=== PATIENT | female | born 1970 | race African-American/Black ===

== ENCOUNTER 2017-12-13 15:19 | Emergency (ER) | payer MEDICARE, MEDICAID ==
[2017-12-13 15:54] LABS: #Eosinphils 0.1 thou/uL (0.0-0.7); #Lymphocytes 1.8 thou/uL (1.20-3.40); #Monocytes 0.4 thou/uL (0.11-0.59); #Neutrophils 3.5 thou/uL (1.40-6.50); %Basophils 0.6 % (0.0-1.0); %Eosinophils 2.2 % (0.0-10.0); %Lymphocytes 30.2 % (21.0-51.0); %Monocytes 7.4 % (0.0-10.0); %Neutrophils 59.5 % (42.0-75.0); Hemoglobin 11.8 g/dL (12.0-16.0); Mean Corpuscular HGB CONC 33.6 g/dL (32.0-36.0); Mean Corpuscular Hemoglobin 28.1 pg (27.0-31.0); Mean Corpuscular Volume 83.5 fL (78.0-98.0); Mean Platelet Volume 8.9 fL (7.4-10.4); Platelet Count 219 thou/uL (130-400); RBC Distribution Width 12.1 % (11.5-14.5); White Blood Cell (WBC) Count 5.9 thou/uL (4.8-10.8)
--- NOTE | 2017-12-13 16:04 | RAD ---
SINGLE VIEW CHEST: Date: 12/13/17 COMPARISON: 12/27/14. HISTORY: Intermittent chest pain. FINDINGS: Single view of the chest shows a normal sized cardiomediastinal silhouette. There is no evidence of c onsolidation, mass, or pleural effusion. The bones are unremarkable. IMPRESSION: No evidence of acute cardiopulmonary disease. POS: TPC
[2017-12-13] MEDS ORDERED: Iopamidol 370 76% 100 ML VIAL ONE (16:14)
[2017-12-13 16:16] LABS: ALT (SGPT) 8 U/L (8-55); AST (SGOT) 9 U/L (5-34); Albumin 3.5 g/dL (3.5-5.0); Alkaline Phosphatase 85 U/L (40-150); Anion Gap 14 mmol/L (10-20); BUN (Urea Nitrogen) 8 mg/dL (7.0-18.7); Bilirubin, Total 0.7 mg/dL (0.2-1.2); Calc. Creatinine Clearance 0 mL/min (70-130); Calcium 8.5 mg/dL (7.8-10.44); Carbon Dioxide 24 mmol/L (22-29); Chloride 103 mmol/L (98-107); Estimated GFR-MDRD 74; Globulin 3.2 g/dL (2.4-3.5); Glucose 360 mg/dL (70-105); Potassium 4.7 mmol/L (3.5-5.1); Protein, Total 6.7 g/dL (6.0-8.3); Sodium 136 mmol/L (136-145)
[2017-12-13 16:20] LABS: CKMB 0.3 ng/mL (0-6.6); Troponin I Less than 0.010 ng/mL (< 0.028)
--- NOTE | 2017-12-13 17:29 | CT ---
CTA OF THORAX UTILIZING IV CONTRAST AND 3D REFORMATTED IMAGING: Date: 12/13/17 INDICATION: 47-year-old female with chest pain. FINDINGS: No central or segmental pulmonary embolus is evident. Heart and great vessels appear within normal li mits. No focal consolidation, pleural effusion, or pneumothorax is evident. No enlarged lymph nodes a re present. Visualized upper abdomen is unremarkable for acute abnormality. There is a stable bone is land within the left aspect of T4. IMPRESSION: No central or segmental pulmonary embolus demonstrated. POS: JEREMI
== END 2017-12-13 17:54 | disposition home or self-care (01) ==
LOC: ERS 15:19
DX: M94.0 Chondrocostal junction syndrome [Tietze] (principal); R07.89 Other chest pain; E11.9 Type 2 diabetes mellitus without complications; E78.5 Hyperlipidemia, unspecified; F41.9 Anxiety disorder, unspecified; F31.9 Bipolar disorder, unspecified; Z79.84 Long term (current) use of oral hypoglycemic drugs; Z79.899 Other long term (current) drug therapy
CPT/HCPCS: 36415; 71045; 71275; 80053; 82553; 84484; 85025; 93005

== ENCOUNTER 2018-07-27 14:40 | Emergency (ER) | payer MEDICARE, MEDICAID ==
[2018-07-27] MEDS ORDERED: HYDROcodone/Acetaminophen 10/325 mg Tablet ONE (15:53)
[2018-07-27 17:41] LABS: Bilirubin Negative (Negative); Blood, Urine Negative (Negative); Clarity CLEAR (Clear); Glucose, Urine (Dipstick) >=1000 mg/dL (Negative); Leukocyte Negative (Negative); Nitrite Negative (Negative); Protein, Urine (Dipstick) Negative (Neg-Trace); Specific Gravity, Urine 1.028 (1.002-1.036); pH, Urine 6.5 (5.0-9.0)
[2018-07-27 17:47] LABS: #Eosinphils 0.2 thou/uL (0.0-0.7); #Lymphocytes 1.9 thou/uL (1.20-3.40); #Monocytes 0.7 thou/uL (0.11-0.59); #Neutrophils 4.5 thou/uL (1.40-6.50); %Basophils 0.5 % (0.0-1.0); %Eosinophils 2.5 % (0.0-10.0); %Lymphocytes 25.9 % (21.0-51.0); %Monocytes 9.7 % (0.0-10.0); %Neutrophils 61.3 % (42.0-75.0); Hemoglobin 12.4 g/dL (12.0-16.0); Mean Corpuscular HGB CONC 34.5 g/dL (32.0-36.0); Mean Corpuscular Hemoglobin 28.6 pg (27.0-31.0); Mean Corpuscular Volume 83.1 fL (78.0-98.0); Mean Platelet Volume 9.1 fL (7.4-10.4); Platelet Count 187 thou/uL (130-400); RBC Distribution Width 11.4 % (11.5-14.5); Red Blood Cell (RBC) Count 4.32 mill/uL (4.20-5.40); White Blood Cell (WBC) Count 7.3 thou/uL (4.8-10.8)
[2018-07-27 18:06] LABS: ALT (SGPT) 39 U/L (8-55); AST (SGOT) 7 U/L (5-34); Acetaminophen Less than 6.0 mcg/mL (10.0-30.0); Albumin 3.4 g/dL (3.5-5.0); Alcohol Less than 10 mg/dL (Less than 10); Alkaline Phosphatase 95 U/L (40-150); Anion Gap 12 mmol/L (10-20); BUN (Urea Nitrogen) 6 mg/dL (7.0-18.7); Bilirubin, Total 0.5 mg/dL (0.2-1.2); CK (CPK) 45 U/L (29-168); Calc. Creatinine Clearance 0 mL/min (70-130); Calcium 8.7 mg/dL (7.8-10.44); Carbon Dioxide 26 mmol/L (22-29); Chloride 101 mmol/L (98-107); Estimated GFR-MDRD Greater than 90; Globulin 3.2 g/dL (2.4-3.5); Glucose 193 mg/dL (70-105); Potassium 3.8 mmol/L (3.5-5.1); Protein, Total 6.6 g/dL (6.0-8.3); Salicylate Less than 8.0 mg/dL (15.0-30.0); Sodium 135 mmol/L (136-145)
[2018-07-27 18:11] LABS: Amphetamine Not Detected (NotDetected); Benzodiazepine Screen Not Detected (NotDetected); Cocaine Metabolite Screen Not Detected (NotDetected); Medtox Reader # READER 1; Methamphetamine Not Detected (NotDetected); Opiate Screen Not Detected (NotDetected); Phencyclidine (PCP) Not Detected (NotDetected); THC/Cannabinoid Screen Not Detected (NotDetected)
[2018-07-27 18:12] LABS: Barbiturates Screen Not Detected (NotDetected); Medtox Control Line Valid? VALID (VALID); Methadone Not Detected (NotDetected); Oxycodone Screen Not Detected (NotDetected); Tricyclic Screen Detected (NotDetected)
[2018-07-27] MEDS ORDERED: Fluconazole 100 MG TAB PO SCH (20:30)
[2018-07-27] MEDS ORDERED: Ibuprofen 200 MG TAB ONE (22:41)
[2018-07-27] MEDS ORDERED: metroNIDAZOLE 250 MG TAB ONE (22:50)
[2018-07-29 00:38] LABS: Chlamydia by PCR Not Detected (NotDetected); GC by PCR Not Detected (NotDetected)
== END 2018-07-28 02:04 ==
LOC: ERS 14:40
DX: F31.9 Bipolar disorder, unspecified (principal); N89.8 Other specified noninflammatory disorders of vagina; E11.9 Type 2 diabetes mellitus without complications; E78.5 Hyperlipidemia, unspecified; F41.9 Anxiety disorder, unspecified; F25.0 Schizoaffective disorder, bipolar type; Z79.84 Long term (current) use of oral hypoglycemic drugs; Z79.899 Other long term (current) drug therapy
CPT/HCPCS: 36415; 51701; 80053; 80306; 80307; 81003; 82550; 84443; 85025; 87252; 87480; 87491; 87510; 87591; 87660; 93005

== ENCOUNTER 2018-12-28 11:46 | Emergency (ER) | payer MEDICARE, MEDICAID | END 2018-12-28 14:06 | LOC: ERS 11:46 | DX: Z53.21 Procedure and treatment not carried out due to patient leaving prior to being seen by health care provider (principal) | CPT/HCPCS: 93005 ==

== ENCOUNTER 2019-01-26 00:04 | Emergency (ER) | payer MEDICARE, MEDICAID ==
[2019-01-26 00:52] LABS: Bacteria/HPF None Seen HPF (None Seen); Bilirubin Negative (Negative); Blood, Urine Negative (Negative); Clarity Clear (Clear); Glucose, Urine (Dipstick) Greater than 1000 mg/dL (Negative); Leukocyte 75 Leu/uL (Negative); Nitrite Negative (Negative); Pregnancy Test - Urine (BHCG) Negative (Negative); Pregu Control Background? CLEAR/WHITE (CLR/WHITE); Pregu Control Bar Appear? YES (CONTROL BAR); Protein, Urine (Dipstick) Negative (Neg-Trace); RBC/HPF 0-3 HPF (0-3); Specific Gravity 1.036 (1.002-1.036); Urobilinogen Normal mg/dL (Less than 2)
== END 2019-01-26 01:12 | disposition home or self-care (01) ==
LOC: ERS 00:04
DX: E11.9 Type 2 diabetes mellitus without complications (principal); E78.5 Hyperlipidemia, unspecified; E78.00 Pure hypercholesterolemia, unspecified; I10 Essential (primary) hypertension; F41.9 Anxiety disorder, unspecified; F31.9 Bipolar disorder, unspecified; F25.9 Schizoaffective disorder, unspecified; Z79.899 Other long term (current) drug therapy; Z79.84 Long term (current) use of oral hypoglycemic drugs
CPT/HCPCS: 36416; 81003; 81015; 81025; 99283

== ENCOUNTER 2019-06-16 21:10 | Inpatient (IN) | payer MEDICARE, MEDICAID ==
--- NOTE | 2019-06-16 22:08 | RAD ---
Chest one view HISTORY: Chest pain. COMPARISON: 12/13/2017. FINDINGS: Cardiac silhouette is magnified by projection. Pulmonary vasculature is unremarkable. Mediastinum is midline. No lobar consolidation or evidence of pneumothorax. planograph operator leads overlie the chest. IMPRESSION : No abnormalities are demonstrated.
[2019-06-16 22:09] LABS: #Basophils 0.1 thou/uL (0.0-0.2); #Eosinphils 0.2 thou/uL (0.0-0.7); #Lymphocytes 2.5 thou/uL (1.20-3.40); #Monocytes 0.5 thou/uL (0.11-0.59); #Neutrophils 5.2 thou/uL (1.40-6.50); %Basophils 1.2 % (0.0-1.0); %Eosinophils 1.9 % (0.0-10.0); %Lymphocytes 29.4 % (21.0-51.0); %Monocytes 5.7 % (0.0-10.0); %Neutrophils 61.9 % (42.0-75.0); Hemoglobin 13.5 g/dL (12.0-16.0); Mean Corpuscular HGB CONC 36.2 g/dL (32.0-36.0); Mean Corpuscular Hemoglobin 31.1 pg (27.0-31.0); Mean Corpuscular Volume 85.8 fL (78.0-98.0); Mean Platelet Volume 9.3 fL (7.4-10.4); Platelet Count 200 thou/uL (130-400); RBC Distribution Width 11.5 % (11.5-14.5); Red Blood Cell (RBC) Count 4.35 mill/uL (4.20-5.40); White Blood Cell (WBC) Count 8.4 thou/uL (4.8-10.8)
[2019-06-16 22:28] LABS: ALT (SGPT) 138 U/L (8-55); AST (SGOT) 142 U/L (5-34); Albumin 3.7 g/dL (3.5-5.0); Alkaline Phosphatase 93 U/L (40-110); Anion Gap 15 mmol/L (10-20); BUN (Urea Nitrogen) 10 mg/dL (7.0-18.7); Bilirubin, Total 0.7 mg/dL (0.2-1.2); CK (CPK) 62 U/L (29-168); Calc. Creatinine Clearance 0 mL/min (70-130); Calcium 8.8 mg/dL (7.8-10.44); Carbon Dioxide 22 mmol/L (22-29); Chloride 106 mmol/L (98-107); Estimated GFR-MDRD Greater than 90; Globulin 3.1 g/dL (2.4-3.5); Glucose 155 mg/dL (70-105); Lipase 36 U/L (8-78); Potassium 3.6 mmol/L (3.5-5.1); Protein, Total 6.8 g/dL (6.0-8.3); Sodium 139 mmol/L (136-145)
[2019-06-16] MEDS ORDERED: Aspirin Chewable 81 MG TAB ONE (22:42)
[2019-06-16] MEDS ORDERED: Metoprolol Tartrate 25 MG TAB ONE (22:42)
[2019-06-16] MEDS ORDERED: Nitroglycerin 2% Ointment 1 INCH/1 GM Packet ONE (23:12)
[2019-06-17] MEDS ORDERED: Senokot S 8.6-50 MG TAB PO PRN (01:01)
[2019-06-17] MEDS ORDERED: Dextrose 5% in Water 1,000 ML IV PRN ×2 (01:04→09:45)
[2019-06-17] MEDS ORDERED: Dextrose 50% Abboject 50 ML SYRINGE SLOW IVP PRN ×2 (01:04→09:45)
[2019-06-17] MEDS ORDERED: Insulin Regular 300 UNITS/3 ML VIAL SC PRN (01:04)
[2019-06-17] MEDS ORDERED: Sodium Chloride 0.9% 1,000 ML IV SCH (01:15)
[2019-06-17 01:29] VITALS: BMI 26.9
[2019-06-17] MEDS: Acetaminophen 325 MG TAB PO PRN ×3 (02:04→17:30)
[2019-06-17] MEDS ORDERED: hydrALAZINE 20 MG/ML VIAL SLOW IVP PRN (02:06)
[2019-06-17] MEDS ORDERED: Temazepam 15 MG CAP PO PRN (02:06)
[2019-06-17 02:11] LABS: Troponin I Less than 0.010 ng/mL (< 0.028)
[2019-06-17] MEDS: Nitroglycerin 0.4 MG TAB (25 Tab Bottle) SL PRN ×3 (02:27→19:11)
[2019-06-17] MEDS ORDERED: Magnesium 2 GM/50 ML 2 GM in Premix Bag 1 BAG IVPB SCH (03:00)
[2019-06-17 04:52] LABS: #Eosinphils 0.3 thou/uL (0.0-0.7); #Lymphocytes 3.2 thou/uL (1.20-3.40); #Monocytes 0.6 thou/uL (0.11-0.59); #Neutrophils 3.7 thou/uL (1.40-6.50); %Basophils 0.4 % (0.0-1.0); %Lymphocytes 40.7 % (21.0-51.0); %Monocytes 7.5 % (0.0-10.0); %Neutrophils 47.4 % (42.0-75.0); Hemoglobin 11.2 g/dL (12.0-16.0); Mean Corpuscular HGB CONC 33.4 g/dL (32.0-36.0); Mean Corpuscular Hemoglobin 28.9 pg (27.0-31.0); Mean Corpuscular Volume 86.5 fL (78.0-98.0); Mean Platelet Volume 9.9 fL (7.4-10.4); Platelet Count 194 thou/uL (130-400); RBC Distribution Width 11.5 % (11.5-14.5); Red Blood Cell (RBC) Count 3.88 mill/uL (4.20-5.40); White Blood Cell (WBC) Count 7.8 thou/uL (4.8-10.8)
[2019-06-17 04:57] LABS: ALT (SGPT) 100 U/L (8-55); AST (SGOT) 62 U/L (5-34); Albumin 2.9 g/dL (3.5-5.0); Alkaline Phosphatase 83 U/L (40-110); Anion Gap 13 mmol/L (10-20); BUN (Urea Nitrogen) 11 mg/dL (7.0-18.7); Bilirubin, Total 0.5 mg/dL (0.2-1.2); Calc. Creatinine Clearance 125 mL/min (70-130); Calcium 7.9 mg/dL (7.8-10.44); Carbon Dioxide 22 mmol/L (22-29); Cardiac Risk 3.8 (Less than 4.5); Chloride 108 mmol/L (98-107); Cholesterol 106 mg/dl (< 200 Desired); Estimated GFR-MDRD Greater than 90; Glucose 156 mg/dL (70-105); HDL Cholesterol 28 mg/dL (>60 Neg Risk); LDL Cholesterol, Calculated 42 mg/dL; Potassium 3.9 mmol/L (3.5-5.1); Protein, Total 5.9 g/dL (6.0-8.3); Sodium 139 mmol/L (136-145); Triglycerides 181 mg/dL (Less than 150)
[2019-06-17 05:02] LABS: Troponin I 0.022 ng/mL (< 0.028)
--- NOTE | 2019-06-17 06:13 | HP ---
PRIMARY CARE PHYSICIAN: At [facility] in [place]. CHIEF COMPLAINT: Rapid heart rate, SVT, and chest pain. HISTORY OF PRESENT ILLNESS: Ms. Durbin is a very pleasant 49-year-old female, who was brought to the emergency room today via EMS after she had sustained tachycardia she reports about an hour with some chest pain. When EMS picked her up, the rhythm strip indicated she was in SVT. They gave her two doses of adenosine, which brought her back to her normal tachycardic state. She reports that she has had kind of a fast heart rate now for many years. She about five years ago saw Dr. Chilel for this and then has not been back to see her. Her primary care doctor put her on some Lopressor 25 mg p.o. twice a day, which she takes faithfully and reports that her heart rate varies throughout the day and it does tend to jump up, but if she lays down or rests, takes it easy, then it comes back down. She reports that she is always a little tachycardic and usually can control the rate with rest. While in the emergency room, her heart rate stayed in the low 100s and she complained of chest pain at 5/10. She was given some nitroglycerin paste, 1 L of normal saline, and an aspirin 324, and then admitted for further evaluation. She does have a past medical history pertinent for diabetes, type 2; hyperlipidemia; and hypertension. Her EKG in the emergency room shows sinus tach, ST segments are normal, T-waves are normal. She is going to be admitted to the telemetry unit for further evaluation. REVIEW OF SYSTEMS: The patient reports chest pain. Reports rapid heart rate. Reports a little bit of shortness of breath with it. Denies any dyspnea on exertion. Denies any edema. Denied any nausea. She denies any fever, chills, or any ill contacts. Denies any abdominal pain, nausea, vomiting, or diarrhea. All systems reviewed and are negative unless mentioned in the HPI. PAST MEDICAL HISTORY: Diabetes, type 2; hyperlipidemia; and hypertension. PAST SURGICAL HISTORY: Cholecystectomy, hysterectomy, and tubal ligation. PSYCHIATRIC HISTORY: Anxiety, bipolar, and depression. SOCIAL HISTORY: She lives at home alone. She denies any alcohol or drug use. No smoking history. ALLERGIES: TO CODEINE. CURRENT MEDICATIONS: Per the ER system; 1. 400 mg p.o. b.i.d. 2. Metformin 1000 mg p.o. b.i.d. 3. Aristada 882 mg IM once a month. 4. BuSpar 15 mg p.o. b.i.d. 5. Prozac 20 mg p.o. daily. 6. Hydroxyzine 1 to 2 tablets p.o. at bedtime, 25 mg. 7. NovoLog sliding scale as needed. 8. Tresiba 55 units subcu b.i.d. 9. Victoza 1.8 units daily. 10. Lisinopril 10 mg p.o. daily. 11. Metoprolol 25 mg p.o. b.i.d. 12. Requip p.o. at bedtime. 13. Protonix 40 mg p.o. daily. 14. Seroquel 400 mg p.o. at bedtime. PHYSICAL EXAMINATION: VITAL SIGNS: Blood pressure 137/75, pulse is 103, respiration rate is 15, temp is 98.8, and PO2 is 97% on room air. CONSTITUTIONAL: She appears nontoxic. She is alert and oriented to person, place, and time. HEENT: Head is atraumatic and normocephalic. Eyes; pupils are equal, round, and reactive to light. Eyelids normal to inspection. ENT; mouth exam is normal. Mucous membranes are moist. NECK: Normal range of motion. Trachea is midline. RESPIRATORY/CHEST: Breath sounds are clear. Chest expansion is equal. CARDIOVASCULAR: Tachycardic. ABDOMEN: Nontender. Bowel sounds are heard. EXTREMITIES: Upper extremity; normal range of motion. Motor strength is normal. Radial pulses are normal. Lower extremity; normal range of motion. Motor strength is normal. Pedal pulses are normal. NEURO: The patient is oriented to person, place, and time. Speech is normal. SKIN: Warm, dry, normal in color. LABORATORY DATA: Chemistry unremarkable. Glucose at 155, AST 142, and ALT 138. Troponin x2 is undetectable. TSH is 1.2. Magnesium is 1.5. D-dimer 0.43. Hemoglobin 13.5, hematocrit is 37.3, and platelet count is 200. ASSESSMENT AND PLAN: 1. Supraventricular tachycardia, sinus tach. She was given fluids. We will continue the normal saline at 75 mL per hour. We will ask Cardiology to consult. Trend troponins. Aspirin was given in the ER. We will continue this daily. 2. Chest pain, see #1. 3. Diabetes, type 2. Sliding scale as needed for coverage, a.c. and at bedtime Accu-Cheks. We will continue home medication prior to discharge. 4. Hypertension. We will continue home medications. 5. Restless leg. We will continue home medications. 6. Bipolar depression. We will continue her home medications. 7. Hypomagnesium. We will give patient 2 g of magnesium and recheck. 8. Deep venous thrombosis/gastrointestinal prophylaxis started. 9. Hospital course is dependent on clinical findings. Job ID: [id number]
[2019-06-17] MEDS: Lisinopril 10 MG TAB PO SCH (08:27)
[2019-06-17] MEDS: Metoprolol Tartrate 25 MG TAB PO SCH ×2 (08:27→20:46)
[2019-06-17] MEDS: FLUoxetine HCl 20 MG CAP PO SCH (08:27)
[2019-06-17] MEDS: Enoxaparin Sodium 40 MG/0.4 ML SYRINGE SC SCH (08:27)
[2019-06-17] MEDS: Famotidine 20 MG TAB PO SCH ×2 (08:27→20:46)
[2019-06-17] MEDS: busPIRone HCl 5 MG TAB PO SCH ×2 (08:27→20:46)
[2019-06-17 09:13] LABS: Amphetamine Not Detected (NotDetected); Barbiturates Screen Not Detected (NotDetected); Benzodiazepine Screen Not Detected (NotDetected); Cocaine Metabolite Screen Not Detected (NotDetected); Medtox Control Line Valid? VALID (VALID); Medtox Reader # READER 1; Methadone Not Detected (NotDetected); Methamphetamine Not Detected (NotDetected); Opiate Screen Not Detected (NotDetected); Oxycodone Screen Not Detected (NotDetected); Phencyclidine (PCP) Not Detected (NotDetected); THC/Cannabinoid Screen Not Detected (NotDetected); Tricyclic Screen Detected (NotDetected)
[2019-06-17] MEDS: HumaLOG 300 UNITS/3 ML VIAL SC SCH ×2 (11:36→17:30)
[2019-06-17] MEDS: Insulin Glargine 40 UNITS in Pre-Filled Syringe 1 EACH SC SCH (21:46)
[2019-06-18 05:43] LABS: Anion Gap 10 mmol/L (10-20); BUN (Urea Nitrogen) 9 mg/dL (7.0-18.7); Calc. Creatinine Clearance 114 mL/min (70-130); Calcium 7.9 mg/dL (7.8-10.44); Carbon Dioxide 20 mmol/L (22-29); Chloride 108 mmol/L (98-107); Estimated GFR-MDRD Greater than 90; Glucose 231 mg/dL (70-105); Magnesium 1.6 mg/dL (1.6-2.6); Potassium 4.1 mmol/L (3.5-5.1); Sodium 134 mmol/L (136-145)
[2019-06-18] MEDS: HumaLOG 300 UNITS/3 ML VIAL SC SCH ×3 (08:57→17:00)
[2019-06-18] MEDS: Famotidine 20 MG TAB PO SCH ×2 (08:58→21:28)
[2019-06-18] MEDS: busPIRone HCl 5 MG TAB PO SCH ×2 (08:58→21:27)
[2019-06-18] MEDS: Lisinopril 10 MG TAB PO SCH (08:59)
[2019-06-18] MEDS: FLUoxetine HCl 20 MG CAP PO SCH (08:59)
[2019-06-18] MEDS: Metoprolol Tartrate 25 MG TAB PO SCH ×2 (08:59→21:28)
[2019-06-18] MEDS: Insulin Glargine 40 UNITS in Pre-Filled Syringe 1 EACH SC SCH (08:59)
[2019-06-18] MEDS: Enoxaparin Sodium 40 MG/0.4 ML SYRINGE SC SCH (09:00)
[2019-06-18] MEDS ORDERED: PROPOFOL 200 MG/20 ML VIAL ONE (11:38)
--- NOTE | 2019-06-18 12:49 | CON ---
DATE OF CONSULTATION: 06/17/2019 Dictated by Lashawn Hdez, nurse practitioner, as a scribe for Dr. Layo Wilkerson. Dr. Layo Wilkerson performed this consultation. REASON FOR CONSULTATION: Referral was placed for supraventricular tachycardia by Dr. Lara. HISTORY OF PRESENT ILLNESS: Ms. Durbin is a 49-year-old woman who came to the hospital with sustained heart racing and palpitations with some associated chest discomfort. She has had a history of heart racing and palpitations since at least as far back as when she was 30 years old. She called 911. EMS arrived and found she was in SVT. They gave her 2 doses of adenosine, which terminated her SVT. She has been on metoprolol tartrate 25 b.i.d. for years for these heart racing and palpitations. She was placed in observation given her associated chest pain. Since being admitted, she has not had any recurrent episodes and feels well. REVIEW OF SYSTEMS: A 12-point review of systems is negative except that listed above in HPI. PAST MEDICAL HISTORY: 1. Diabetes. 2. Hyperlipidemia. 3. Hypertension. 4. Anxiety. 5. Bipolar. 6. Depression. 7. Cholecystectomy. 8. Hysterectomy. 9. Tubal ligation. SOCIAL HISTORY: Lives at home. Denies alcohol or illicit drug use. No tobacco. FAMILY HISTORY: Noncontributory. ALLERGIES: CODEINE. HOME MEDICATIONS: Include: 1. Glucophage 1000 mg b.i.d. 2. Hydroxyzine p.r.n. 3. Buspirone 15 mg b.i.d. 4. Seroquel 400 mg nightly. 5. Protonix 40 mg daily. 6. Mirtazapine 45 mg nightly. 7. Metoprolol tartrate 25 mg b.i.d. 8. Lisinopril 10 mg daily. 9. Victoza subcutaneous daily. 10. Tresiba 55 units subcutaneously b.i.d. 11. NovoLog as directed sliding scale. 12. Prozac 20 mg daily. 13. Aristada intramuscular injection as directed. OBJECTIVE: VITAL SIGNS: Temperature 97.4, pulse 94, blood pressure 118/72, respirations 14, and oxygen 98% on room air. GENERAL: The patient is alert and oriented. Speech is clear. Affect is appropriate. She is in no apparent distress at the time of exam. NECK: Supple without jugular venous distention. There is no lymphadenopathy. Trachea is midline. HEART: Rate is irregularly irregular with crisp S1 and S2. PMI is nondisplaced. LUNGS: Respirations are even and unlabored. Lung sounds are clear to auscultation bilaterally. ABDOMEN: Soft and nontender without palpable masses. EXTREMITIES: Warm and dry to touch without clubbing, cyanosis, or edema. NEUROLOGIC: Grossly intact and nonfocal. Gait was not assessed. LABORATORY DATA: Hematology was unremarkable. D-dimer was negative. Chemistry: Potassium 3.9, and creatinine 0.65. Magnesium 1.5. TSH 0.76. Troponins were negative. DATABASE: Telemetry and EKGs show sinus tachycardia and sinus rhythm. IMPRESSION: 1. Paroxysmal supraventricular tachycardia, responsive to adenosine for termination. 2. History of heart racing and palpitations for greater than 20 years. PLAN AND RECOMMENDATIONS: Ms. Durbin was found to be in SVT and received 2 doses of adenosine, which was successful at terminating her arrhythmia. 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 Unfortunately, the telemetry tracings are not available for review. We discussed treatment options including continued beta-leigh therapy and electrophysiology study with ablation. At this point, my recommendation is for electrophysiology study with ablation given the relatively simple ablation if this is AVNRT and high success rates. We also discussed the possibility of an accessory pathway, needing transseptal access. Risks associated to include bleeding at the groin site and hematoma formation, abnormal heart rhythms, and bleeding around the heart as well as stroke. The patient voices understanding. She wishes to proceed. We will keep her n.p.o. after midnight and hope to move forward with the ablation tomorrow afternoon if schedule permitting. If unable to accommodate the schedule, she may be brought back as an outpatient as well. Thank you for allowing me to participate in the care of this patient. Job ID: [id number]
[2019-06-18] MEDS: Acetaminophen 325 MG TAB PO PRN ×2 (12:52→21:29)
--- NOTE | 2019-06-18 14:57 | PDOC.EP ---
- Subjective Date: 06/18/19 Time: 09:30 Interval History: This is an electrophysiology follow-up note for a supraventricular tachycardia. Ms. Durbin is feeling well. She has not had any recurrence symptoms of her SVT and telemetry shows stable heart rates. She is currently NPO for possible EP study and ablation later today. - Review of Systems Constitutional: denies: chills, fever, malaise, sweats, weakness Respiratory: denies: cough, dry, hemoptysis, pleuritic pain, shortness of breath , SOB with excertion, sputum, wheezing Cardiology: denies: chest pain, edema, heart racing, light headedness, orthopnea , paroxysmal noc. dyspnea, palpitations, passing out, pleuritic pain, pressure, swelling Neurological: denies: headache, vision changes - Objective Allergies/Adverse Reactions: Allergies Allergy/AdvReac Type Severity Reaction Status Date / Time codeine Allergy Verified 06/17/19 01:55 Current Medications Acetaminophen (Tylenol) 650 mg PO Q4H PRN PRN Reason: Headache/Fever/Mild Pain (1-3) Last Admin: 06/18/19 12:52 Dose: 650 mg Buspirone HCl (Buspar) 15 mg PO BID [facility] Last Admin: 06/18/19 08:58 Dose: 15 mg Dextrose/Water (Dextrose 50%) 25 gm SLOW IVP PRN PRN PRN Reason: Hypoglycemia Enoxaparin Sodium (Lovenox) 40 mg SC 0900 [facility] Last Admin: 06/18/19 09:00 Dose: 40 mg Famotidine (Pepcid) 20 mg PO BID [facility] Last Admin: 06/18/19 08:58 Dose: 20 mg Fentanyl (Sublimaze) 25 mcg SLOW IVP Q2H PRN PRN Reason: Moderate Pain (4-6) Fluoxetine HCl (Prozac) 20 mg PO DAILY [facility] Last Admin: 06/18/19 08:59 Dose: 20 mg Glucagon (Glucagon) 1 mg IM PRN PRN PRN Reason: Hypoglycemia Hydralazine HCl (Apresoline) 10 mg SLOW IVP Q4H PRN PRN Reason: SBP > 180 and HR < 70 Insulin Glargine 40 units/ (Miscellaneous Medication) 0.4 mls @ 0 mls/hr SC BID [facility] Last Admin: 06/18/19 08:59 Dose: Not Given Dextrose/Water (D5w) 1,000 mls @ 0 mls/hr IV .Q0M PRN PRN Reason: Hypoglycemia Insulin Human Lispro (Humalog) 10 units SC [facility] Last Admin: 06/18/19 12:00 Dose: Not Given Insulin Human Lispro (Humalog) 0 units SC .AGGRESSIVE SLIDING PRN PRN Reason: Aggressive Correctional Scale Insulin Human Regular (Humulin R) 0 units SC .BEDTIME SLIDING SC PRN PRN Reason: Bedtime Correctional Scale Insulin Human Regular (Humulin R) 0 units SC .MILD SLIDING SCALE PRN PRN Reason: Mild Correctional Scale Lisinopril (Zestril) 10 mg PO DAILY [facility] Last Admin: 06/18/19 08:59 Dose: 10 mg Metoprolol Tartrate (Lopressor) 25 mg PO BID [facility] Last Admin: 06/18/19 08:59 Dose: 25 mg Nitroglycerin (Nitrostat) 0.4 mg SL Q5MIN PRN PRN Reason: Chest Pain Last Admin: 06/17/19 19:11 Dose: 1 tab Pantoprazole Sodium (Protonix) 40 mg PO DAILY [facility] Last Admin: 06/18/19 08:58 Dose: 40 mg Senna/Docusate Sodium (Senokot S) 2 tab PO BIDPRN PRN PRN Reason: Constipation Sodium Chloride (Flush - Normal Saline) 10 ml IVF PRN PRN PRN Reason: Saline Flush Last Admin: 06/17/19 01:38 Dose: 10 ml Temazepam (Restoril) 15 mg PO HSPRN PRN PRN Reason: Insomnia Vital Signs & Weight: Vital Signs Temp Pulse Resp BP BP Pulse Ox 06/18/19 11:19 98.3 F 91 16 135/81 100 06/18/19 08:52 98.4 F 93 14 135/81 99 06/18/19 04:28 99 F 89 16 140/75 100 Weight 168 lb 9.6 oz I/O: I/O 06/17/19 06/18/19 06/19/19 06:59 06:59 06:59 Intake Total 580 2280 Output Total 50 150 Balance 530 2130 - Physical Exam General: alert & oriented x3, appears well, no apparent distress, speech clear, affect appropriate HEENT: mucus membranes moist, normocephaly Neck: supple neck, midline trachea, no lymphadenopathy Cardiology: regular rate and rhythm, no murmur, PMI nondisplaced Lungs: clear to auscultation, normal breath sounds, no wheeze, rales, rhonchi Neurology: cranial nerve 2-12 intact, grossly intact, no lateralizing findings - Labs Result Diagrams: 06/17/19 03:53 06/18/19 04:46 - EKG Interpretation EKG Method: Telemetry EKG shows: Sinus rhythm - Assessment/Plan Assessment/Plan: 1. Paroxysmal supraventricular tachycardia, responsive to adenosine for termination. 2. History of heart racing and palpitations for greater than 20 years. We once again discussed possible treatment options for SVT including medications versus ablation. She is NPO and on the schedule for an EP study and possible ablation later today if the lab schedule allows. If unable to be completed today it is possible my associate Dr. Arndt would be able to do it tomorrow or she can return as an outpatient.
[2019-06-18] MEDS ORDERED: Fentanyl 100 MCG/2 ML VIAL ONE (17:00)
[2019-06-18] MEDS ORDERED: Midazolam HCl 2 mg/2 ml Vial ONE (17:00)
[2019-06-18] MEDS ORDERED: Heparin 10,000 UNITS/1 ML VIAL ONE (17:08)
[2019-06-18] MEDS ORDERED: Propofol 500 MG/50 ML VIAL ONE (17:24)
[2019-06-18] MEDS ORDERED: Isoproterenol 0.2 MG/1 ML AMP ONE (18:07)
--- NOTE | 2019-06-18 18:42 | PDOC.HOSPP ---
- Subjective Encounter Date: 06/18/19 Encounter Time: 09:00 Subjective: no overnight events. This morning, feels well and has no complaints. Pending ablation of SVT - Objective Vital Signs & Weight: Vital Signs (12 hours) Temp Pulse Resp BP BP Pulse Ox 06/18/19 15:12 93 16 128/77 98 06/18/19 11:19 98.3 F 91 16 135/81 100 06/18/19 08:52 98.4 F 93 14 135/81 99 Weight Weight 168 lb 9.6 oz I&O: 06/17/19 06/18/19 06/19/19 06:59 06:59 06:59 Intake Total 580 2280 Output Total 50 150 Balance 530 2130 Result Diagrams: 06/17/19 03:53 06/18/19 04:46 Additional Labs: Accuchecks 06/18/19 06/18/19 06/18/19 16:43 15:15 10:53 POC Glucose 99 105 180 H 06/18/19 06/17/19 06:07 20:37 POC Glucose 253 H 123 H Hospitalist ROS - Review of Systems Constitutional: denies: fever, chills, sweats, weakness, malaise, other Respiratory: denies: cough, dry, shortness of breath, hemoptysis, SOB with excertion, pleuritic pain, sputum, wheezing, other Cardiovascular: denies: chest pain, palpitations, orthopnea, paroxysmal noc. dyspnea, edema, light headedness, other Gastrointestinal: denies: nausea, vomiting, abdominal pain, diarrhea, constipation, melena, hematochezia, other - Medication Medications: Active Medications Generic Name Dose Route Start Last Admin Trade Name Freq PRN Reason Stop Dose Admin Acetaminophen 650 mg 06/17/19 01:01 06/18/19 12:52 Tylenol PO 650 mg Q4H PRN Administration Headache/Fever/Mild Pain (1-3) Buspirone HCl 15 mg 06/17/19 09:00 06/18/19 08:58 Buspar PO 15 mg BID ALISA Administration Enoxaparin Sodium 40 mg 06/17/19 09:00 06/18/19 09:00 Lovenox SC 40 mg 0900 ALISA Administration Famotidine 20 mg 06/17/19 09:00 06/18/19 08:58 Pepcid PO 20 mg BID ALISA Administration Fluoxetine HCl 20 mg 06/17/19 09:00 06/18/19 08:59 Prozac PO 20 mg DAILY ALISA Administration Insulin Human Lispro 10 units 06/17/19 12:00 06/18/19 17:00 Humalog SC Not Given TID-[facility] ALISA Lisinopril 10 mg 06/17/19 09:00 06/18/19 08:59 Zestril PO 10 mg DAILY ALISA Administration Metoprolol Tartrate 25 mg 06/17/19 09:00 06/18/19 08:59 Lopressor PO 25 mg BID ALISA Administration Nitroglycerin 0.4 mg 06/17/19 02:06 06/17/19 19:11 Nitrostat SL 1 tab Q5MIN PRN Administration Chest Pain Pantoprazole Sodium 40 mg 06/17/19 09:00 06/18/19 08:58 Protonix PO 40 mg DAILY ALISA Administration Sodium Chloride 10 ml 06/17/19 01:01 06/17/19 01:38 Flush - Normal Saline IVF 10 ml PRN PRN Administration Saline Flush - Exam General Appearance: NAD, awake alert Neck: no JVD Heart: RRR, no murmur, no gallops, no rubs Respiratory: CTAB, no wheezes, no rales, no ronchi Gastrointestinal: soft, non-tender, non-distended, normal bowel sounds Extremities: no edema Psychiatric: normal affect, normal behavior, A&O x 3 Hosp A/P - Plan #SVT -currently sinus / sinus tach -EP onboard, pending ablation -continue beta leigh as per EP #HTN -well controlled; continue lisinopril and beta leigh #T2DM -blood glucose well controlled -reduce lantus to half dose as long as NPO pending ablation; use correction dose only
[2019-06-18] MEDS ORDERED: Promethazine HCl 25 MG/ML VIAL SLOW IVP PRN (19:11)
[2019-06-18] MEDS ORDERED: Ondansetron HCl/PF 4 MG/2 ML Vial IVP PRN (19:11)
[2019-06-18] MEDS ORDERED: Promethazine HCl 25 MG/ML VIAL IM PRN (19:11)
[2019-06-18] MEDS: Insulin Glargine 20 UNITS in Pre-Filled Syringe 1 EACH SC SCH (21:35)
--- NOTE | 2019-06-19 02:47 | OP ---
DATE OF PROCEDURE: 06/18/2019 PROCEDURE PERFORMED: Electrophysiology study and radiofrequency ablation. REASON FOR PROCEDURE: Mrs. Durbin is a 49-year-old female with history of recurrent palpitations prior diagnosis of supraventricular tachycardia, now readmitted with another episode, which was adenosine terminating. No strips available. Echocardiogram reveals normal LVEF, fat pad, and pericardial space. DESCRIPTION OF PROCEDURE: The patient received deep sedation with Anesthesia specialist. After adequate level of sedation achieved the left and right femoral venous area was prepped, draped, and anesthetized. Using subcutaneous lidocaine under ultrasound guidance on the left side, a 6 and 8-Norwegian sheath were introduced through which an octapolar and then a decapolar catheter were advanced to the right atrium, right ventricle, His bundle, CS positions. On the right side, an 8- Norwegian sheath was introduced under ultrasound guidance and into the right femoral vein. Through this, a 4-mm ablation catheter was advanced to the right atrium. This EP study was performed demonstrating VA Wenckebach at 370 milliseconds with concentric retrograde VA conduction. Anterior Wenckebach was 360 milliseconds without evidence of accessory pathway, no aberration noted at high speed atrial pacing. AV robert ERP was 500/230 milliseconds, definite dual AV robert physiology was present at baseline without extra beats. Isuprel was administered at this point at 6 mcg per minute and with Isuprel and burst atrial pacing, we were able to induce one-to-one tachycardia with cycle length about 340 milliseconds. Ventricular overdrive pacing entering the tachycardia and CORNELIO response was noted at the end of the pacing train. Following this with a 4 mm ablation catheter, 3D map of the right atrium, His bundle, CS were obtained. The radiofrequency ablation was performed at a slow pathway area. A total of 3 lesions delivered with total duration 1 minute and 25 seconds at 50 mercado at 60 degrees cutoff. During the slow pathway ablation, junctional rhythm was seen, no AV block was noted. Following that, the HV interval did not change at 39 milliseconds, AH 88 milliseconds, cycle length 494 milliseconds on Isuprel transitioned to 80 milliseconds. The AV robert ERP was 500/280 milliseconds, AV Wenckebach cycle length was 220 milliseconds on Isuprel post ablation. Then I found it did not change from baseline. The catheter was removed from the body and the sheaths were also removed and manual pressure was applied to obtain hemostasis. CONCLUSION: 1. Easily inducible AV robert reentrant tachycardia with short VA timing and CORNELIO response post ventricular overdrive pacing. 2. Slow pathway ablation eliminated re-inducibility and also no AV jump was observed after ablation. 3. Normal His-Purkinje function, normal sinus robert function. No evidence of accessory pathway is noted. 4. No additional atrial arrhythmias were inducible. PLAN: Routine postop care and monitor for recurrent arrhythmias. Job ID: [id number] [facility]
[2019-06-19] MEDS: Acetaminophen 325 MG TAB PO PRN ×3 (05:01→19:54)
[2019-06-19] MEDS: Lisinopril 10 MG TAB PO SCH (07:48)
[2019-06-19] MEDS: busPIRone HCl 5 MG TAB PO SCH ×2 (07:48→19:54)
[2019-06-19] MEDS: Famotidine 20 MG TAB PO SCH ×2 (07:48→19:54)
[2019-06-19] MEDS: FLUoxetine HCl 20 MG CAP PO SCH (07:48)
[2019-06-19] MEDS: Insulin Glargine 20 UNITS in Pre-Filled Syringe 1 EACH SC SCH ×2 (07:49→21:23)
[2019-06-19] MEDS: Metoprolol Tartrate 25 MG TAB PO SCH (07:49)
[2019-06-19] MEDS: HumaLOG 300 UNITS/3 ML VIAL SC SCH ×3 (07:50→17:43)
[2019-06-19] MEDS: Enoxaparin Sodium 40 MG/0.4 ML SYRINGE SC SCH (07:50)
--- NOTE | 2019-06-19 09:30 | PDOC.EP ---
- Subjective Date: 06/19/19 Time: 09:28 Interval History: She is feeling well after her electrophysiology study and ablation yesterday. She is having no discomfort or bleeding issues with the groin access sites. She has had no heart racing or palpitations. She anticipates discharge later today - Review of Systems Constitutional: denies: chills, fever, malaise, sweats, weakness, other Respiratory: denies: cough, dry, hemoptysis, pleuritic pain, shortness of breath , SOB with excertion, sputum, wheezing, other Cardiology: denies: chest pain, edema, heart racing, light headedness, paroxysmal noc. dyspnea, orthopnea, palpitations, passing out, pleuritic pain, pressure, swelling, other Gastrointestinal: denies: abdominal pain, constipation, diarrhea, hematochezia, melena, nausea, vomitting, other Musculoskeletal: denies: unstable gait, falls, neck pain, shoulder pain, arm pain, hand pain, leg pain, foot pain, other - Objective Allergies/Adverse Reactions: Allergies Allergy/AdvReac Type Severity Reaction Status Date / Time codeine Allergy Verified 06/17/19 01:55 Current Medications Acetaminophen (Tylenol) 650 mg PO Q4H PRN PRN Reason: Headache/Fever/Mild Pain (1-3) Last Admin: 06/19/19 05:01 Dose: 650 mg Buspirone HCl (Buspar) 15 mg PO BID [facility] Last Admin: 06/19/19 07:48 Dose: 15 mg Dextrose/Water (Dextrose 50%) 25 gm SLOW IVP PRN PRN PRN Reason: Hypoglycemia Enoxaparin Sodium (Lovenox) 40 mg SC 0900 [facility] Last Admin: 06/19/19 07:50 Dose: 40 mg Famotidine (Pepcid) 20 mg PO BID [facility] Last Admin: 06/19/19 07:48 Dose: 20 mg Fentanyl (Sublimaze) 25 mcg SLOW IVP Q2H PRN PRN Reason: Moderate Pain (4-6) Fluoxetine HCl (Prozac) 20 mg PO DAILY [facility] Last Admin: 06/19/19 07:48 Dose: 20 mg Glucagon (Glucagon) 1 mg IM PRN PRN PRN Reason: Hypoglycemia Hydralazine HCl (Apresoline) 10 mg SLOW IVP Q4H PRN PRN Reason: SBP > 180 and HR < 70 Dextrose/Water (D5w) 1,000 mls @ 0 mls/hr IV .Q0M PRN PRN Reason: Hypoglycemia Insulin Glargine 20 units/ (Miscellaneous Medication) 0.2 mls @ 0 mls/hr SC BID [facility] Last Admin: 06/19/19 07:49 Dose: 0.2 mls Insulin Human Lispro (Humalog) 10 units SC TID-WM [facility] Last Admin: 06/19/19 07:50 Dose: 10 unit Insulin Human Lispro (Humalog) 0 units SC .AGGRESSIVE SLIDING PRN PRN Reason: Aggressive Correctional Scale Insulin Human Regular (Humulin R) 0 units SC .BEDTIME SLIDING SC PRN PRN Reason: Bedtime Correctional Scale Insulin Human Regular (Humulin R) 0 units SC .MILD SLIDING SCALE PRN PRN Reason: Mild Correctional Scale Lisinopril (Zestril) 10 mg PO DAILY [facility] Last Admin: 06/19/19 07:48 Dose: 10 mg Metoprolol Tartrate (Lopressor) 25 mg PO BID [facility] Last Admin: 06/19/19 07:49 Dose: 25 mg Nitroglycerin (Nitrostat) 0.4 mg SL Q5MIN PRN PRN Reason: Chest Pain Last Admin: 06/17/19 19:11 Dose: 1 tab Pantoprazole Sodium (Protonix) 40 mg PO DAILY [facility] Last Admin: 06/19/19 07:48 Dose: 40 mg Senna/Docusate Sodium (Senokot S) 2 tab PO BIDPRN PRN PRN Reason: Constipation Sodium Chloride (Flush - Normal Saline) 10 ml IVF PRN PRN PRN Reason: Saline Flush Last Admin: 06/17/19 01:38 Dose: 10 ml Temazepam (Restoril) 15 mg PO HSPRN PRN PRN Reason: Insomnia Vital Signs & Weight: Vital Signs Temp Pulse Resp BP Pulse Ox 06/19/19 07:36 99.9 F H 94 20 127/71 97 06/19/19 03:02 98.8 F 104 H 17 119/58 L 97 06/19/19 00:00 99 18 125/60 96 Weight 166 lb 4.8 oz I/O: I/O 06/18/19 06/19/19 06/20/19 06:59 06:59 06:59 Intake Total 2280 377 Output Total 150 350 Balance 2130 27 - Physical Exam General: alert & oriented x3, appears well, no apparent distress, speech clear, affect appropriate HEENT: mucus membranes moist, normocephaly Neck: supple neck, midline trachea, no JVD/HJR, no masses, no bruit, no lymphadenopathy, no thromegaly Cardiology: regular rate and rhythm Lungs: clear to auscultation, normal breath sounds, normal exam, no wheeze, rales, rhonchi, no wheezes, no rales, no rhonchi Neurology: cranial nerve 2-12 intact, grossly intact, no lateralizing findings Extremities: dry, strong pulses, warm Skin: groin sites stable - Labs Result Diagrams: 06/17/19 03:53 06/18/19 04:46 - EKG Interpretation EKG Method: Telemetry EKG shows: Sinus rhythm - Assessment/Plan Assessment/Plan: 1. 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 6 week follow up post ablation will be arranged. OK for DC by EP
[2019-06-19] MEDS ORDERED: Sodium Chloride 0.9% 1,000 ML IV SCH (12:30)
[2019-06-19 17:18] LABS: #Basophils 0.1 thou/uL (0.0-0.2); #Lymphocytes 0.8 thou/uL (1.20-3.40); #Monocytes 0.6 thou/uL (0.11-0.59); %Basophils 0.8 % (0.0-1.0); %Eosinophils 0.5 % (0.0-10.0); %Lymphocytes 11.1 % (21.0-51.0); %Monocytes 7.7 % (0.0-10.0); %Neutrophils 79.9 % (42.0-75.0); Hemoglobin 11.3 g/dL (12.0-16.0); Mean Corpuscular HGB CONC 35.4 g/dL (32.0-36.0); Mean Corpuscular Hemoglobin 30.3 pg (27.0-31.0); Mean Corpuscular Volume 85.6 fL (78.0-98.0); Mean Platelet Volume 9.3 fL (7.4-10.4); Platelet Count 145 thou/uL (130-400); RBC Distribution Width 11.3 % (11.5-14.5); Red Blood Cell (RBC) Count 3.72 mill/uL (4.20-5.40); White Blood Cell (WBC) Count 7.5 thou/uL (4.8-10.8)
[2019-06-19] MEDS: Sodium Chloride 0.9% 1,000 ML IV SCH (17:42)
[2019-06-19] MEDS: HumaLOG 300 UNITS/3 ML VIAL SC PRN (17:46)
[2019-06-19] MEDS: Cefepime 1 GM in Sodium Chloride 0.9% 100 ML IVPB SCH (17:50)
[2019-06-19] MEDS: Vancomycin 1 GM in Premix Bag 1 BAG IVPB SCH (17:50)
--- NOTE | 2019-06-19 17:52 | RAD ---
CHEST ONE VIEW: 06/19/19 INDICATION: History of fever, cough and inpatient status. COMPARISON: Prior exam dated 06/16/19. IMPRESSION: No acute cardiopulmonary abnormality is evident. Heart size is accentuated due to exam technique. No consolidation, pleural effusion or pneumothorax is evident. No acute osseous abnormality is noted. POS: [facility]
[2019-06-19 18:21] LABS: Bacteria/HPF None Seen HPF (None Seen); Bilirubin Negative (Negative); Blood, Urine Negative (Negative); Clarity Clear (Clear); Glucose, Urine (Dipstick) Greater than 1000 mg/dL (Negative); Leukocyte 75 Leu/uL (Negative); Nitrite Negative (Negative); Protein, Urine (Dipstick) Negative (Neg-Trace); RBC/HPF 0-3 HPF (0-3)
--- NOTE | 2019-06-19 18:21 | ULT ---
ULTRASOUND LEFT UPPER EXTREMITY VENOUS DOPPLER: 06/19/19 HISTORY: Pain and swelling. COMPARISON: None. FINDINGS: Real time henry scale, color Doppler and spectral analysis of the left upper extremity venous system w as performed. The internal jugular subclavian axillary vein as well as the basilic, brachial, cephali c veins are interrogated. In the distal left upper arm and at the antecubital fossa, there is occlusive thrombus within the cep halic vein. The remainder of the upper extremity veins are patent. The deep veins are patent. IMPRESSION: Superficial thrombosis of the cephalic vein near the antecubital fossa. Deep veins are patent. POS: HOME
[2019-06-19 18:26] LABS: Urine Culture Reflex No No
--- NOTE | 2019-06-19 20:27 | EKG ---
Test Reason : Blood Pressure : / mmHG Vent. Rate : 097 BPM Atrial Rate : 097 BPM P-R Int : 140 ms QRS Dur : 074 ms QT Int : 344 ms P-R-T Axes : 061 066 041 degrees QTc Int : 436 ms Normal sinus rhythm Normal ECG When compared with ECG of 19-JUN-2019 07:42, (Unconfirmed) No significant change was found Confirmed by NAKUL MALDONADO, . SLuis ([id number]) on 06/19/2019 8:26:39 PM Referred By: LUIS MANUEL Confirmed By:DR. Janis MOTA MD
[2019-06-19] MEDS: Fentanyl 100 MCG/2 ML VIAL SLOW IVP PRN (23:49)
--- NOTE | 2019-06-20 00:14 | PDOC.HOSPP ---
- Subjective Encounter Date: 06/19/19 Encounter Time: 08:00 Subjective: POD1 s/p catheter ablation. Feeling well in AM but in early PM developed right sided squeezing chest pain, febrile at 102.8Tm. EKG showing sinus tachy with no signs of ischemia or pericarditis. - Objective Vital Signs & Weight: Vital Signs (12 hours) Temp Pulse Resp BP BP Pulse Ox 06/19/19 19:42 100.2 F H 100 18 144/70 H 144/70 H 99 06/19/19 16:29 102.7 F H 06/19/19 14:54 100.9 F H 104 H 18 136/67 98 Weight Weight 166 lb 4.8 oz I&O: 06/18/19 06/19/19 06/20/19 06:59 06:59 06:59 Intake Total 2280 377 Output Total 150 350 Balance 2130 27 Result Diagrams: 06/19/19 17:08 06/18/19 04:46 Additional Labs: Accuchecks 06/19/19 06/19/19 06/19/19 20:39 16:56 10:46 POC Glucose 242 H 279 H 187 H 06/19/19 07:49 POC Glucose 257 H Hospitalist ROS - Review of Systems Constitutional: reports: fever, malaise. denies: chills, sweats, weakness Respiratory: reports: cough. denies: dry, shortness of breath, hemoptysis, SOB with excertion, pleuritic pain, sputum, wheezing, other Cardiovascular: reports: chest pain. denies: palpitations, orthopnea, paroxysmal noc. dyspnea, edema, light headedness, other Gastrointestinal: denies: nausea, vomiting, abdominal pain, diarrhea, constipation, melena, hematochezia, other Genitourinary: denies: dysuria, frequency, incontinence, hematuria, retention, other - Medication Medications: Active Medications Generic Name Dose Route Start Last Admin Trade Name Freq PRN Reason Stop Dose Admin Acetaminophen 650 mg 06/17/19 01:01 06/19/19 19:54 Tylenol PO 650 mg Q4H PRN Administration Headache/Fever/Mild Pain (1-3) Buspirone HCl 15 mg 06/17/19 09:00 06/19/19 19:54 Buspar PO 15 mg BID [facility] Administration Enoxaparin Sodium 40 mg 06/17/19 09:00 06/19/19 07:50 Lovenox SC 40 mg 0900 [facility] Administration Famotidine 20 mg 06/17/19 09:00 06/19/19 19:54 Pepcid PO 20 mg BID [facility] Administration Fentanyl 25 mcg 06/17/19 02:07 06/19/19 23:49 Sublimaze SLOW IVP 25 mcg Q2H PRN Administration Moderate Pain (4-6) Fluoxetine HCl 20 mg 06/17/19 09:00 06/19/19 07:48 Prozac PO 20 mg DAILY [facility] Administration Insulin Glargine 20 units/ 0.2 mls @ 0 mls/hr 06/18/19 18:39 06/19/19 21:23 Miscellaneous Medication SC 0.2 mls BID [facility] Administration As Directed Cefepime HCl 1 gm/ Sodium 100 mls @ 200 mls/hr 06/19/19 17:00 06/19/19 17:50 Chloride IVPB 100 mls 0500,1700 [facility] Administration Vancomycin HCl 1 gm/ Device 200 mls @ 200 mls/hr 06/19/19 18:00 06/19/19 17: 50 IVPB 200 mls 0200,1000,1800 [facility] Administration Sodium Chloride 1,000 mls @ 75 mls/hr 06/19/19 17:00 06/19/19 17:42 Normal Saline 0.9% IV 1,000 mls .[id number] [facility] Administration Insulin Human Lispro 10 units 06/17/19 12:00 06/19/19 17:43 Humalog SC 10 unit TID-WM [facility] Administration Insulin Human Lispro 0 units 06/17/19 09:45 06/19/19 17:46 Humalog SC 9 units .AGGRESSIVE SLIDING PRN Administration Aggressive Correctional Scale Lisinopril 10 mg 06/17/19 09:00 06/19/19 07:48 Zestril PO 10 mg DAILY [facility] Administration Nitroglycerin 0.4 mg 06/17/19 02:06 06/17/19 19:11 Nitrostat SL 1 tab Q5MIN PRN Administration Chest Pain Pantoprazole Sodium 40 mg 06/17/19 09:00 06/19/19 07:48 Protonix PO 40 mg DAILY [facility] Administration Sodium Chloride 10 ml 06/17/19 01:01 06/17/19 01:38 Flush - Normal Saline IVF 10 ml PRN PRN Administration Saline Flush - Exam General Appearance: NAD General - other findings: midly drowsy Heart: no murmur, no gallops, no rubs Heart - other findings: tachycardic Respiratory: CTAB, no wheezes, no rales, no ronchi, normal chest expansion, no tachypnea, normal percussion Gastrointestinal: soft, non-tender, non-distended, normal bowel sounds, no palpable masses, no hepatomegaly, no splenomegaly, no bruit Extremities - other findings: no signs of infection at catheter insertion sites ; LUE swelling, vein track Hosp A/P - Plan #Fever -a/w cough, may be CAP -POD 1 s/p ablation; may be infection related to access -infectious workup -started broad spectrum ABx #SVT -POD1 s/p catheter ablation; currently sinus tachy -stoppoed metoprolol as per EP #HTN -well controlled; continue lisinopril #T2DM -blood glucose well controlledy
[2019-06-20] MEDS ORDERED: Insulin Glargine 30 UNITS in Pre-Filled Syringe 1 EACH SC SCH ×2 (00:27→09:00)
[2019-06-20] MEDS ORDERED: HumaLOG 300 UNITS/3 ML VIAL SC SCH (00:30)
[2019-06-20] MEDS: Vancomycin 1 GM in Premix Bag 1 BAG IVPB SCH ×2 (01:46→09:11)
[2019-06-20 04:36] LABS: #Lymphocytes 1.2 thou/uL (1.20-3.40); #Monocytes 0.6 thou/uL (0.11-0.59); #Neutrophils 7.1 thou/uL (1.40-6.50); %Basophils 0.2 % (0.0-1.0); %Eosinophils 0.5 % (0.0-10.0); %Lymphocytes 13.6 % (21.0-51.0); %Monocytes 6.9 % (0.0-10.0); %Neutrophils 78.8 % (42.0-75.0); Hemoglobin 11.6 g/dL (12.0-16.0); Mean Corpuscular HGB CONC 34.3 g/dL (32.0-36.0); Mean Corpuscular Hemoglobin 29.2 pg (27.0-31.0); Mean Corpuscular Volume 85.1 fL (78.0-98.0); Mean Platelet Volume 8.7 fL (7.4-10.4); Platelet Count 128 thou/uL (130-400); RBC Distribution Width 11.3 % (11.5-14.5); Red Blood Cell (RBC) Count 3.98 mill/uL (4.20-5.40)
[2019-06-20 04:53] LABS: Anion Gap 12 mmol/L (10-20); BUN (Urea Nitrogen) 6 mg/dL (7.0-18.7); Calc. Creatinine Clearance 110 mL/min (70-130); Calcium 8.2 mg/dL (7.8-10.44); Carbon Dioxide 24 mmol/L (22-29); Chloride 104 mmol/L (98-107); Estimated GFR-MDRD Greater than 90; Glucose 215 mg/dL (70-105); Potassium 3.9 mmol/L (3.5-5.1); Sodium 136 mmol/L (136-145)
[2019-06-20] MEDS: Acetaminophen 325 MG TAB PO PRN ×2 (05:03→21:17)
[2019-06-20] MEDS: Cefepime 1 GM in Sodium Chloride 0.9% 100 ML IVPB SCH ×2 (05:04→17:28)
[2019-06-20] MEDS: Sodium Chloride 0.9% 1,000 ML IV SCH ×2 (05:44→17:30)
[2019-06-20] MEDS: HumaLOG 300 UNITS/3 ML VIAL SC PRN ×2 (06:24→17:42)
[2019-06-20] MEDS: busPIRone HCl 5 MG TAB PO SCH ×2 (08:53→21:19)
[2019-06-20] MEDS: Lisinopril 10 MG TAB PO SCH (08:54)
[2019-06-20] MEDS: FLUoxetine HCl 20 MG CAP PO SCH (08:54)
[2019-06-20] MEDS: Famotidine 20 MG TAB PO SCH ×2 (08:54→21:19)
[2019-06-20] MEDS: HumaLOG 300 UNITS/3 ML VIAL SC SCH ×3 (08:55→17:27)
[2019-06-20] MEDS: Insulin Glargine 30 UNITS in Pre-Filled Syringe 1 EACH SC SCH ×2 (08:55→21:20)
[2019-06-20] MEDS: Enoxaparin Sodium 40 MG/0.4 ML SYRINGE SC SCH (08:55)
[2019-06-20] MEDS ORDERED: PRE FILLED SC SCH (09:00)
[2019-06-20] MEDS ORDERED: INSULIN GLARGINE SC SCH (09:00)
[2019-06-20] MEDS: Ketorolac Tromethamine 30 MG/ML VIAL IVP PRN (09:02)
[2019-06-20] MEDS ORDERED: Regadenoson 0.4 MG/5 ML SYRINGE ONE (09:13)
--- NOTE | 2019-06-20 09:41 | RAD ---
PORTABLE CHEST: History: Chest pain Comparison: Prior day's exam. FINDINGS: Heart size appears upper limits of normal considering portable technique. There has been development of some retrocardiac parenchymal changes that could represent atelectasis versus infiltrate. Minimal subsegmental atelectasis seen in the right base. IMPRESSION: Retrocardiac parenchymal changes, probably atelectasis versus developing infiltrate. POS: [facility]
[2019-06-20] MEDS ORDERED: Iopamidol-370 76% 500 ML 1 ML ONE (11:19)
[2019-06-20] MEDS: Ketorolac Tromethamine 30 MG/ML VIAL IVP SCH ×2 (11:37→17:28)
--- NOTE | 2019-06-20 12:40 | CON ---
DATE OF CONSULTATION: 06/20/2019 HISTORY OF PRESENT ILLNESS: Ms. Durbin is a very pleasant 49-year-old patient with longstanding history of diabetes for over 20 years, came in with supraventricular tachycardia, underwent successful ablation, has been having chest pain. The patient's pain is continuous. It is in the left side of her chest, left shoulder, left lateral chest, lasts for hours at a time. There are no EKG changes. She has no typical angina. No chest pain, pressure, heaviness, or squeezing. The patient also did have a discomfort in the left arm and was found to have a thrombosed cephalic vein, but no deep venous thrombosis on the left. The patient has had diabetes for over 20 years. She does not use tobacco. There is no history of anginal chest pain. MEDICATIONS: At the time of admission, the patient was on; 1. Metformin. 2. Pantoprazole. 3. Lisinopril. 4. Metoprolol. 5. Victoza. 6. Aristada. REVIEW OF SYSTEMS: CONSTITUTIONAL: No significant weight gain or loss. VISION: No changes. HEARING: No changes. PULMONARY: No cough or wheezing. GASTROINTESTINAL: No nausea, vomiting, or diarrhea. SKIN: No rashes. NEUROLOGIC: No unilateral weakness or numbness. PSYCHIATRIC: No unusual depression or anxiety. The patient also had insulin sliding scale if needed. PHYSICAL EXAMINATION: GENERAL: This is a pleasant, thin, 49-year-old woman. VITAL SIGNS: Her blood pressure is 120/58, pulse 97 and regular. LUNGS: Clear. CARDIAC: Normal S1. Normal S2. ABDOMEN: Soft and nontender. EXTREMITIES: Warm and dry. No clubbing or cyanosis. There is no edema. Good peripheral pulses. DIAGNOSTIC DATA: Urinalysis, she did have some white blood cells with glucose. Blood cultures were negative. Chest x-ray, atelectasis versus developing infiltrate. The patient's EKG is normal including normal chest pain. Creatinine is 0.74. LDL cholesterol was 42. ASSESSMENT: Supraventricular tachycardia, status post ablation successfully. Atypical chest pain, probably musculoskeletal. Fever. Possible infiltrate, possibly atelectasis versus developing infiltrate per the chest x-ray report. PLAN: 1. We will give her some anti-inflammatories. 2. Stress test in view of the longstanding history of diabetes, although the symptoms do not sound anginal. Job ID: [id number]
--- NOTE | 2019-06-20 13:42 | PDOC.EP ---
- Subjective Date: 06/20/19 Time: 09:00 Interval History: This is a follow-up note for management of supraventricular tachycardia. 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 Yesterday afternoon she developed atypical chest pain along her left shoulder and chest. Twelve lead EKG was done did not suggest any acute coronary syndrome. She also has some left arm pain is found to have a thrombosed cephalic vein. Cardiology has been consulted and has ordered a stress test. she did experience some sinus tachycardia up to 120bpm overnight but had a fever with Tmax 102.7. her heart rates have return to the 90s as her temperatures come down. - Review of Systems Constitutional: reports: fever, malaise, weakness. denies: chills, sweats Respiratory: denies: cough, dry, hemoptysis, pleuritic pain, shortness of breath , SOB with excertion, sputum, wheezing Cardiology: reports: chest pain. denies: edema, heart racing, light headedness , palpitations, passing out Gastrointestinal: denies: abdominal pain, constipation, diarrhea Musculoskeletal: reports: neck pain, shoulder pain. denies: unstable gait, falls, foot pain - Objective Allergies/Adverse Reactions: Allergies Allergy/AdvReac Type Severity Reaction Status Date / Time codeine Allergy Verified 06/17/19 01:55 Current Medications Acetaminophen (Tylenol) 650 mg PO Q4H PRN PRN Reason: Headache/Fever/Mild Pain (1-3) Last Admin: 06/20/19 05:03 Dose: 650 mg Buspirone HCl (Buspar) 15 mg PO BID [facility] Last Admin: 06/20/19 08:53 Dose: 15 mg Dextrose/Water (Dextrose 50%) 25 gm SLOW IVP PRN PRN PRN Reason: Hypoglycemia Enoxaparin Sodium (Lovenox) 40 mg SC 0900 [facility] Last Admin: 06/20/19 08:55 Dose: 40 mg Famotidine (Pepcid) 20 mg PO BID [facility] Last Admin: 06/20/19 08:54 Dose: 20 mg Fentanyl (Sublimaze) 25 mcg SLOW IVP Q2H PRN PRN Reason: Moderate Pain (4-6) Last Admin: 06/19/19 23:49 Dose: 25 mcg Fluoxetine HCl (Prozac) 20 mg PO DAILY [facility] Last Admin: 06/20/19 08:54 Dose: 20 mg Glucagon (Glucagon) 1 mg IM PRN PRN PRN Reason: Hypoglycemia Hydralazine HCl (Apresoline) 10 mg SLOW IVP Q4H PRN PRN Reason: SBP > 180 and HR < 70 Dextrose/Water (D5w) 1,000 mls @ 0 mls/hr IV .Q0M PRN PRN Reason: Hypoglycemia Cefepime HCl 1 gm/ Sodium (Chloride) 100 mls @ 200 mls/hr IVPB 0500,1700 [facility] Last Admin: 06/20/19 05:04 Dose: 100 mls Vancomycin HCl 1 gm/ Device 200 mls @ 200 mls/hr IVPB 0200,1000,1800 [facility] Last Admin: 06/20/19 09:11 Dose: 200 mls Sodium Chloride (Normal Saline 0.9%) 1,000 mls @ 75 mls/hr IV .[id number] [facility] Last Admin: 06/20/19 05:44 Dose: Not Given Insulin Glargine 30 units/ (Miscellaneous Medication) 0.3 mls @ 0 mls/hr SC BID [facility] Last Admin: 06/20/19 08:55 Dose: 0.3 mls Insulin Human Lispro (Humalog) 0 units SC .AGGRESSIVE SLIDING PRN PRN Reason: Aggressive Correctional Scale Last Admin: 06/20/19 06:24 Dose: 6 units Insulin Human Lispro (Humalog) 15 units SC TID-WM [facility] Last Admin: 06/20/19 08:55 Dose: 15 unit Insulin Human Regular (Humulin R) 0 units SC .BEDTIME SLIDING SC PRN PRN Reason: Bedtime Correctional Scale Insulin Human Regular (Humulin R) 0 units SC .MILD SLIDING SCALE PRN PRN Reason: Mild Correctional Scale Ketorolac Tromethamine (Toradol) 30 mg IVP Q6H PRN PRN Reason: Pain Stop: 06/25/19 08:43 Last Admin: 06/20/19 09:02 Dose: 30 mg Ketorolac Tromethamine (Toradol) 30 mg IVP Q6HR [facility] Stop: 06/25/19 12:01 Last Admin: 06/20/19 11:37 Dose: 30 mg Lisinopril (Zestril) 10 mg PO DAILY [facility] Last Admin: 06/20/19 08:54 Dose: 10 mg Miscellaneous Medication (Pharmacy To Dose) 1 each IVPB PRN PRN PRN Reason: Pharmacy to dose Nitroglycerin (Nitrostat) 0.4 mg SL Q5MIN PRN PRN Reason: Chest Pain Last Admin: 06/17/19 19:11 Dose: 1 tab Pantoprazole Sodium (Protonix) 40 mg PO DAILY [facility] Last Admin: 06/20/19 08:54 Dose: 40 mg Senna/Docusate Sodium (Senokot S) 2 tab PO BIDPRN PRN PRN Reason: Constipation Sodium Chloride (Flush - Normal Saline) 10 ml IVF PRN PRN PRN Reason: Saline Flush Last Admin: 06/17/19 01:38 Dose: 10 ml Temazepam (Restoril) 15 mg PO HSPRN PRN PRN Reason: Insomnia Vital Signs & Weight: Vital Signs Temp Pulse Resp BP BP Pulse Ox 06/20/19 11:36 98.5 F 90 16 131/61 98 06/20/19 07:15 98.9 F 97 16 120/58 L 98 06/20/19 04:00 102.2 F H 110 H 17 134/65 98 06/20/19 02:56 102.2 F H 110 H 17 134/65 98 Weight 171 lb 9.6 oz I/O: I/O 06/19/19 06/20/19 06/21/19 06:59 06:59 06:59 Intake Total 377 1200 Output Total 350 1150 Balance 27 50 - Physical Exam General: alert & oriented x3, appears well, no apparent distress, speech clear, affect appropriate HEENT: mucus membranes moist, normocephaly Neck: supple neck, midline trachea, no JVD/HJR, no masses, no bruit, no lymphadenopathy, no thromegaly Cardiology: no murmur, regular rhythm, PMI nondisplaced, tachycardia Lungs: clear to auscultation, normal breath sounds, normal exam, no wheeze, rales, rhonchi, no wheezes, no rales, no rhonchi Neurology: cranial nerve 2-12 intact, grossly intact, sensory function intact Extremities: dry, strong pulses, warm Skin: groin sites stable - Labs Result Diagrams: 06/20/19 04:28 06/20/19 04:27 - EKG Interpretation EKG Method: Telemetry EKG shows: Sinus rhythm, Sinus tachycardia - Assessment/Plan Assessment/Plan: 1. SVT - s/p EPS with ablation for AVNRT 2. Chest pain - unknown etiology - cardiology consulted 3. Sinus tachycardia - in the setting of fever up to 102.7 - could also be mild rebound tachycardia with stopping betablockers. - no in 80-90s - If ST persists could restart metoprolol. I have ordered a limited echo to rule out pericardial effusion post ablation, which is unlikely after SVT ablation. Rhythm stable. Sinus tach over HS was an appropriate response to her fever.
--- NOTE | 2019-06-20 14:45 | NM ---
EXAM: NM Cardiac Stress W EF WF PROVIDED CLINICAL HISTORY: Chest pain COMPARISON: 11/15/2007 FINDINGS: No significant reversible defect is seen between the stress and resting acquisitions. Rotating planar images demonstrate breast attenuation. Gated images show normal ventricular wall motion and wall thickening. The calculated left ventricular ejection fraction is 67%. The left ventricular ejection f raction on prior study was 50%. IMPRESSION: 1. Normal myocardial perfusion study without evidence of a reversible defect seen to suggest ischemia . 2. Normal LVEF of 67%.
[2019-06-20 17:20] LABS: Vancomycin, Trough 8.9 ug/mL
[2019-06-20] MEDS: Vancomycin 1.5 GRAM/300 ML BAG 1.5 GM in Premix Bag 1 BAG IVPB SCH (18:34)
--- NOTE | 2019-06-20 20:56 | CT ---
CTA OF THE THORAX UTILIZING IV CONTRAST, PE PROTOCOL AND 3D REFORMATTED IMAGIN06/20/19 INDICATION: History of blood clot in the left arm and ablation with concern for pulmonary embolism. There is also pleuritic chest pain. COMPARISON: Prior CTA of the chest dated 12/13/17. FINDINGS: More linear opacities are seen within the lower lingula and left lower lobe suspicious for changes of subsegmental volume loss. No definite air space consolidation is evident. There is some patchy area s of ground glass opacity seen within the right lower lobe on image 55 of series 3. No pleural effusi on or pneumothorax is evident. No definite central or segmental pulmonary embolus is evident. There i s a very small pericardial effusion. No definite enlarged lymph nodes are evident. The visualized upp er abdomen demonstrates cholecystectomy clips. No definite acute abnormality is noted. IMPRESSION: 1. No central or segmental pulmonary embolus grossly evident. 2. Linear air space opacity seen within the left lung base most suspicious for subsegmental atel ectasis. No moris consolidation is demonstrated. 3. There is patchy area of ground glass opacity within the right lower lobe which may reflect a focus of pneumonitis. 4. Small pericardial effusion. POS: BH
[2019-06-20] MEDS: Fentanyl 100 MCG/2 ML VIAL SLOW IVP PRN (21:17)
--- NOTE | 2019-06-20 22:08 | PDOC.HOSPP ---
- Subjective Encounter Date: 06/20/19 Encounter Time: 09:00 Subjective: no overnight events. This morning, feels better, chest pain resolved, and fever subsided. Respiratory culture growing rhinovirus but such high fevers atypical for rhinovirus infection - Objective Vital Signs & Weight: Vital Signs (12 hours) Temp Pulse Resp BP BP Pulse Ox 06/20/19 19:15 99.0 F 103 H 20 132/62 97 06/20/19 15:56 98.8 F 101 H 21 H 157/74 H 98 06/20/19 11:36 98.5 F 90 16 131/61 98 Weight Weight 171 lb 9.6 oz I&O: 06/19/19 06/20/19 06/21/19 06:59 06:59 06:59 Intake Total 377 1200 1850 Output Total 350 1150 1325 Balance 27 50 525 Result Diagrams: 06/20/19 04:28 06/20/19 04:27 Additional Labs: Accuchecks 06/20/19 06/20/19 06/20/19 20:40 16:49 14:44 POC Glucose 187 H 310 H 209 H 06/20/19 06/20/19 11:03 05:55 POC Glucose 280 H 247 H Hospitalist ROS - Review of Systems Constitutional: denies: fever, chills, sweats, weakness, malaise, other Respiratory: denies: cough, dry, shortness of breath, hemoptysis, SOB with excertion, pleuritic pain, sputum, wheezing, other Cardiovascular: denies: chest pain, palpitations, orthopnea, paroxysmal noc. dyspnea, edema, light headedness, other Gastrointestinal: denies: nausea, vomiting, abdominal pain, diarrhea, constipation, melena, hematochezia, other - Medication Medications: Active Medications Generic Name Dose Route Start Last Admin Trade Name Freq PRN Reason Stop Dose Admin Acetaminophen 650 mg 06/17/19 01:01 06/20/19 21:17 Tylenol PO 650 mg Q4H PRN Administration Headache/Fever/Mild Pain (1-3) Buspirone HCl 15 mg 06/17/19 09:00 06/20/19 21:19 Buspar PO 15 mg BID ALISA Administration Enoxaparin Sodium 40 mg 06/17/19 09:00 06/20/19 08:55 Lovenox SC 40 mg 0900 ALISA Administration Famotidine 20 mg 06/17/19 09:00 06/20/19 21:19 Pepcid PO 20 mg BID ALISA Administration Fentanyl 25 mcg 06/17/19 02:07 06/20/19 21:17 Sublimaze SLOW IVP 25 mcg Q2H PRN Administration Moderate Pain (4-6) Fluoxetine HCl 20 mg 06/17/19 09:00 06/20/19 08:54 Prozac PO 20 mg DAILY ALISA Administration Cefepime HCl 1 gm/ Sodium 100 mls @ 200 mls/hr 06/19/19 17:00 06/20/19 17:28 Chloride IVPB 100 mls 0500,1700 ALISA Administration Sodium Chloride 1,000 mls @ 75 mls/hr 06/19/19 17:00 06/20/19 17:30 Normal Saline 0.9% IV 1,000 mls .[id number] ALISA Administration Insulin Glargine 30 units/ 0.3 mls @ 0 mls/hr 06/20/19 09:00 06/20/19 21:20 Miscellaneous Medication SC 0.3 mls BID ALISA Administration Vancomycin HCl 1.5 gm/ Device 300 mls @ 200 mls/hr 06/20/19 18:00 06/20/19 18 :34 IVPB 300 mls 0200,1000,1800 ALISA Administration Insulin Human Lispro 0 units 06/17/19 09:45 06/20/19 17:42 Humalog SC 11 units .AGGRESSIVE SLIDING PRN Administration Aggressive Correctional Scale Insulin Human Lispro 15 units 06/20/19 08:00 06/20/19 17:27 Humalog SC 15 unit TID-WM ALISA Administration Ketorolac Tromethamine 30 mg 06/20/19 08:42 06/20/19 09:02 Toradol IVP 06/25/19 08:43 30 mg Q6H PRN Administration Pain Ketorolac Tromethamine 30 mg 06/20/19 12:00 06/20/19 17:28 Toradol IVP 06/25/19 12:01 30 mg Q6HR ALISA Administration Lisinopril 10 mg 06/17/19 09:00 06/20/19 08:54 Zestril PO 10 mg DAILY ALISA Administration Nitroglycerin 0.4 mg 06/17/19 02:06 06/17/19 19:11 Nitrostat SL 1 tab Q5MIN PRN Administration Chest Pain Pantoprazole Sodium 40 mg 06/17/19 09:00 06/20/19 08:54 Protonix PO 40 mg DAILY ALISA Administration Sodium Chloride 10 ml 06/17/19 01:01 06/17/19 01:38 Flush - Normal Saline IVF 10 ml PRN PRN Administration Saline Flush - Exam General Appearance: NAD, awake alert Heart: no murmur, no gallops, no rubs Heart - other findings: sinus tachy Respiratory: CTAB, no wheezes, no rales, no ronchi Gastrointestinal: soft, non-tender, non-distended, normal bowel sounds Extremities: no edema Extremities - other findings: left upper cephalic venous tracking with tenderness Psychiatric: normal affect, normal behavior, A&O x 3 Hosp A/P - Plan #Fever -rhinovirus positive but such high fevers atypical for rhinovirus; pending additional infectious workup; continue vanc and cefepime -superficial cephalic vein venous thrombophlebitis - doesn't require anticoagulation; -infectious workup -started broad spectrum ABx #right sided chest pain -atypical; EKG showing no signs of acute ischemia -EP consulted cardiology for further evaluation #SVT -POD2 s/p catheter ablation; currently sinus tachy -stopped metoprolol as per EP #HTN -well controlled; continue lisinopril #T2DM -blood glucose poorly controlled; may be related to infection; insulin regimen adjusted
[2019-06-21] MEDS: Ketorolac Tromethamine 30 MG/ML VIAL IVP SCH ×3 (00:04→06:06)
[2019-06-21] MEDS: Vancomycin 1.5 GRAM/300 ML BAG 1.5 GM in Premix Bag 1 BAG IVPB SCH ×3 (02:28→18:09)
--- NOTE | 2019-06-21 05:18 | PDOC.HOSPP ---
- Subjective Encounter Date: 06/21/19 Encounter Time: 07:00 Subjective: no overnight events. Blood culture growing MRSA, clinically improving on vancomycin. Has no complaints. - Objective Vital Signs & Weight: Vital Signs (12 hours) Temp Pulse Resp BP Pulse Ox 06/21/19 03:09 97.6 F 80 14 108/59 L 99 06/20/19 19:15 99.0 F 103 H 20 132/62 97 Weight Weight 171 lb 9.6 oz I&O: 06/19/19 06/20/19 06/21/19 06:59 06:59 06:59 Intake Total 377 1200 1850 Output Total 350 1150 1325 Balance 27 50 525 Result Diagrams: 06/20/19 04:28 06/20/19 04:27 Additional Labs: Accuchecks 06/20/19 06/20/19 06/20/19 20:40 16:49 14:44 POC Glucose 187 H 310 H 209 H 06/20/19 06/20/19 11:03 05:55 POC Glucose 280 H 247 H Hospitalist ROS - Review of Systems Constitutional: denies: fever, chills, sweats, weakness, malaise, other Respiratory: denies: cough, dry, shortness of breath, hemoptysis, SOB with excertion, pleuritic pain, sputum, wheezing, other Cardiovascular: denies: chest pain, palpitations, orthopnea, paroxysmal noc. dyspnea, edema, light headedness, other Gastrointestinal: denies: nausea, vomiting, abdominal pain, diarrhea, constipation, melena, hematochezia, other Genitourinary: denies: dysuria, frequency, incontinence, hematuria, retention, other - Medication Medications: Active Medications Generic Name Dose Route Start Last Admin Trade Name Freq PRN Reason Stop Dose Admin Acetaminophen 650 mg 06/17/19 01:01 06/20/19 21:17 Tylenol PO 650 mg Q4H PRN Administration Headache/Fever/Mild Pain (1-3) Buspirone HCl 15 mg 06/17/19 09:00 06/20/19 21:19 Buspar PO 15 mg BID ALISA Administration Enoxaparin Sodium 40 mg 06/17/19 09:00 06/20/19 08:55 Lovenox SC 40 mg 0900 ALISA Administration Famotidine 20 mg 06/17/19 09:00 06/20/19 21:19 Pepcid PO 20 mg BID ALISA Administration Fentanyl 25 mcg 06/17/19 02:07 06/20/19 21:17 Sublimaze SLOW IVP 25 mcg Q2H PRN Administration Moderate Pain (4-6) Fluoxetine HCl 20 mg 06/17/19 09:00 06/20/19 08:54 Prozac PO 20 mg DAILY ALISA Administration Cefepime HCl 1 gm/ Sodium 100 mls @ 200 mls/hr 06/19/19 17:00 06/20/19 17:28 Chloride IVPB 100 mls 0500,1700 ALISA Administration Sodium Chloride 1,000 mls @ 75 mls/hr 06/19/19 17:00 06/20/19 17:30 Normal Saline 0.9% IV 1,000 mls .[id number] ALISA Administration Vancomycin HCl 1.5 gm/ Device 300 mls @ 200 mls/hr 06/20/19 18:00 06/21/19 02 :28 IVPB 300 mls 0200,1000,1800 ALISA Administration Insulin Human Lispro 0 units 06/17/19 09:45 06/20/19 17:42 Humalog SC 11 units .AGGRESSIVE SLIDING PRN Administration Aggressive Correctional Scale Insulin Human Lispro 15 units 06/20/19 08:00 06/20/19 17:27 Humalog SC 15 unit TID-WM ALISA Administration Ketorolac Tromethamine 30 mg 06/20/19 08:42 06/20/19 09:02 Toradol IVP 06/25/19 08:43 30 mg Q6H PRN Administration Pain Ketorolac Tromethamine 30 mg 06/20/19 12:00 06/21/19 00:04 Toradol IVP 06/21/19 08:00 30 mg Q6HR ALISA Administration Lisinopril 10 mg 06/17/19 09:00 06/20/19 08:54 Zestril PO 10 mg DAILY ALISA Administration Nitroglycerin 0.4 mg 06/17/19 02:06 06/17/19 19:11 Nitrostat SL 1 tab Q5MIN PRN Administration Chest Pain Pantoprazole Sodium 40 mg 06/17/19 09:00 06/20/19 08:54 Protonix PO 40 mg DAILY ALISA Administration Sodium Chloride 10 ml 06/17/19 01:01 06/17/19 01:38 Flush - Normal Saline IVF 10 ml PRN PRN Administration Saline Flush - Exam General Appearance: NAD, awake alert Heart: no murmur, no gallops, no rubs, normal peripheral pulses Respiratory: CTAB, no wheezes, no rales, no ronchi, normal chest expansion Gastrointestinal: soft, non-tender, non-distended, normal bowel sounds Extremities: no edema Psychiatric: normal affect, normal behavior, A&O x 3 Hosp A/P - Plan #MRSA bacteremia -likely due to vascular access, possibly suppurative thrombophlebitis -No new murmur on exam; echo s/p ablation showing no valvular growth; If persistently bacteremic will repeat echo; EDITA may be indicated if negative -continue vanc, stop cefepime -repeat blood cultures #left cephalic thrombosis/thrombophlebitis -on toradol, warm compressions; no additional extension appreciated, no anticoagulation indicated #right sided chest pain (resolved) -atypical; EKG showing no signs of acute ischemia -EP consulted cardiology for further evaluation #SVT -POD3 s/p catheter ablation; currently sinus -stopped metoprolol as per EP #HTN -well controlled; continue lisinopril #T2DM -blood glucose poorly controlled; may be related to infection; insulin regimen adjusted
[2019-06-21] MEDS: Cefepime 1 GM in Sodium Chloride 0.9% 100 ML IVPB SCH (05:31)
[2019-06-21] MEDS: Insulin Regular 300 UNITS/3 ML VIAL SC PRN (06:01)
[2019-06-21] MEDS: FLUoxetine HCl 20 MG CAP PO SCH (08:14)
[2019-06-21] MEDS: Famotidine 20 MG TAB PO SCH ×2 (08:14→20:43)
[2019-06-21] MEDS: Enoxaparin Sodium 40 MG/0.4 ML SYRINGE SC SCH ×2 (08:14→20:44)
[2019-06-21] MEDS: busPIRone HCl 5 MG TAB PO SCH ×2 (08:14→20:43)
[2019-06-21] MEDS: Lisinopril 10 MG TAB PO SCH (08:14)
[2019-06-21] MEDS: HumaLOG 300 UNITS/3 ML VIAL SC SCH ×3 (08:16→17:57)
[2019-06-21] MEDS: Insulin Glargine 40 UNITS in Pre-Filled Syringe 1 EACH SC SCH ×2 (08:42→20:44)
[2019-06-21] MEDS: Sodium Chloride 0.9% 1,000 ML IV SCH (08:50)
--- NOTE | 2019-06-21 10:55 | PRG ---
DATE OF SERVICE: 06/21/2019 SUBJECTIVE: Ms. Durbin is feeling better today. Her left arm is scale reclamation tender and swollen, hot. She has no chest pain. OBJECTIVE: VITAL SIGNS: Blood pressure 124/57 and pulse 84 and regular. LUNGS: Clear. CARDIAC: Normal S1. Normal S2. ASSESSMENT: 1. Pleuritic chest pain, resolved. 2. Septic thrombophlebitis with positive blood cultures for Staph. PLAN: 1. She is on vancomycin. 2. Stop the Toradol. 3. She has infiltrates on the chest x-ray (could this be pneumonia). 4. We will increase enoxaparin to twice a day while she is here. She does have clot in the left cephalic vein. 5. May need Infectious Disease consultation. Job ID: [id number]
[2019-06-21] MEDS: HumaLOG 300 UNITS/3 ML VIAL SC PRN (11:57)
--- NOTE | 2019-06-21 16:57 | PDOC.EP ---
- Subjective Date: 06/21/19 Time: 08:00 Interval History: This is a follow-up note for management of supraventricular tachycardia. 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 Yesterday afternoon she developed atypical chest pain along her left shoulder and chest. Twelve lead EKG was done did not suggest any acute coronary syndrome. She also has some left arm pain is found to have a thrombosed cephalic vein. Cardiology has been consulted and has ordered a stress test. she did experience some sinus tachycardia up to 120bpm overnight but had a fever with Tmax 102.7. her heart rates have stabilized in the 80s. - Review of Systems Cardiology: denies: chest pain, edema, heart racing, light headedness, orthopnea , paroxysmal noc. dyspnea, palpitations, passing out, pleuritic pain, pressure, swelling Gastrointestinal: denies: abdominal pain, constipation, diarrhea, hematochezia, melena, nausea, vomitting - Objective Allergies/Adverse Reactions: Allergies Allergy/AdvReac Type Severity Reaction Status Date / Time codeine Allergy Verified 06/17/19 01:55 Current Medications Acetaminophen (Tylenol) 650 mg PO Q4H PRN PRN Reason: Headache/Fever/Mild Pain (1-3) Last Admin: 06/20/19 21:17 Dose: 650 mg Buspirone HCl (Buspar) 15 mg PO BID [facility] Last Admin: 06/21/19 08:14 Dose: 15 mg Dextrose/Water (Dextrose 50%) 25 gm SLOW IVP PRN PRN PRN Reason: Hypoglycemia Enoxaparin Sodium (Lovenox) 40 mg SC 0900,2100 [facility] Famotidine (Pepcid) 20 mg PO BID [facility] Last Admin: 06/21/19 08:14 Dose: 20 mg Fentanyl (Sublimaze) 25 mcg SLOW IVP Q2H PRN PRN Reason: Moderate Pain (4-6) Last Admin: 06/20/19 21:17 Dose: 25 mcg Fluoxetine HCl (Prozac) 20 mg PO DAILY [facility] Last Admin: 06/21/19 08:14 Dose: 20 mg Glucagon (Glucagon) 1 mg IM PRN PRN PRN Reason: Hypoglycemia Hydralazine HCl (Apresoline) 10 mg SLOW IVP Q4H PRN PRN Reason: SBP > 180 and HR < 70 Dextrose/Water (D5w) 1,000 mls @ 0 mls/hr IV .Q0M PRN PRN Reason: Hypoglycemia Sodium Chloride (Normal Saline 0.9%) 1,000 mls @ 75 mls/hr IV .[id number] [facility] Last Admin: 06/21/19 08:50 Dose: 1,000 mls Vancomycin HCl 1.5 gm/ Device 300 mls @ 200 mls/hr IVPB 0200,1000,1800 [facility] Last Admin: 06/21/19 09:30 Dose: 300 mls Insulin Glargine 40 units/ (Miscellaneous Medication) 0.4 mls @ 0 mls/hr SC BID [facility] Last Admin: 06/21/19 08:42 Dose: 0.4 mls Insulin Human Lispro (Humalog) 0 units SC .AGGRESSIVE SLIDING PRN PRN Reason: Aggressive Correctional Scale Last Admin: 06/21/19 11:57 Dose: 9 units Insulin Human Lispro (Humalog) 15 units SC TID-WM [facility] Last Admin: 06/21/19 11:57 Dose: 15 unit Insulin Human Regular (Humulin R) 0 units SC .BEDTIME SLIDING SC PRN PRN Reason: Bedtime Correctional Scale Insulin Human Regular (Humulin R) 0 units SC .MILD SLIDING SCALE PRN PRN Reason: Mild Correctional Scale Last Admin: 06/21/19 06:01 Dose: 3 unit Ketorolac Tromethamine (Toradol) 30 mg IVP Q6H PRN PRN Reason: Pain Stop: 06/25/19 08:43 Last Admin: 06/20/19 09:02 Dose: 30 mg Lisinopril (Zestril) 10 mg PO DAILY [facility] Last Admin: 06/21/19 08:14 Dose: 10 mg Miscellaneous Medication (Pharmacy To Dose) 1 each IVPB PRN PRN PRN Reason: Pharmacy to dose Nitroglycerin (Nitrostat) 0.4 mg SL Q5MIN PRN PRN Reason: Chest Pain Last Admin: 06/17/19 19:11 Dose: 1 tab Pantoprazole Sodium (Protonix) 40 mg PO DAILY [facility] Last Admin: 06/21/19 08:14 Dose: 40 mg Senna/Docusate Sodium (Senokot S) 2 tab PO BIDPRN PRN PRN Reason: Constipation Sodium Chloride (Flush - Normal Saline) 10 ml IVF PRN PRN PRN Reason: Saline Flush Last Admin: 06/17/19 01:38 Dose: 10 ml Temazepam (Restoril) 15 mg PO HSPRN PRN PRN Reason: Insomnia Vital Signs & Weight: Vital Signs Temp Pulse Resp BP Pulse Ox 06/21/19 15:59 98.7 F 89 18 136/66 98 06/21/19 11:20 97.8 F 83 18 131/67 100 06/21/19 07:50 97.8 F 85 18 124/57 L 98 Weight 172 lb I/O: I/O 06/20/19 06/21/19 06/22/19 06:59 06:59 06:59 Intake Total 1200 1850 Output Total 1150 1325 Balance 50 525 - Physical Exam General: alert & oriented x3, appears well, no apparent distress, speech clear, affect appropriate HEENT: mucus membranes moist, normocephaly, mucus membranes dry Neck: supple neck, midline trachea, no lymphadenopathy Cardiology: regular rate and rhythm, PMI nondisplaced Lungs: clear to auscultation, normal breath sounds, no wheeze, rales, rhonchi Neurology: cranial nerve 2-12 intact, sensory function intact - Labs Result Diagrams: 06/20/19 04:28 06/20/19 04:27 - EKG Interpretation EKG Method: Telemetry EKG shows: Sinus rhythm - Assessment/Plan Assessment/Plan: 1. SVT - s/p EPS with ablation for AVNRT 2. Chest pain - unknown etiology - cardiology consulted 3. Sinus tachycardia - in the setting of fever up to 102.7 - could also be mild rebound tachycardia with stopping betablockers. - now in 80s 4. Bacteremia - with LUE phlebitis - as per hospitalist EP signing off. Rhythm and echo stable. EF 60-65% with small effusion that was present prior to ablation
[2019-06-21 17:50] LABS: Vancomycin, Trough 14.5 ug/mL
[2019-06-21] MEDS: Ketorolac Tromethamine 30 MG/ML VIAL IVP PRN (18:01)
[2019-06-21] MEDS: Vancomycin HCl 1.75 GM in Sodium Chloride 0.9% 500 ML IVPB SCH (18:39)
[2019-06-21] MEDS: Ibuprofen 200 MG TAB PO PRN (21:38)
[2019-06-21] MEDS ORDERED: Fluticasone Propionate Nasal Spray 16 gm Bottle NASAL PRN (22:48)
[2019-06-22] MEDS: Sodium Chloride 0.9% 1,000 ML IV SCH (02:47)
[2019-06-22] MEDS: Vancomycin HCl 1.75 GM in Sodium Chloride 0.9% 500 ML IVPB SCH ×3 (02:48→17:00)
[2019-06-22 05:03] LABS: #Eosinphils 0.3 thou/uL (0.0-0.7); #Lymphocytes 1.7 thou/uL (1.20-3.40); #Monocytes 0.7 thou/uL (0.11-0.59); #Neutrophils 3.9 thou/uL (1.40-6.50); %Basophils 0.6 % (0.0-1.0); %Eosinophils 4.2 % (0.0-10.0); %Lymphocytes 26.3 % (21.0-51.0); %Monocytes 10.1 % (0.0-10.0); %Neutrophils 58.8 % (42.0-75.0); Hemoglobin 9.2 g/dL (12.0-16.0); Mean Corpuscular HGB CONC 34.5 g/dL (32.0-36.0); Mean Corpuscular Volume 86.9 fL (78.0-98.0); Mean Platelet Volume 9.9 fL (7.4-10.4); Platelet Count 139 thou/uL (130-400); RBC Distribution Width 11.6 % (11.5-14.5); Red Blood Cell (RBC) Count 3.05 mill/uL (4.20-5.40); White Blood Cell (WBC) Count 6.6 thou/uL (4.8-10.8)
[2019-06-22] MEDS: HumaLOG 300 UNITS/3 ML VIAL SC PRN ×3 (06:06→16:52)
[2019-06-22] MEDS: Ibuprofen 200 MG TAB PO PRN (06:06)
[2019-06-22] MEDS: Enoxaparin Sodium 40 MG/0.4 ML SYRINGE SC SCH ×2 (08:23→20:10)
[2019-06-22] MEDS: busPIRone HCl 5 MG TAB PO SCH ×2 (08:24→20:10)
[2019-06-22] MEDS: FLUoxetine HCl 20 MG CAP PO SCH (08:24)
[2019-06-22] MEDS: Famotidine 20 MG TAB PO SCH ×2 (08:24→20:09)
[2019-06-22] MEDS: Lisinopril 10 MG TAB PO SCH (08:24)
--- NOTE | 2019-06-22 08:29 | PRG ---
DATE OF SERVICE: 06/22/2019 SUBJECTIVE: Ms. Durbin feels better today. She has no complaints. OBJECTIVE: VITAL SIGNS: Her blood pressure 137/72 and pulse 80. LUNGS: Clear. CARDIAC: Normal S1 and normal S2. ABDOMEN: Soft and nontender. EXTREMITIES: No edema. 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 LABORATORY DATA: The hemoglobin is down to 9.2. The blood cultures /2 was positive for methicillin-resistant Staph aureus. ASSESSMENT: 1. Probably septic thrombophlebitis from an IV site with pleuritic pain later with infiltrates, suspect it was truly bacteremic. 2. Status post successful supraventricular tachycardia ablation. PLAN: I would recommend an elective Infectious Disease consultation to recommend antibiotic protocol, especially in view of the diabetes. My partners will be around this weekend if needed. Job ID: [id number]
[2019-06-22] MEDS: HumaLOG 300 UNITS/3 ML VIAL SC SCH ×2 (09:49→13:09)
[2019-06-22] MEDS: Insulin Glargine 40 UNITS in Pre-Filled Syringe 1 EACH SC SCH ×2 (10:11→20:12)
[2019-06-22] MEDS: Acetaminophen 325 MG TAB PO PRN ×2 (11:00→15:07)
--- NOTE | 2019-06-22 16:56 | PQF ---
DATE: 06-22-19 ATTN: DR. MALATHI PAIGE Please exercise your independent, professional judgment in responding to the clarification form. Clinical indicators are provided on the bottom of this form for your review Please check appropriate box(es): [ ] Sepsis present on admission [ ] Sepsis NOT present on admission [ ] Unable to determine Due to: Due to: [ ] Device (please specify) [ ] SIRS due to non-infectious process (please specify etiology) [ ] with organ dysfunction [ ] without organ dysfunction [ x ] Localized infection without sepsis [ ] Other diagnosis [ ] Unable to determine For continuity of documentation, please document condition throughout progress notes and discharge summary. Thank You. CLINICAL INDICATORS - SIGNS / SYMPTOMS / LABS / RESULTS AND LOCATION IN MR: post ablation, on 06/18, pt developed T: 102.7, HR: 104, Neutrophils 79.9; blood cx 1 of 2: MRSA. NN 06/17: Pt c/o L AC hurting, IV leaky, IV dc'd w/tip intact. PN 06/21 (Marco): L upper cephalic vein thrombophlebitis; MRSA bacteremia, likely d/t vascular access; 06/20 PN (Mary): Septic thrombophlebitis. Started on Vancomycin & Cefepime RISK FACTORS / RESULTS AND LOCATION IN MR: post ablation, on 06/18, pt developed T: 102.7, HR: 104, Neutrophils 79.9; blood cx 1 of 2: MRSA. NN 06/17: Pt c/o L AC hurting, IV leaky, IV dc'd w/tip intact. TREATMENTS / RESULTS AND LOCATION IN MR: 06/18, pt developed T: 102.7, HR: 104, Neutrophils 79.9; blood cx 1 of 2: MRSA MAR: 06-21-19: VANCOMYCIN IV. 06-19-19: IVF NS (This form is maintained as a part of the permanent medical record) 2014 [employer], [employer]. All Rights Reserved GEOVANNI [email or web address]
--- NOTE | 2019-06-22 17:02 | PQF ---
DATE: 06-22-19 ATTN: DR. MALATHI PAIGE Please exercise your independent, professional judgment in responding to the clarification form. Clinical indicators are provided on the bottom of this form for your review Please check appropriate box(s) to clarify if the following diagnosis has been ruled in or ruled out: PNEUMONIA [ ] Ruled in diagnosis [ ] Continue to treat [ ] Resolved [ x ] Ruled out diagnosis [ ] Other diagnosis [ ] Unable to determine In addition, please specify: Present on Admission (POA): [ ] Yes [ ] No [ ] Unable to determine For continuity of documentation, please document condition throughout progress notes and discharge summary. Thank You. CLINICAL INDICATORS - SIGNS / SYMPTOMS / LABS / RESULTS AND LOCATION IN MR: PN 06/18 (Marco): fever, a/w cough, may be CAP; PN 06/20 (Mary): she has infiltrates on CXR (could this be pneumonia) TEMP: 06-19-19: 100.8, 100.9, 102.7 06-20-19: 102.2, 102.2 RISK FACTORS / RESULTS AND LOCATION IN MR: PN 06/18 (Marco): fever, a/w cough, may be CAP; PN 06/20 (Mary): she has infiltrates on CXR (could this be pneumonia) TREATMENTS / RESULTS AND LOCATION IN MR: MAR: 06-21-19: VANCOMYCIN IV, 06-19-19: IVF NS (This form is maintained as a part of the permanent medical record) 2014 [employer], [employer]. All Rights Reserved GEOVANNI [email or web address]
[2019-06-22 17:42] LABS: Vancomycin, Trough 32.5 ug/mL
--- NOTE | 2019-06-22 19:23 | PDOC.EVN ---
Event Note - Event Note Event Note: disregard critical vanc trough value. Was taken while vanc being administered
[2019-06-22] MEDS ORDERED: Ketorolac Tromethamine 10 MG TAB PO SCH (19:30)
--- NOTE | 2019-06-22 20:33 | PDOC.HOSPP ---
- Subjective Encounter Date: 06/22/19 Encounter Time: 09:00 Subjective: no overnight events. This morning, feels well and has no complaints. - Objective Vital Signs & Weight: Vital Signs (12 hours) Temp Pulse Resp BP BP Pulse Ox 06/22/19 15:06 98.0 F 86 16 150/70 H 98 06/22/19 11:39 97.7 F 75 20 145/68 H 100 Weight Weight 175 lb 9.6 oz I&O: 06/21/19 06/22/19 06/23/19 06:59 06:59 06:59 Intake Total 1850 2640 1720 Output Total 1325 1750 Balance 906 097 3382 Result Diagrams: 06/22/19 04:12 06/20/19 04:27 Additional Labs: Accuchecks 06/22/19 06/22/19 06/22/19 16:53 10:50 05:34 POC Glucose 195 H 204 H 216 H 06/21/19 20:46 POC Glucose 181 H Hospitalist ROS - Review of Systems Constitutional: denies: fever, chills, sweats, weakness, malaise, other Respiratory: denies: cough, dry, shortness of breath, hemoptysis, SOB with excertion, pleuritic pain, sputum, wheezing, other Cardiovascular: denies: chest pain, palpitations, orthopnea, paroxysmal noc. dyspnea, edema, light headedness, other Gastrointestinal: denies: nausea, vomiting, abdominal pain, diarrhea, constipation, melena, hematochezia, other Genitourinary: denies: dysuria, frequency, incontinence, hematuria, retention, other - Medication Medications: Active Medications Generic Name Dose Route Start Last Admin Trade Name Freq PRN Reason Stop Dose Admin Acetaminophen 650 mg 06/17/19 01:01 06/22/19 15:07 Tylenol PO 650 mg Q4H PRN Administration Headache/Fever/Mild Pain (1-3) Buspirone HCl 15 mg 06/17/19 09:00 06/22/19 20:10 Buspar PO 15 mg BID ALISA Administration Enoxaparin Sodium 40 mg 06/21/19 21:00 06/22/19 20:10 Lovenox SC 40 mg 0900,2100 ALISA Administration Famotidine 20 mg 06/17/19 09:00 05/15/20 20:09 Pepcid PO 20 mg BID ALISA Administration Fentanyl 25 mcg 06/17/19 02:07 06/20/19 21:17 Sublimaze SLOW IVP 25 mcg Q2H PRN Administration Moderate Pain (4-6) Fluoxetine HCl 20 mg 06/17/19 09:00 06/22/19 08:24 Prozac PO 20 mg DAILY ALISA Administration Fluticasone Propionate 0 gm 06/21/19 22:48 06/22/19 02:48 Flonase Nasal Muddy NASAL 1 spr DAILY PRN Administration Allergies Insulin Glargine 40 units/ 0.4 mls @ 0 mls/hr 06/21/19 09:00 06/22/19 20:12 Miscellaneous Medication SC 0.4 mls BID ALISA Administration As Directed Vancomycin HCl 1.75 gm/ Sodium 500 mls @ 250 mls/hr 06/21/19 18:00 06/22/19 17:00 Chloride IVPB 500 mls 0200,1000,1800 ALISA Administration Insulin Human Lispro 0 units 06/17/19 09:45 06/22/19 16:52 Humalog SC 3 units .AGGRESSIVE SLIDING PRN Administration Aggressive Correctional Scale Insulin Human Regular 0 units 06/17/19 01:04 06/21/19 06:01 Humulin R SC 3 unit .MILD SLIDING SCALE PRN Administration Mild Correctional Scale Ketorolac Tromethamine 10 mg 06/22/19 19:30 06/22/19 20:09 Toradol PO 06/22/19 21:30 10 mg NOW ALISA Administration Lisinopril 10 mg 06/17/19 09:00 06/22/19 08:24 Zestril PO 10 mg DAILY ALISA Administration Nitroglycerin 0.4 mg 06/17/19 02:06 06/17/19 19:11 Nitrostat SL 1 tab Q5MIN PRN Administration Chest Pain Pantoprazole Sodium 40 mg 06/17/19 09:00 06/22/19 08:24 Protonix PO 40 mg DAILY ALISA Administration Sodium Chloride 10 ml 06/17/19 01:01 06/17/19 01:38 Flush - Normal Saline IVF 10 ml PRN PRN Administration Saline Flush - Exam General Appearance: NAD, awake alert Heart: RRR, no murmur, no gallops, no rubs, normal peripheral pulses Respiratory: CTAB, no wheezes, no rales, no ronchi, normal chest expansion, no tachypnea, normal percussion Gastrointestinal: soft, non-tender, non-distended, normal bowel sounds Extremities: no edema Psychiatric: normal affect, normal behavior, A&O x 3 Hosp A/P - Plan #MRSA bacteremia -likely due to suppurative thrombophlebitis -No new murmur on exam; echo s/p ablation showing no valvular growth; If persistently bacteremic will repeat echo; EDITA may be indicated if negative -continue vanc #left cephalic thrombosis/thrombophlebitis -on NSAID PRN pain, warm compressions; no additional extension appreciated, anticoagulation per cardiology -ID consulted #right sided chest pain (resolved) -atypical; EKG showing no signs of acute ischemia -EP consulted cardiology for further evaluation #SVT -POD4 s/p catheter ablation; currently sinus #HTN -well controlled; continue lisinopril #T2DM -blood glucose poorly controlled; may be related to infection; insulin regimen adjusted
--- NOTE | 2019-06-22 23:40 | CON ---
DATE OF CONSULTATION: 06/22/2019 REASON FOR CONSULTATION: Bacteremia. HISTORY OF PRESENT ILLNESS: A 49-year-old with history of type 2 diabetes, hyperlipidemia, hypertension, and bipolar disorder, admitted with new onset of chest pain on June 15. This was associated with palpitations. She was found to be in SVT and was given adenosine, but she remained tachycardic. Did not have any headaches, fever, chills. No neurological symptoms. No diarrhea or abdominal pain. No respiratory symptoms. Initial findings included a normal temperature, pulse 103, O2 saturation 100. Initial exam with fairly unremarkable findings except for tachycardia. Other initial results including a WBC of 8.4, hemoglobin 13.5, platelets 200, normal differential. Sodium 139, creatinine 0.76, AST 142, ALT 138, albumin 3.7. Urinalysis with 4 to 6 wbc's. Consultation with Cardiology and Electrophysiology proceeded and EP study was recommended. On the , she had a temperature of 102.7. Blood cultures were submitted. An antecubital peripheral IV access site was noted to be inflamed with tenderness and induration. This is from a peripheral IV access that had been for 2 days and it had been started in the ambulance en route to the hospital on the . 1/2 sets of blood cultures yielded methicillin-resistant Staphylococcus aureus, this is at 48 hours. The only positive set thus far, two further sets have been submitted on the and there are no growth to date. The patient has not had any fever since the when she was 102 at 4:00 p.m. She is feeling okay now. No headaches. No shortness of breath. No back pain. She has tenderness in the left sternoclavicular joint, which is new. She has no abdominal pain. No genitourinary symptoms. Voiding without difficulty. No other joint symptoms. PAST MEDICAL HISTORY: Schizoaffective disorder, bipolar disorder, type 2 diabetes, hypertension, and hyperlipidemia. PAST SURGICAL HISTORY: Cholecystectomy, hysterectomy, tubal ligation. SOCIAL HISTORY: Never smoker and does not drink. No drug use. She is on disability right now. Lives in the area. FAMILY HISTORY: Noncontributory. ALLERGIES: CODEINE WITH HIVES. MEDICATIONS: At the moment; 1. Tylenol. 2. BuSpar. 3. Lovenox. 4. Pepcid. 5. Sublimaze. 6. Prozac. 7. Flonase. 8. Insulin. 9. Zestril. 10. Protonix. 11. Senokot. 12. Temazepam. 13. Vancomycin. PHYSICAL EXAMINATION: VITAL SIGNS: Temperature 98, blood pressure 150/70, pulse 86, respirations 16, and O2 saturation 98. SKIN: Shows the left antecubital fossa with a small area of abscess, it was not drained yet and there is a tubular indurated structure right above it probably the vein. The superficial vein which is thrombosed associated with the infectious process. The patient has a peripheral IV access in the opposite extremity. There is no lymphadenopathy. HEENT: Ocular movements conjugate. Oral cavity normal. NECK: Supple. LUNGS: Symmetric with clear breath sounds. HEART: S1 and S2, regular rate. No S3 or S4. ABDOMEN: Soft, not distended or tender. No ascites. No bladder distention. MUSCULOSKELETAL: No other joint inflammatory process. NEUROLOGIC: Nonfocal. Oriented, alert. Good recollection. LABORATORY DATA: The latest labs; white cell count 6.6, hemoglobin 9.2, platelets 139, and neutrophil percentage is back down to 58, and the creatinine is 0.72. IMAGING: The patient had a CT chest angio on the and it showed patchy area of ground-glass opacity in the right upper lobe. Echocardiogram with EF 60-65%, grade 2/3 diastolic dysfunction. ASSESSMENT: Type 2 diabetes, schizoaffective disorder, and supraventricular tachycardia, now with septic thrombophlebitis in the left antecubital fossa vein, this was developed after the vein access had been removed. It was removed within the threshold recommended, but she had been inserted in the ambulance. She has now tenderness in the left sternoclavicular joint and that will continue to have to be monitored to see if it progresses. The Staphylococcus aureus has a propensity to spread to those joints in the sternoclavicular region. If that does not progress and the second set of blood cultures remains negative, then one could envision a short course of IV therapy with vancomycin for 2 weeks. An alternate approach would be IV conversion to oral, for example vancomycin transition to oral linezolid to complete a total of 2 weeks of therapy. The organism is susceptible to clindamycin as well, but resistant to quinolones. I have discussed with the patient due to the propensity of the methicillin-resistant Staphylococcus aureus, has to establish a distant sites of dissemination and particularly the spine and other joints as well as lungs. Depending on the progress in the next few days, we will may have to extend the duration of therapy. Job ID: [id number]
[2019-06-23 01:29] LABS: Vancomycin, Trough 19.4 ug/mL
[2019-06-23] MEDS: Vancomycin HCl 1.75 GM in Sodium Chloride 0.9% 500 ML IVPB SCH (02:04)
[2019-06-23] MEDS: Vancomycin 1.5 GRAM/300 ML BAG 1.5 GM in Premix Bag 1 BAG IVPB SCH ×3 (02:06→17:18)
[2019-06-23] MEDS: Acetaminophen 325 MG TAB PO PRN ×3 (04:13→14:01)
[2019-06-23 04:48] LABS: #Basophils 0.1 thou/uL (0.0-0.2); #Eosinphils 0.3 thou/uL (0.0-0.7); #Lymphocytes 1.3 thou/uL (1.20-3.40); #Monocytes 0.7 thou/uL (0.11-0.59); #Neutrophils 4.2 thou/uL (1.40-6.50); %Basophils 1.1 % (0.0-1.0); %Eosinophils 4.7 % (0.0-10.0); %Lymphocytes 20.3 % (21.0-51.0); %Monocytes 10.6 % (0.0-10.0); %Neutrophils 63.4 % (42.0-75.0); Hemoglobin 9.5 g/dL (12.0-16.0); Mean Corpuscular HGB CONC 32.9 g/dL (32.0-36.0); Mean Corpuscular Hemoglobin 28.5 pg (27.0-31.0); Mean Corpuscular Volume 86.6 fL (78.0-98.0); Mean Platelet Volume 9.2 fL (7.4-10.4); Platelet Count 180 thou/uL (130-400); Red Blood Cell (RBC) Count 3.34 mill/uL (4.20-5.40); White Blood Cell (WBC) Count 6.6 thou/uL (4.8-10.8)
[2019-06-23 05:11] LABS: Anion Gap 12 mmol/L (10-20); BUN (Urea Nitrogen) 10 mg/dL (7.0-18.7); Calc. Creatinine Clearance 134 mL/min (70-130); Calcium 8.3 mg/dL (7.8-10.44); Carbon Dioxide 24 mmol/L (22-29); Chloride 108 mmol/L (98-107); Estimated GFR-MDRD Greater than 90; Glucose 141 mg/dL (70-105); Sodium 140 mmol/L (136-145)
[2019-06-23] MEDS: busPIRone HCl 5 MG TAB PO SCH ×2 (07:55→20:23)
[2019-06-23] MEDS: FLUoxetine HCl 20 MG CAP PO SCH (07:56)
[2019-06-23] MEDS: Lisinopril 10 MG TAB PO SCH (07:56)
[2019-06-23] MEDS: Famotidine 20 MG TAB PO SCH ×2 (07:56→20:23)
[2019-06-23] MEDS: Enoxaparin Sodium 40 MG/0.4 ML SYRINGE SC SCH ×2 (07:57→20:23)
[2019-06-23] MEDS: Insulin Glargine 40 UNITS in Pre-Filled Syringe 1 EACH SC SCH ×2 (08:27→20:23)
[2019-06-23] MEDS: HumaLOG 300 UNITS/3 ML VIAL SC PRN ×2 (11:58→17:18)
--- NOTE | 2019-06-23 12:46 | EKG ---
Test Reason : Blood Pressure : / mmHG Vent. Rate : 108 BPM Atrial Rate : 108 BPM P-R Int : 158 ms QRS Dur : 076 ms QT Int : 344 ms P-R-T Axes : 046 035 022 degrees QTc Int : 460 ms Sinus tachycardia Cannot rule out Anterior infarct , age undetermined Abnormal ECG Confirmed by JOSE COOK M.D. ([id number]), copy editor JENNY VELASCO ([id number]) on 06/23/2019 12:46:02 PM Referred By: Confirmed By:JOSE COOK M.D.
[2019-06-23] MEDS: Fentanyl 100 MCG/2 ML VIAL SLOW IVP PRN ×4 (14:55→23:07)
--- NOTE | 2019-06-23 21:09 | PDOC.HOSPP ---
- Subjective Encounter Date: 06/23/19 Encounter Time: 10:00 Subjective: no overnight events. this morning, feeling well and has no complaints - Objective Vital Signs & Weight: Vital Signs (12 hours) Temp Pulse Resp BP BP Pulse Ox 06/23/19 19:21 98.3 F 91 16 137/64 97 06/23/19 16:00 98.0 F 87 16 148/70 H 98 06/23/19 12:00 100 06/23/19 11:57 80 16 145/70 H 100 Weight Weight 176 lb I&O: 06/22/19 06/23/19 06/24/19 06:59 06:59 06:59 Intake Total 2640 2320 1560 Output Total 1750 450 Balance 890 1870 1560 Result Diagrams: 06/23/19 04:31 06/23/19 04:31 Additional Labs: Accuchecks 06/23/19 06/23/19 06/23/19 20:16 16:48 10:57 POC Glucose 194 H 227 H 200 H 06/23/19 05:49 POC Glucose 174 H Hospitalist ROS - Review of Systems Constitutional: denies: fever, chills, sweats, weakness, malaise, other Respiratory: denies: cough, dry, shortness of breath, hemoptysis, SOB with excertion, pleuritic pain, sputum, wheezing, other Cardiovascular: denies: chest pain, palpitations, orthopnea, paroxysmal noc. dyspnea, edema, light headedness, other Gastrointestinal: denies: nausea, vomiting, abdominal pain, diarrhea, constipation, melena, hematochezia, other Genitourinary: denies: dysuria, frequency, incontinence, hematuria, retention, other - Medication Medications: Active Medications Generic Name Dose Route Start Last Admin Trade Name Freq PRN Reason Stop Dose Admin Acetaminophen 650 mg 06/17/19 01:01 06/23/19 14:01 Tylenol PO 650 mg Q4H PRN Administration Headache/Fever/Mild Pain (1-3) Buspirone HCl 15 mg 06/17/19 09:00 06/23/19 20:23 Buspar PO 15 mg BID ALISA Administration Enoxaparin Sodium 40 mg 06/21/19 21:00 06/23/19 20:23 Lovenox SC 40 mg 0900,2100 ALISA Administration Famotidine 20 mg 06/17/19 09:00 06/23/19 20:23 Pepcid PO 20 mg BID ALISA Administration Fentanyl 25 mcg 06/17/19 02:07 06/23/19 20:49 Sublimaze SLOW IVP 25 mcg Q2H PRN Administration Moderate Pain (4-6) Fluoxetine HCl 20 mg 06/17/19 09:00 06/23/19 07:56 Prozac PO 20 mg DAILY ALISA Administration Fluticasone Propionate 0 gm 06/21/19 22:48 06/22/19 02:48 Flonase Nasal [place] NASAL 1 spr DAILY PRN Administration Allergies Insulin Glargine 40 units/ 0.4 mls @ 0 mls/hr 06/21/19 09:00 06/23/19 20:23 Miscellaneous Medication SC 0.4 mls BID ALISA Administration As Directed Vancomycin HCl 1.5 gm/ Device 300 mls @ 200 mls/hr 06/23/19 02:00 06/23/19 17 :18 IVPB 300 mls 0200,1000,1800 ALISA Administration Insulin Human Lispro 0 units 06/17/19 09:45 06/23/19 17:18 Humalog SC 6 units .AGGRESSIVE SLIDING PRN Administration Aggressive Correctional Scale Insulin Human Regular 0 units 06/17/19 01:04 06/21/19 06:01 Humulin R SC 3 unit .MILD SLIDING SCALE PRN Administration Mild Correctional Scale Lisinopril 10 mg 06/17/19 09:00 06/23/19 07:56 Zestril PO 10 mg DAILY ALISA Administration Nitroglycerin 0.4 mg 06/17/19 02:06 06/17/19 19:11 Nitrostat SL 1 tab Q5MIN PRN Administration Chest Pain Pantoprazole Sodium 40 mg 06/17/19 09:00 06/23/19 07:56 Protonix PO 40 mg DAILY ALISA Administration Sodium Chloride 10 ml 06/17/19 01:01 06/17/19 01:38 Flush - Normal Saline IVF 10 ml PRN PRN Administration Saline Flush - Exam General Appearance: NAD, awake alert Heart: RRR, no murmur, no gallops, no rubs, normal peripheral pulses Respiratory: CTAB, no wheezes, no rales, no ronchi, normal chest expansion, no tachypnea, normal percussion Gastrointestinal: soft, non-tender, non-distended, normal bowel sounds, no palpable masses, no hepatomegaly, no splenomegaly, no bruit Extremities: no edema Extremities - other findings: left arm - no further extension of thrombophlebitis Psychiatric: normal affect, normal behavior, A&O x 3 Hosp A/P - Plan #MRSA bacteremia -likely due to suppurative thrombophlebitis -No new murmur on exam; echo s/p ablation showing no valvular growth; -BCx s/p vanc -ve -continue vanc #left cephalic thrombosis/thrombophlebitis -on NSAID PRN pain, warm compressions; no additional extension appreciated, anticoagulation per cardiology -per ID will likely require antibiotics for two weeks #right sided chest pain (resolved) -atypical; EKG showing no signs of acute ischemia -EP consulted cardiology for further evaluation #SVT -POD5 s/p catheter ablation; currently sinus #HTN -well controlled; continue lisinopril #T2DM -blood glucose poorly controlled; may be related to infection; insulin regimen adjusted
[2019-06-24 02:17] LABS: Vancomycin, Trough 14.6 ug/mL
[2019-06-24] MEDS: Vancomycin 1.5 GRAM/300 ML BAG 1.5 GM in Premix Bag 1 BAG IVPB SCH ×3 (02:33→17:51)
[2019-06-24] MEDS: Fentanyl 100 MCG/2 ML VIAL SLOW IVP PRN ×2 (02:34→11:34)
[2019-06-24 04:16] LABS: #Eosinphils 0.3 thou/uL (0.0-0.7); #Lymphocytes 1.8 thou/uL (1.20-3.40); #Monocytes 0.8 thou/uL (0.11-0.59); #Neutrophils 4.5 thou/uL (1.40-6.50); %Basophils 0.3 % (0.0-1.0); %Eosinophils 4.2 % (0.0-10.0); %Lymphocytes 24.2 % (21.0-51.0); %Monocytes 10.5 % (0.0-10.0); %Neutrophils 60.9 % (42.0-75.0); Hemoglobin 9.6 g/dL (12.0-16.0); Mean Corpuscular HGB CONC 32.7 g/dL (32.0-36.0); Mean Corpuscular Hemoglobin 28.3 pg (27.0-31.0); Mean Corpuscular Volume 86.7 fL (78.0-98.0); Platelet Count 196 thou/uL (130-400); RBC Distribution Width 12.4 % (11.5-14.5); Red Blood Cell (RBC) Count 3.38 mill/uL (4.20-5.40); White Blood Cell (WBC) Count 7.3 thou/uL (4.8-10.8)
[2019-06-24 04:38] LABS: Anion Gap 12 mmol/L (10-20); BUN (Urea Nitrogen) 7 mg/dL (7.0-18.7); Calc. Creatinine Clearance 143 mL/min (70-130); Calcium 8.3 mg/dL (7.8-10.44); Carbon Dioxide 22 mmol/L (22-29); Chloride 107 mmol/L (98-107); Estimated GFR-MDRD Greater than 90; Glucose 151 mg/dL (70-105); Potassium 3.7 mmol/L (3.5-5.1); Sodium 137 mmol/L (136-145)
[2019-06-24] MEDS: Insulin Glargine 40 UNITS in Pre-Filled Syringe 1 EACH SC SCH ×2 (09:07→21:08)
[2019-06-24] MEDS: Enoxaparin Sodium 40 MG/0.4 ML SYRINGE SC SCH ×2 (09:07→21:05)
[2019-06-24] MEDS: busPIRone HCl 5 MG TAB PO SCH ×2 (09:08→21:06)
[2019-06-24] MEDS: Famotidine 20 MG TAB PO SCH ×2 (09:08→21:07)
[2019-06-24] MEDS: Lisinopril 10 MG TAB PO SCH (09:09)
[2019-06-24] MEDS: FLUoxetine HCl 20 MG CAP PO SCH (09:09)
[2019-06-24] MEDS: Acetaminophen 325 MG TAB PO PRN (11:37)
[2019-06-24] MEDS: HumaLOG 300 UNITS/3 ML VIAL SC PRN ×2 (11:42→17:52)
--- NOTE | 2019-06-24 13:27 | PDOC.HOSPP ---
- Subjective Encounter Date: 06/24/19 Encounter Time: 07:00 Subjective: no overnight events. No further extension of left cephalic thrombus. complains of right posterior subscapular pain for the past few days. otherwise no complaints. - Objective Vital Signs & Weight: Vital Signs (12 hours) Temp Pulse Resp BP BP Pulse Ox 06/24/19 12:01 97.7 F 78 18 158/72 H 97 06/24/19 07:45 95 06/24/19 07:44 97.8 F 85 14 146/72 H 95 06/24/19 03:16 98.6 F 85 18 133/65 96 Weight Weight 179 lb 3.2 oz I&O: 06/23/19 06/24/19 06/25/19 06:59 06:59 06:59 Intake Total 2320 2340 Output Total 450 500 Balance 1870 1840 Result Diagrams: 06/24/19 04:05 06/24/19 04:05 Additional Labs: Accuchecks 06/24/19 06/24/19 06/23/19 11:17 05:54 20:16 POC Glucose 184 H 121 H 194 H 06/23/19 16:48 POC Glucose 227 H Hospitalist ROS - Review of Systems Constitutional: denies: fever, chills, sweats, weakness, malaise, other Respiratory: denies: cough, dry, shortness of breath, hemoptysis, SOB with excertion, pleuritic pain, sputum, wheezing, other Cardiovascular: denies: chest pain, palpitations, orthopnea, paroxysmal noc. dyspnea, edema, light headedness, other Gastrointestinal: denies: nausea, vomiting, abdominal pain, diarrhea, constipation, melena, hematochezia, other - Medication Medications: Active Medications Generic Name Dose Route Start Last Admin Trade Name Freq PRN Reason Stop Dose Admin Acetaminophen 650 mg 06/17/19 01:01 06/24/19 11:37 Tylenol PO 650 mg Q4H PRN Administration Headache/Fever/Mild Pain (1-3) Buspirone HCl 15 mg 06/17/19 09:00 06/24/19 09:08 Buspar PO 15 mg BID ALISA Administration Enoxaparin Sodium 40 mg 06/21/19 21:00 06/24/19 09:07 Lovenox SC 40 mg 0900,2100 ALISA Administration Famotidine 20 mg 06/17/19 09:00 06/24/19 09:08 Pepcid PO 20 mg BID ALISA Administration Fentanyl 25 mcg 06/17/19 02:07 06/24/19 11:34 Sublimaze SLOW IVP 25 mcg Q2H PRN Administration Moderate Pain (4-6) Fluoxetine HCl 20 mg 06/17/19 09:00 06/24/19 09:09 Prozac PO 20 mg DAILY ALISA Administration Fluticasone Propionate 0 gm 06/21/19 22:48 06/22/19 02:48 Flonase Nasal [place] NASAL 1 spr DAILY PRN Administration Allergies Insulin Glargine 40 units/ 0.4 mls @ 0 mls/hr 06/21/19 09:00 06/24/19 09:07 Miscellaneous Medication SC 0.4 mls BID ALISA Administration As Directed Vancomycin HCl 1.5 gm/ Device 300 mls @ 200 mls/hr 06/23/19 02:00 06/24/19 09 :43 IVPB 300 mls 0200,1000,1800 ALISA Administration Insulin Human Lispro 0 units 06/17/19 09:45 06/24/19 11:42 Humalog SC 3 units .AGGRESSIVE SLIDING PRN Administration Aggressive Correctional Scale Insulin Human Regular 0 units 06/17/19 01:04 06/21/19 06:01 Humulin R SC 3 unit .MILD SLIDING SCALE PRN Administration Mild Correctional Scale Lisinopril 10 mg 06/17/19 09:00 06/24/19 09:09 Zestril PO 10 mg DAILY ALISA Administration Nitroglycerin 0.4 mg 06/17/19 02:06 06/17/19 19:11 Nitrostat SL 1 tab Q5MIN PRN Administration Chest Pain Pantoprazole Sodium 40 mg 06/17/19 09:00 06/24/19 09:09 Protonix PO 40 mg DAILY ALISA Administration Sodium Chloride 10 ml 06/17/19 01:01 06/17/19 01:38 Flush - Normal Saline IVF 10 ml PRN PRN Administration Saline Flush - Exam General Appearance: NAD, awake alert Neck: no JVD Heart: RRR, no murmur, no gallops, no rubs, normal peripheral pulses Respiratory: CTAB, no wheezes, no rales, no ronchi, normal chest expansion, no tachypnea, normal percussion Gastrointestinal: soft, non-tender, non-distended, normal bowel sounds, no palpable masses, no hepatomegaly, no splenomegaly, no bruit Extremities: no edema Hosp A/P - Plan #MRSA bacteremia -likely due to suppurative thrombophlebitis -No new murmur on exam; echo s/p ablation showing no valvular growth; -BCx s/p vanc -ve #left cephalic thrombosis/thrombophlebitis -on NSAID PRN pain, warm compressions; no additional extension appreciated, anticoagulation per cardiology -per ID will likely require antibiotics for two weeks; will complete 7 days of vanc tomorrow, then will transition to oral ABx based on evidence of no recurrence with such regimen #right sided chest pain (resolved) -atypical; EKG showing no signs of acute ischemia #SVT -POD6 s/p catheter ablation; sinus thereafter #HTN -well controlled; continue lisinopril #T2DM -blood glucose well controlled;
[2019-06-24] MEDS ORDERED: Aripiprazole 15 MG TAB PO SCH (18:45)
[2019-06-24] MEDS: HYDROcodone/Acetaminophen 10/325 mg Tablet PO PRN (21:06)
[2019-06-25] MEDS: Vancomycin 1.5 GRAM/300 ML BAG 1.5 GM in Premix Bag 1 BAG IVPB SCH ×2 (02:58→10:37)
[2019-06-25] MEDS: HYDROcodone/Acetaminophen 10/325 mg Tablet PO PRN (03:08)
[2019-06-25] MEDS: Insulin Regular 300 UNITS/3 ML VIAL SC PRN (07:22)
[2019-06-25] MEDS: Insulin Glargine 40 UNITS in Pre-Filled Syringe 1 EACH SC SCH (08:44)
[2019-06-25] MEDS: busPIRone HCl 5 MG TAB PO SCH (08:46)
[2019-06-25] MEDS: Famotidine 20 MG TAB PO SCH (08:47)
[2019-06-25] MEDS: FLUoxetine HCl 20 MG CAP PO SCH (08:47)
[2019-06-25] MEDS: Lisinopril 10 MG TAB PO SCH (08:47)
[2019-06-25] MEDS: Enoxaparin Sodium 40 MG/0.4 ML SYRINGE SC SCH (08:51)
[2019-06-25] MEDS ORDERED: Aripiprazole 15 MG TAB PO SCH (09:00)
[2019-06-25] MEDS: Acetaminophen 325 MG TAB PO PRN (10:38)
[2019-06-25] MEDS: HumaLOG 300 UNITS/3 ML VIAL SC PRN (12:12)
[2019-06-25 15:00] VITALS: TEMP 98.1
--- NOTE | 2019-06-25 15:07 | PRG ---
DATE OF SERVICE: 06/25/2019 SUBJECTIVE: Ms. Durbin is doing dramatically better. Her arms feel much better. She is much less swollen. She is not having any pain. OBJECTIVE: VITAL SIGNS: Blood pressure 137/70, pulse 80. LUNGS: Clear. CARDIAC: Normal S1, normal S2. ABDOMEN: Soft, nontender. EXTREMITIES: The left arm looks much better. There is no pus. The puncture site looks clean and dry. There is only minimal swelling now. ASSESSMENT: 1. Septic thrombophlebitis with clot in the cephalic vein on ultrasound. 2. Positive blood culture for MRSA. 3. Status post successful ablation. 4. Pleuritic chest pain, resolved, of unclear etiology. There is no evidence of any pulmonary embolism based on the imaging. I discussed the situation with the patient as well as Dr. Wilkerson and Dr. Lara. There is not a clear indication for anticoagulation. However, we have given her Lovenox 40 mg twice a day here. We have not proven any deep venous thrombosis. There is not a strict indication for anticoagulation. Certainly, not long-term anticoagulation but as precaution I have decided to give her Eliquis 5 mg twice a day for 2 weeks. She will not take any aspirin or ibuprofen. We will have her give her lab slip for a blood count in a week. Job ID: [id number]
[2019-06-25 15:26] VITALS: BP 134/74
--- NOTE | 2019-06-26 03:24 | DIS ---
DATE OF ADMISSION: 06/19/2019 DATE OF DISCHARGE: 06/25/2019 HOSPITAL COURSE: Ms. Durbin is a 49-year-old female with a medical history of type 2 diabetes and hypertension, who presented with chest pain and palpitations. She was diagnosed with supraventricular tachycardia and underwent ablation after which she remained in normal sinus rhythm. During her inpatient stay, the patient developed left superficial cephalic thrombophlebitis resulting in MRSA bacteremia. The patient was started on vancomycin and responded promptly. Infectious Disease was consulted and recommended to continue to observe the patient and eventually discharged on Bactrim and rifampin for a period of 3 weeks with followup with Infectious Disease after two weeks. The patient was discharged home hemodynamically stable with no complaints. PHYSICAL EXAMINATION: VITAL SIGNS: Blood pressure 137/71, pulse 78, respiratory rate 20, 98% on room air, and 97.9. GENERAL: No apparent distress. CARDIAC: Regular rate and rhythm. 2/6 decrescendo systolic murmur most audible in the left second intercostal. No gallops. LUNGS: Clear to auscultation bilaterally. No wheezing, rales, or rhonchi. ABDOMEN: Nondistended, nontender. Normal bowel sounds. EXTREMITIES: Left cubital fossa induration diameter about 3 to 4 cm that was unchanged several days prior to discharge. No tenderness or erythema. PSYCHIATRIC: Proper mood, proper affect. Alert and oriented x3. DISCHARGE MEDICATIONS: New medications: 1. Bactrim double strength one tablet b.i.d. for 21 days. 2. Rifampin 600 mg daily for 21 days. Rest of medications were unchanged. Job ID: [id number]
== END 2019-06-25 15:16 | disposition home or self-care (01) | DRG 274 ==
LOC: ERS 21:10 → 2NO 06-17 00:13 → OBSVTOIN 06-19 23:30
PROVIDERS: ADMIT Internal Medicine; ATTEND Internal Medicine
PROC: 4A023FZ Measurement of Cardiac Rhythm, Percutaneous Approach (ICD-10-PCS; principal; 2019-06-18)
PROC: 02583ZZ Destruction of Conduction Mechanism, Percutaneous Approach (ICD-10-PCS; 2019-06-18)
PROC: 4A0234Z Measurement of Cardiac Electrical Activity, Percutaneous Approach (ICD-10-PCS; 2019-06-18)
PROC: 02K83ZZ Map Conduction Mechanism, Percutaneous Approach (ICD-10-PCS; 2019-06-18)
DX: I47.1 Supraventricular tachycardia (principal); R78.81 Bacteremia; I82.612 Acute embolism and thrombosis of superficial veins of left upper extremity; T80.1XXA Vascular complications following infusion, transfusion and therapeutic injection, initial encounter; B95.62 Methicillin resistant Staphylococcus aureus infection as the cause of diseases classified elsewhere; I10 Essential (primary) hypertension; E78.5 Hyperlipidemia, unspecified; E11.9 Type 2 diabetes mellitus without complications; F41.9 Anxiety disorder, unspecified; F31.9 Bipolar disorder, unspecified; G25.81 Restless legs syndrome; E83.42 Hypomagnesemia; R07.89 Other chest pain; Z88.5 Allergy status to narcotic agent; Z79.84 Long term (current) use of oral hypoglycemic drugs; Z79.899 Other long term (current) drug therapy; Z79.4 Long term (current) use of insulin; Z98.51 Tubal ligation status; Z90.710 Acquired absence of both cervix and uterus; Z90.49 Acquired absence of other specified parts of digestive tract; Y83.8 Other surgical procedures as the cause of abnormal reaction of the patient, or of later complication, without mention of misadventure at the time of the procedure
CPT/HCPCS: 36005; 36415; 36416; 71045; 71275; 75820; 76942; 78452; 80048; 80053; 80061; 80202; 80306; 81001; 82550; 83690; 83735; 84443; 84484; 85025; 85379; 87040; 87077; 87149; 87186; 87633; 93005; 93010; 93017; 93306; A9500; C1730; C1769; J0692; J1644; J1650; J1815; J1885; J2250; J2704; J2785; J3010; J3370; J3475; J3490; J7030; Q9967

== ENCOUNTER 2019-12-26 21:19 | Observation (INO) | payer MEDICARE, MEDICAID ==
[~2019-12-26 21:19] MED LIST: Iopamidol-370 76% 500 ML 1 ML ONE
[2019-12-26 21:47] LABS: #Basophils 0.1 thou/uL (0.0-0.2); #Eosinphils 0.3 thou/uL (0.0-0.7); #Lymphocytes 3.1 thou/uL (1.20-3.40); #Monocytes 0.7 thou/uL (0.11-0.59); #Neutrophils 5.5 thou/uL (1.40-6.50); %Basophils 1.1 % (0.0-1.0); %Eosinophils 3.5 % (0.0-10.0); %Lymphocytes 31.4 % (21.0-51.0); %Monocytes 7.1 % (0.0-10.0); %Neutrophils 56.9 % (42.0-75.0); Mean Corpuscular HGB CONC 34.3 g/dL (32.0-36.0); Mean Corpuscular Hemoglobin 28.4 pg (27.0-31.0); Mean Corpuscular Volume 82.8 fL (78.0-98.0); Mean Platelet Volume 10.1 fL (7.4-10.4); Platelet Count 193 thou/uL (130-400); RBC Distribution Width 11.4 % (11.5-14.5); Red Blood Cell (RBC) Count 4.94 mill/uL (4.20-5.40); White Blood Cell (WBC) Count 9.7 thou/uL (4.8-10.8)
[2019-12-26 22:02] LABS: ALT (SGPT) 44 U/L (8-55); AST (SGOT) 14 U/L (5-34); Albumin 3.7 g/dL (3.5-5.0); Alkaline Phosphatase 114 U/L (40-110); Anion Gap 17 mmol/L (10-20); BUN (Urea Nitrogen) 10 mg/dL (7.0-18.7); Bilirubin, Total 0.7 mg/dL (0.2-1.2); Calc. Creatinine Clearance 0 mL/min (70-130); Calcium 8.7 mg/dL (7.8-10.44); Carbon Dioxide 23 mmol/L (22-29); Chloride 98 mmol/L (98-107); Estimated GFR-MDRD 71; Glucose 475 mg/dL (70-105); Potassium 3.7 mmol/L (3.5-5.1); Protein, Total 7.7 g/dL (6.0-8.3); Sodium 134 mmol/L (136-145)
[2019-12-26] MEDS ORDERED: Morphine 4 MG/ML VIAL ONE (22:11)
[2019-12-26] MEDS ORDERED: Ondansetron PF 4 MG/2 ML Vial ONE (22:11)
[2019-12-26] MEDS ORDERED: Nitroglycerin 2% Ointment 1 INCH/1 GM Packet ONE (22:11)
[2019-12-26] MEDS ORDERED: Aspirin Chewable 81 MG TAB ONE ×2 (22:11→22:12)
--- NOTE | 2019-12-26 23:01 | CT ---
CT ANGIOGRAM THORAX WITH CONTRAST: (CTA pulmonary angiogram) DATE: 12/26/2019 HISTORY: 49-year-old female with history of DVT presents with bilateral chest pain TECHNIQUE: IV injection of iodinated contrast. Scan acquisition timing attempted to coincide with iodinated contrast bolus reaching maximal density in pulmonary arteries. 3-D MIP reconstructions. FINDINGS: Pulmonary thromboembolism: None. Lungs: Clear. Pneumothorax: None. Pleural effusion: None. Thoracic aorta: No aneurysm or dissection. Mediastinum: No lymphadenopathy or other mass. Kristi: No lymphadenopathy or other mass. IMPRESSION: Normal.
[2019-12-26] MEDS ORDERED: Insulin Regular 300 UNITS/3 ML VIAL ONE (23:06)
[2019-12-26] MEDS ORDERED: Sodium Chloride 0.9% 1,000 ML IV SCH (23:45)
--- NOTE | 2019-12-26 23:49 | PDOC.HHP ---
Hospitalist HPI - History of Present Illness chest pain History of Present Illness: PCP: Dr. Lexy Spain The patient is a 49-year-old female with a past medical history significant for accelerated heart rate, DVT to left upper extremity (previously on Eliquis), HTN, HLD, DM 2 and bipolar/schizoaffective disorder that presents to the emergency department for the above complaint. The patient reports acute onset of chest pain at approximately 1300, located right chest, radiating to left chest, intermittent, described as stabbing exacerbated with cough and palpation, relieved by nothing. She has a history of DVT, denies any lower extremity swelling or pain. Reports intermittent, nonproductive cough. Denies heart palpitations, lightheadedness, shortness of breath, wheezing. Denies abdominal pain, nausea, vomiting, hematemesis, hematochezia or diarrhea. Denies dysuria or hematuria. No recent illness or fevers. ED Course: VITAL SIGNS TueDec 26, 2019 21:20 GEOVANNI Lewis Brianna BP: 159/91, Pulse: 108, Resp: 18, Temp: 98.5 (Oral), Pain: 9, O2 sat: 99 on (Ro om Air), Time: 12/26/2019 21:20. VITAL SIGNS TueDec 26, 2019 21:50 GEOVANNI Loera Catherine BP: 174/98, Pulse: 109, Resp: 18, Pain: 9, O2 sat: 96 on (Room Air), Time: 12/26/2019 21:50. VITAL SIGNS TueDec 26, 2019 22:45 GEOVANNI Anderson Kristin BP: 159/102, Pulse: 108, Resp: 18, Pain: 9, O2 sat: 97 on (Room Air), Time: 12/26/2019 22:45. VITAL SIGNS TueDec 26, 2019 23:13 GEOVANNI Loera Catherine BP: 151/88, Pulse: 98, Resp: 18, Pain: 9, O2 sat: 98 on (Room Air), Time: 12/26/2019 23:13. Medications: NovoLIN R Regular U-100 Insuln 10 units IV Push Given 23:14 12/26/2019 Nitro-Bid transdermal 1 inch Topical Given 22:55 12/26/2019 morphine injection 4 mg IV Push Given 22:52 12/26/2019 Normal Saline 1 L IV Fluid Infusion Given 22:47 12/26/2019 aspirin oral 324 mg Oral Given 22:23 12/26/2019 ondansetron HCl intravenous 4 mg IV Push Given 22:22 12/26/2019 Hospitalist ROS - Review of Systems All other systems reviewed; all pertinent +/- noted in HPI/Subj - Medication Medications: 1. Seroquel 40 mg p.o. nightly 2. Mirtazapine 45 mg p.o. nightly. 3. Lisinopril 10 mg p.o. daily 4. Victoza 1.8 units SC daily. 5. Prozac 20 mg p.o. daily. 6. Metformin 1000 mg p.o. twice daily 7. Buspirone 50 mg p.o. twice daily 8. Protonix 40 mg p.o. daily 9. Nitrostat 0.4 mg tablet SL every 5 minutes as needed chest pain 10. Tresiba U2 155 units SC twice daily 11. NovoLog 1 to 10 units SQ AC as needed ISS 12. Aristada 882 mg / 3.2 mL 1 syringe IM as directed Allergies: Codeine Hospitalist History - Past Medical History Source: patient, RN notes reviewed Cardiac: reports: HTN, Hyperlipidemia, Other (Accelerated heart rate) Pulmonary: reports: deep vein thrombosis (Left upper extremity (was on Eliquis in June)) Psych: reports: Anxiety, Bipolar, Other (Schizoaffective disorder) Endocrine: reports: Diabetes (Insulin-dependent) - Past Surgical History Past Surgical History: reports: Cholecystectomy, Hysterectomy, Tubal Ligation - Family History Family History: reports: Other (Adopted) - Social History Smoking Status: Never smoker Alcohol: reports: None Drugs: reports: none Living Situation: Alone Activity level: independent ambulation - Exam General Appearance: NAD, awake alert. negative: ill appearing Eye: anicteric sclera ENT: normocephalic atraumatic Neck: supple, symmetric Heart: RRR, no murmur, no gallops, no rubs, normal peripheral pulses Respiratory: CTAB, no wheezes, no rales, no ronchi, normal chest expansion, no tachypnea Gastrointestinal: soft, non-tender, normal bowel sounds, no bruit, no guarding, no rigidity Gastrointestinal - other findings: Negative Rovsing sign, negative Maria sign Extremities: no cyanosis, no edema Neurological: no focal deficits Musculoskeletal: normal tone, normal strength Psychiatric: normal affect, A&O x 3 Hospitalist Results - Labs Result Diagrams: 12/27/19 01:40 12/27/19 01:40 Lab results: WBC 9.7 thou/uL (4.8-10.8) 12/26/19 21:40 Hgb 14.0 g/dL (12.0-16.0) 12/26/19 21:40 Hct 40.9 % (36.0-47.0) 12/26/19 21:40 MCV 82.8 fL (78.0-98.0) 12/26/19 21:40 Plt Count 193 thou/uL (130-400) 12/26/19 21:40 Neutrophils % 56.9 % (42.0-75.0) 12/26/19 21:40 Sodium 134 mmol/L (136-145) L 12/26/19 21:40 Potassium 3.7 mmol/L (3.5-5.1) 12/26/19 21:40 Chloride 98 mmol/L (98-107) 12/26/19 21:40 Carbon Dioxide 23 mmol/L (22-29) 12/26/19 21:40 BUN 10 mg/dL (7.0-18.7) 12/26/19 21:40 Creatinine 1.00 mg/dL (0.6-1.1) 12/26/19 21:40 Glucose 475 mg/dL (70-105) H 12/26/19 21:40 Calcium 8.7 mg/dL (7.8-10.44) 12/26/19 21:40 Total Bilirubin 0.7 mg/dL (0.2-1.2) 12/26/19 21:40 AST 14 U/L (5-34) 12/26/19 21:40 ALT 44 U/L (8-55) 12/26/19 21:40 Alkaline Phosphatase 114 U/L (40-110) H 12/26/19 21:40 Creatine Kinase 50 U/L (29-168) 12/26/19 22:10 Troponin I Less than 0.010 ng/mL (< 0.028) 12/26/19 21:40 Serum Total Protein 7.7 g/dL (6.0-8.3) 12/26/19 21:40 Albumin 3.7 g/dL (3.5-5.0) 12/26/19 21:40 - EKG Interpretation EK lead EKG interpreted by Emergency Department Physician at time of study, Rate of 105. Sinus tachycardia. Normal axis. Normal intervals. Normal ST segments and T waves. Impression sinus tachycardia. - Radiology Interpretation CT scan - chest Status: report reviewed by me Additional Comment: Chest CT negative, with contrast, no pulmonary emboli, no thoracic aortic d issection, no pneumothorax, no hemothorax, no mass, no infiltrates, no effusion Hospitalist H&P A/P - Problem (1) Chest pain Code(s): R07.9 - CHEST PAIN, UNSPECIFIED Status: Acute (2) Sinus tachycardia Code(s): R00.0 - TACHYCARDIA, UNSPECIFIED Status: Chronic (3) DMII (diabetes mellitus, type 2) Status: Chronic (4) HTN (hypertension) Code(s): I10 - ESSENTIAL (PRIMARY) HYPERTENSION Status: Chronic (5) HLD (hyperlipidemia) Code(s): E78.5 - HYPERLIPIDEMIA, UNSPECIFIED Status: Chronic (6) Bipolar disorder Code(s): F31.9 - BIPOLAR DISORDER, UNSPECIFIED Status: Chronic (7) Schizo affective schizophrenia Code(s): F25.9 - SCHIZOAFFECTIVE DISORDER, UNSPECIFIED Status: Chronic - Plan Plan: 49/F with PMH HTN, HLD, DM 2, DVT presents for chest pain. Admit to stroke unit, observation status. Expected length of stay less than 2 midnights. Presented hypertensive and tachycardic, NL RR, SPO2, afebrile. EKG sinus tach, no ST elevations. Troponin negative, CK 50 CTA chest negative for PE. Glucose 475 CBC CMP unremarkable #Chest pain Reproducible with palpation. Appears pleuritic in nature.Toradol x1 dose now. Heart score 3, Wells PE score 6. Trend troponins, check BNP, TSH, mag, FLP, UA Continue aspirin, Nitropaste. Start statin. Heart score low risk, if troponins negative, consider outpatient COPY COORDINATOR. #Sinus tachycardia Reports history of accelerated heart rate. Had ablation 06/[address] Wilkerson. Recently restarted on unknown dosing of beta-leigh. Upon assessment, rate controlled in 80s. #DM2 Presented BG 475, gap closed. Received 10 units Humulin R in ED. Takes Levemir 55 units twice daily Takes Victoza 1.8 units SC Takes metformin. Hold metformin and Levemir for now. Restart Victoza. Moderate ISS. Accu-Cheks every 6 hours. #HTN Presented hypertensive, tachycardic. Takes unknown dose of beta-leigh at home. Currently HR 80s. Restart home dose lisinopril. Nursing to reconcile home medications. #HLD Obtain FLP. Start atorvastatin. #Bipolar disorder Denies SI/HI. Takes buspirone, Prozac, Seroquel at home. Restart home medications. #Schizoaffective disorder Denies SI/HI. Takes buspirone, Prozac, Seroquel at home. Restart home medications. SCDs for DVT prophylaxis. Pepcid for GI prophylaxis. Full code. Discussed the case with Dr. Lisette Hayes.
[2019-12-26] MEDS ORDERED: HumaLOG 300 UNITS/3 ML VIAL SC PRN (23:59)
[2019-12-26] MEDS ORDERED: Dextrose 50% Abboject 50 ML SYRINGE SLOW IVP PRN (23:59)
[2019-12-26] MEDS ORDERED: Dextrose 5% in Water 1,000 ML IV PRN (23:59)
[2019-12-27] MEDS ORDERED: Acetaminophen 325 MG TAB PO PRN
[2019-12-27] MEDS ORDERED: Ondansetron PF 4 MG/2 ML Vial IVP PRN
[2019-12-27] MEDS ORDERED: Senokot S 8.6-50 MG TAB PO PRN
[2019-12-27] MEDS ORDERED: Ondansetron ODT 4 MG TAB PO PRN
[2019-12-27 00:45] LABS: Magnesium 1.5 mg/dL (1.6-2.6)
[2019-12-27] MEDS ORDERED: Magnesium 2 GM/50 ML 2 GM in Premix Bag 1 BAG IVPB SCH (01:30)
[2019-12-27 01:40] VITALS: BMI 29.7
[2019-12-27 02:12] LABS: #Basophils 0.1 thou/uL (0.0-0.2); #Eosinphils 0.3 thou/uL (0.0-0.7); #Lymphocytes 2.8 thou/uL (1.20-3.40); #Monocytes 0.8 thou/uL (0.11-0.59); #Neutrophils 5.1 thou/uL (1.40-6.50); %Basophils 0.6 % (0.0-1.0); %Eosinophils 3.2 % (0.0-10.0); %Lymphocytes 31.4 % (21.0-51.0); %Monocytes 8.6 % (0.0-10.0); %Neutrophils 56.2 % (42.0-75.0); Hemoglobin 12.6 g/dL (12.0-16.0); Mean Corpuscular HGB CONC 35.4 g/dL (32.0-36.0); Mean Corpuscular Hemoglobin 29.1 pg (27.0-31.0); Mean Corpuscular Volume 82.1 fL (78.0-98.0); Mean Platelet Volume 10.3 fL (7.4-10.4); Platelet Count 165 thou/uL (130-400); RBC Distribution Width 11.3 % (11.5-14.5); Red Blood Cell (RBC) Count 4.34 mill/uL (4.20-5.40)
[2019-12-27] MEDS ORDERED: Ketorolac Tromethamine 30 MG/ML VIAL IVP SCH ×2 (02:15→05:45)
[2019-12-27 02:29] LABS: Anion Gap 13 mmol/L (10-20); BUN (Urea Nitrogen) 10 mg/dL (7.0-18.7); Calc. Creatinine Clearance 118 mL/min (70-130); Calcium 8.1 mg/dL (7.8-10.44); Carbon Dioxide 23 mmol/L (22-29); Cardiac Risk 5.4 (Less than 4.5); Chloride 104 mmol/L (98-107); Cholesterol 129 mg/dl (< 200 Desired); Estimated GFR-MDRD Greater than 90; Glucose 316 mg/dL (70-105); HDL Cholesterol 24 mg/dL (>60 Neg Risk); LDL Cholesterol, Calculated 39 mg/dL; Potassium 3.8 mmol/L (3.5-5.1); Sodium 136 mmol/L (136-145); Triglycerides 331 mg/dL (Less than 150)
[2019-12-27 02:34] LABS: Troponin I Less than 0.010 ng/mL (< 0.028)
[2019-12-27 03:13] VITALS: TEMP 98.1
[2019-12-27 05:10] LABS: Troponin I Less than 0.010 ng/mL (< 0.028)
[2019-12-27] MEDS ORDERED: Nitroglycerin 2% Ointment 1 INCH/1 GM Packet TOP SCH (06:00)
[2019-12-27] MEDS: HumaLOG 300 UNITS/3 ML VIAL SC PRN ×2 (06:07→12:36)
[2019-12-27] MEDS ORDERED: Morphine 2 MG/ML VIAL SLOW IVP PRN (08:47)
[2019-12-27] MEDS ORDERED: FLUoxetine HCl 20 MG CAP PO SCH (09:00)
[2019-12-27] MEDS ORDERED: busPIRone HCl 10 MG TAB PO SCH (09:00)
[2019-12-27] MEDS ORDERED: Lisinopril 10 MG TAB PO SCH (09:00)
[2019-12-27] MEDS ORDERED: Famotidine 20 MG TAB PO SCH (09:00)
[2019-12-27] MEDS ORDERED: LIRAGLUTIDE SC SCH (09:00)
[2019-12-27] MEDS ORDERED: Aspirin 81 mg Enteric Coated Tablet PO SCH (09:00)
[2019-12-27 09:20] LABS: Bilirubin Negative (Negative); Blood, Urine Negative (Negative); Clarity Clear (Clear); Glucose, Urine (Dipstick) Greater than 1000 mg/dL (Negative); Ketone, Urine Trace mg/dL (Negative); Leukocyte Negative Leu/uL (Negative); Nitrite Negative (Negative); Protein, Urine (Dipstick) Negative (Neg-Trace); RBC/HPF None Seen HPF (0-3); Urobilinogen Normal mg/dL (Less than 2); WBC/HPF 0-3 HPF (0-3); pH, Urine 5.5 (5.0-9.0)
[2019-12-27 09:22] LABS: Bacteria/HPF 1+ HPF (None Seen)
[2019-12-27 09:23] LABS: Specific Gravity, Urine 1.046 (1.002-1.036)
[2019-12-27 11:32] VITALS: BP 127/70
--- NOTE | 2019-12-27 12:39 | PDOC.DS.DS ---
Provider - Provider Date of Admission: 12/26/19 23:47 Admitting Provider: Lisette Miranda MD Primary Care Physician: Lexy Ortiz MD Course - Hospital Course Hospital Course: 49-year-old female presented with chest pain. She was recently admitted in June 2019 and diagnosed with supraventricular tachycardia and underwent ablation. She also had a nuclear medicine stress test in June 2019 without any evidence of reversible ischemia and EF of 67% Currently troponins were negative. CT angiogram negative for pulmonary embolism. She is on appropriate cardiac medications including aspirin, Lopressor. Michael is also taking pantoprazole fluoxetine buspirone. This findings and review of her previous charts there is not much intervention we can do in terms of her right-sided chest pain which probably due to pleuritic in nature. She has no fever or white count. If she had recurrent the chest and discomfort need to follow-up with primary care physician. Hemodynamically stable to be discharged home with Ultram. Discharge time over 30 minutes Code(s): R07.9 - CHEST PAIN, UNSPECIFIED Status: Acute (2) Sinus tachycardia Code(s): R00.0 - TACHYCARDIA, UNSPECIFIED Status: Chronic (3) DMII (diabetes mellitus, type 2) Status: Chronic (4) HTN (hypertension) Code(s): I10 - ESSENTIAL (PRIMARY) HYPERTENSION Status: Chronic (5) HLD (hyperlipidemia) Code(s): E78.5 - HYPERLIPIDEMIA, UNSPECIFIED Status: Chronic (6) Bipolar disorder Code(s): F31.9 - BIPOLAR DISORDER, UNSPECIFIED Status: Chronic (7) Schizo affective schizophrenia Code(s): F25.9 - SCHIZOAFFECTIVE DISORDER, UNSPECIFIED Status: Chronic Resuscitation Status: 12/27/19 00:00 Resuscitation Status Routine Co-Sign Provider: Resuscitation Status: FULL: Full Resuscitation Discussed with: patient - Labs Lab Results: 12/27/19 01:40 12/27/19 01:40 Abnormal Lab Results - Last 48 hrs 12/26/19 00:10: Magnesium 1.5 L 12/26/19 08:54: Ur Specific [place] 1.046 H, Urine Glucose (UA) Greater than 1000 A, Urine Ketones Trace A, Ur Squamous Epith Cells 4-6 A, Urine Bacteria 1+ A 12/26/19 21:40: RDW 11.4 L, Basophils % 1.1 H, Monocytes # 0.7 H 12/26/19 21:40: Sodium 134 L, Alkaline Phosphatase 114 H, Globulin 4.0 H, Albumin/Globulin Ratio 0.9 L 12/27/19 01:40: Triglycerides 331 H 12/27/19 01:40: Hct 35.6 L, RDW 11.3 L, Monocytes # 0.8 H - Physical Exam Vitals: Vital Signs (12 hours) Temp Pulse Resp BP BP Pulse Ox 12/27/19 11:30 98.1 F 70 12 127/70 100 12/27/19 08:27 96 12/27/19 08:16 145/75 H 12/27/19 07:28 98.1 F 86 14 124/75 96 12/27/19 03:04 98.1 F 88 16 116/56 L 92 L 12/27/19 01:25 98.3 F 88 16 97 Weight Weight 184 lb Physical Exam: The patient was seen and examined on the day of discharge. This test canceled as she had recently 1. Patient still has some right-sided chest pain mostly without any radiation and burning sensation. More of pleuritic in nature. CT angiogram negative for PE Plan - Discharge Medications Prescriptions: Aspirin [Ecotrin Low Strength] 81 mg PO DAILY 30 Days #30 tab traMADol HCl [Ultram] 50 mg PO Q6H PRN 5 Days #20 tab PRN Reason: Pain Home Medications: Medication Instructions Recorded Confirmed Type metFORMIN [Glucophage] 1,000 mg PO BID 11/05/14 12/27/19 History Aripiprazole Lauroxil [Aristada] 1 syringe IM ASDIR 06/17/19 12/27/19 History FLUoxetine HCl [Prozac] 20 mg PO DAILY 06/17/19 12/27/19 History Insulin Aspart [Novolog] 1 - 10 unit SQ AC PRN 06/17/19 12/27/19 History Insulin Degludec [Tresiba 55 units SC BID 06/17/19 12/27/19 History Flextouch U-200] Liraglutide [Victoza 3-Luis Daniel] 1.8 units SC DAILY 06/17/19 12/27/19 History Lisinopril 10 mg PO DAILY 06/17/19 12/27/19 History Mirtazapine 45 mg PO HS 06/17/19 12/27/19 History Pantoprazole Sodium 40 mg PO DAILY 06/17/19 12/27/19 History QUEtiapine Fumarate [SEROquel] 400 mg PO HS 06/17/19 12/27/19 History busPIRone HCl [Buspirone HCl] 15 mg PO BID 06/17/19 12/27/19 History Nitroglycerin [Nitrostat] 0.4 mg SL Q5MIN PRN #5 tab 06/19/19 12/27/19 Rx Acetaminophen [Acetaminophen 8 650 mg PO Q8H PRN #60 tablet.er 06/25/19 12/27/19 Rx Hour] Aspirin [Ecotrin Low Strength] 81 mg PO DAILY 30 Days #30 tab 12/27/19 Rx Metoprolol Succinate [Toprol XL] 25 mg PO BID 12/27/19 12/27/19 History traMADol HCl [Ultram] 50 mg PO Q6H PRN 5 Days #20 tab 12/27/19 Rx Allergies: codeine Allergy (Verified 12/27/19 07:51) - Discharge Instructions Discharge Instructions:: Follow-up with the PCP in 1 week - Follow up Plan Referrals: Lexy Ortiz MD [Primary Care Provider] - Disposition: HOME Quality - Care Measures CORE MEASURES:: N/A
[2019-12-27 14:07] LABS: SARS-CoV-2 MS2 Positive; SARS-CoV-2 N Gene Negative; SARS-CoV-2 S Gene Negative; SARS-CoV-2 by NAA Not Detected (NotDetected); SARS-CoV-2 orf1ab Negative
[2019-12-27] MEDS ORDERED: Atorvastatin Calcium 40 MG TAB PO SCH (21:00)
[2019-12-27] MEDS ORDERED: NPH, Human Insulin Isophane 300 UNIT/3 ML VIAL SC SCH (21:00)
[2019-12-27] MEDS ORDERED: Mirtazapine 30 MG TAB PO SCH (21:00)
--- NOTE | 2019-12-29 15:34 | EKG ---
Test Reason : Blood Pressure : / mmHG Vent. Rate : 104 BPM Atrial Rate : 104 BPM P-R Int : 136 ms QRS Dur : 078 ms QT Int : 340 ms P-R-T Axes : 055 038 039 degrees QTc Int : 447 ms Sinus tachycardia Cannot rule out Anterior infarct , age undetermined Abnormal ECG Confirmed by ORA MALDONADO, ECHO Kelly ([id number]), editorial clerk JENNY VELASCO ([id number]) on 12/29/2019 3:34:41 PM Referred By: Confirmed By:ECHO PAYAN MD
== END 2019-12-27 13:45 | disposition home or self-care (01) ==
LOC: ERS 21:19 → 2SE 23:47
PROVIDERS: ADMIT Internal Medicine; ATTEND Internal Medicine
DX: R07.9 Chest pain, unspecified (principal); R00.0 Tachycardia, unspecified; E11.9 Type 2 diabetes mellitus without complications; I10 Essential (primary) hypertension; E78.5 Hyperlipidemia, unspecified; F31.9 Bipolar disorder, unspecified; F25.9 Schizoaffective disorder, unspecified; F41.9 Anxiety disorder, unspecified; Z86.718 Personal history of other venous thrombosis and embolism; Z79.4 Long term (current) use of insulin; Z79.82 Long term (current) use of aspirin; Z79.899 Other long term (current) drug therapy; Z88.5 Allergy status to narcotic agent; Z20.828 Contact with and (suspected) exposure to other viral communicable diseases
CPT/HCPCS: 71275; 80048; 80061; 81001; 82550; 82962; 83690; 83735; 83880; 84484 ×3; 85025; 93005; 94760; 96374; 96375 ×2; 96376; 99285; G0378 ×2; J2270; U0003; 36415; 36416; 80053; 84443; 87635; J1815; J1885; J2405; J3475; Q9967

== ENCOUNTER 2020-05-17 13:54 | Observation (INO) | payer MEDICARE, MEDICAID ==
[2020-05-17 14:26] LABS: #Basophils 0.1 thou/uL (0.0-0.2); #Eosinphils 0.2 thou/uL (0.0-0.7); #Lymphocytes 2.4 thou/uL (1.20-3.40); #Monocytes 0.7 thou/uL (0.11-0.59); #Neutrophils 5.3 thou/uL (1.40-6.50); %Basophils 0.8 % (0.0-1.0); %Eosinophils 2.3 % (0.0-10.0); %Lymphocytes 27.6 % (21.0-51.0); %Monocytes 7.9 % (0.0-10.0); %Neutrophils 61.4 % (42.0-75.0); Hemoglobin 14.4 g/dL (12.0-16.0); Mean Corpuscular HGB CONC 35.1 g/dL (32.0-36.0); Mean Corpuscular Hemoglobin 28.8 pg (27.0-31.0); Mean Corpuscular Volume 82.1 fL (78.0-98.0); Mean Platelet Volume 9.7 fL (7.4-10.4); Platelet Count 220 thou/uL (130-400); RBC Distribution Width 11.4 % (11.5-14.5); Red Blood Cell (RBC) Count 4.99 mill/uL (4.20-5.40); White Blood Cell (WBC) Count 8.6 thou/uL (4.8-10.8)
[2020-05-17 14:46] LABS: ALT (SGPT) 24 U/L (8-55); AST (SGOT) 9 U/L (5-34); Albumin 3.8 g/dL (3.5-5.0); Alkaline Phosphatase 103 U/L (40-110); Anion Gap 13 mmol/L (10-20); BUN (Urea Nitrogen) 9 mg/dL (7.0-18.7); Bilirubin, Total 0.8 mg/dL (0.2-1.2); Calc. Creatinine Clearance 0 mL/min (70-130); Calcium 8.6 mg/dL (7.8-10.44); Carbon Dioxide 26 mmol/L (22-29); Chloride 102 mmol/L (98-107); Glucose 275 mg/dL (70-105); Lipase 35 U/L (8-78); Potassium 3.7 mmol/L (3.5-5.1); Protein, Total 7.8 g/dL (6.0-8.3); Sodium 137 mmol/L (136-145)
[2020-05-17] MEDS ORDERED: Fentanyl 100 MCG/2 ML VIAL ONE (15:43)
[2020-05-17] MEDS ORDERED: Ondansetron PF 4 MG/2 ML Vial IVP PRN (17:32)
[2020-05-17] MEDS ORDERED: Dextrose 50% Abboject 50 ML SYRINGE SLOW IVP PRN (17:32)
[2020-05-17] MEDS ORDERED: HumaLOG 300 UNITS/3 ML VIAL SC PRN ×2 (17:32)
[2020-05-17] MEDS ORDERED: Dextrose 5% in Water 1,000 ML IV PRN (17:32)
[2020-05-17] MEDS ORDERED: Fentanyl 100 MCG/2 ML VIAL SLOW IVP PRN (17:52)
[2020-05-17 18:06] LABS: Troponin I Less than 0.010 ng/mL (< 0.028)
[2020-05-17 19:13] VITALS: BMI 27.8
[2020-05-17] MEDS: Acetaminophen 500 MG TAB PO PRN (20:13)
[2020-05-17] MEDS: Atorvastatin Calcium 10 MG TAB PO SCH (20:13)
[2020-05-17] MEDS: Nitroglycerin 2% Ointment 1 INCH/1 GM Packet TOP SCH (20:14)
[2020-05-17] MEDS: Sodium Chloride 0.9% 1,000 ML IV SCH (20:28)
[2020-05-17] MEDS: Lantus 1000 UNITS/10 ML VIAL SC SCH (20:52)
[2020-05-17 21:16] LABS: Troponin I Less than 0.010 ng/mL (< 0.028)
[2020-05-18 04:42] LABS: SARS-CoV-2 PCR NAA for Saliva Not Detected (NotDetected)
[2020-05-18 05:40] LABS: Hemoglobin 12.5 g/dL (12.0-16.0); Mean Corpuscular HGB CONC 35.8 g/dL (32.0-36.0); Mean Corpuscular Hemoglobin 29.5 pg (27.0-31.0); Mean Corpuscular Volume 82.4 fL (78.0-98.0); Mean Platelet Volume 9.8 fL (7.4-10.4); Platelet Count 181 thou/uL (130-400); RBC Distribution Width 11.4 % (11.5-14.5); Red Blood Cell (RBC) Count 4.25 mill/uL (4.20-5.40); White Blood Cell (WBC) Count 7.7 thou/uL (4.8-10.8)
[2020-05-18 05:49] LABS: Anion Gap 10 mmol/L (10-20); BUN (Urea Nitrogen) 13 mg/dL (7.0-18.7); Calc. Creatinine Clearance 126 mL/min (70-130); Calcium 8.2 mg/dL (7.8-10.44); Carbon Dioxide 25 mmol/L (22-29); Cardiac Risk 5.3 (Less than 4.5); Chloride 105 mmol/L (98-107); Cholesterol 132 mg/dl (< 200 Desired); Glucose 229 mg/dL (70-105); HDL Cholesterol 25 mg/dL (>60 Neg Risk); LDL Cholesterol, Calculated 81 mg/dL; Potassium 3.5 mmol/L (3.5-5.1); Sodium 136 mmol/L (136-145); Triglycerides 130 mg/dL (Less than 150)
[2020-05-18 06:54] LABS: Band 2 % (5-11); Eosinophils 3 % (0-10); Lymphocytes 37 % (21-51); MDiff Complete? YES; Monocytes 3 % (0-10); Neutrophil 55 % (42-75)
[2020-05-18] MEDS: Nitroglycerin 2% Ointment 1 INCH/1 GM Packet TOP SCH ×3 (07:25→18:35)
[2020-05-18] MEDS: Aspirin 325 mg Enteric Coated Tablet PO SCH ×2 (08:57→11:40)
[2020-05-18] MEDS: FLUoxetine HCl 20 MG CAP PO SCH ×2 (08:58→11:40)
[2020-05-18] MEDS ORDERED: Lantus 1000 UNITS/10 ML VIAL SC SCH (09:00)
[2020-05-18] MEDS ORDERED: Regadenoson 0.4 MG/5 ML SYRINGE ONE (11:07)
[2020-05-18] MEDS: Acetaminophen 500 MG TAB PO PRN (11:40)
[2020-05-18] MEDS ORDERED: traMADol HCl 50 MG TAB PO PRN (15:10)
[2020-05-18] MEDS: Sodium Chloride 0.9% 1,000 ML IV SCH (15:35)
[2020-05-18] MEDS ORDERED: Communication Order-Pharmacy FS SCH (19:30)
[2020-05-18] MEDS: Atorvastatin Calcium 10 MG TAB PO SCH (20:58)
[2020-05-18] MEDS: busPIRone HCl 10 MG TAB PO SCH (20:58)
[2020-05-18] MEDS: Lantus 1000 UNITS/10 ML VIAL SC SCH (22:21)
[2020-05-18] MEDS ORDERED: Nitroglycerin 0.4 MG TAB (25 Tab Bottle) SL PRN (22:35)
[2020-05-19] MEDS: Nitroglycerin 2% Ointment 1 INCH/1 GM Packet TOP SCH (05:28)
[2020-05-19] MEDS: Aspirin 325 mg Enteric Coated Tablet PO SCH (05:28)
[2020-05-19] MEDS: busPIRone HCl 10 MG TAB PO SCH (05:29)
[2020-05-19] MEDS: FLUoxetine HCl 20 MG CAP PO SCH (05:29)
[2020-05-19 05:44] LABS: Anion Gap 12 mmol/L (10-20); BUN (Urea Nitrogen) 11 mg/dL (7.0-18.7); Calc. Creatinine Clearance 121 mL/min (70-130); Calcium 8.3 mg/dL (7.8-10.44); Carbon Dioxide 26 mmol/L (22-29); Chloride 106 mmol/L (98-107); Glucose 225 mg/dL (70-105); Potassium 3.7 mmol/L (3.5-5.1); Sodium 140 mmol/L (136-145)
[2020-05-19] MEDS ORDERED: Sodium Chloride 0.9% 1,000 ML IV SCH (06:00)
[2020-05-19] MEDS ORDERED: Lidocaine 1% (PF) 30 ML VIAL ONE (08:15)
[2020-05-19] MEDS ORDERED: Fentanyl 100 MCG/2 ML VIAL ONE (08:41)
[2020-05-19] MEDS ORDERED: Midazolam HCl 2 mg/2 ml Vial ONE (08:41)
[2020-05-19] MEDS ORDERED: Sodium Chloride 0.9% 200 ML IV PRN (09:19)
[2020-05-19] MEDS ORDERED: Nitroglycerin 0.4 MG TAB (25 Tab Bottle) SL PRN (09:19)
[2020-05-19 10:25] LABS: Bilirubin Negative (Negative); Blood, Urine Negative (Negative); Clarity Clear (Clear); Glucose, Urine (Dipstick) Greater than 1000 mg/dL (Negative); Ketone, Urine Negative (Negative); Leukocyte 250 Leu/uL (Negative); Nitrite Negative (Negative); Protein, Urine (Dipstick) 10 mg/dL (Neg-Trace); Urobilinogen Normal mg/dL (Less than 2)
[2020-05-19 10:26] LABS: Bacteria/HPF Rare-Few HPF (None Seen)
[2020-05-19 10:28] LABS: Urine Culture Reflex No No
[2020-05-19] MEDS ORDERED: Iopamidol 370 76% 100 ML VIAL ONE (11:21)
[2020-05-19 12:06] VITALS: TEMP 97.9
[2020-05-19 16:19] VITALS: BP 133/72
[2020-05-20] MEDS ORDERED: Aspirin 81 mg Enteric Coated Tablet PO SCH (09:00)
== END 2020-05-19 15:10 | disposition home or self-care (01) ==
LOC: ERS 13:54 → 2SW 17:24
PROVIDERS: ADMIT Family Medicine; ATTEND Family Medicine
PROC: 4A023N7 Measurement of Cardiac Sampling and Pressure, Left Heart, Percutaneous Approach (ICD-10-PCS; principal; 2020-05-19)
PROC: B2111ZZ Fluoroscopy of Multiple Coronary Arteries using Low Osmolar Contrast (ICD-10-PCS; 2020-05-19)
DX: R07.89 Other chest pain (principal); E11.65 Type 2 diabetes mellitus with hyperglycemia; I10 Essential (primary) hypertension; E78.5 Hyperlipidemia, unspecified; K21.9 Gastro-esophageal reflux disease without esophagitis; I47.1 Supraventricular tachycardia; E04.2 Nontoxic multinodular goiter; K44.9 Diaphragmatic hernia without obstruction or gangrene; Z79.4 Long term (current) use of insulin; Z79.899 Other long term (current) drug therapy; Z88.5 Allergy status to narcotic agent; Z20.822 Contact with and (suspected) exposure to COVID-19
CPT/HCPCS: 71045; 71275; 76942; 78452; 80048 ×2; 80053; 80061; 81001; 82962 ×3; 83690; 84484 ×2; 85025 ×2; 85379; 87077; 87086; 93005 ×2; 93017; 93306; 93458; 94760 ×3; 96374; 99285; A9500; G0378 ×4; U0003; U0005; 36415; 36416; 87635; 93010; 99152; 99153; J1815; J2001; J2250; J2785; J3010; Q9967

== ENCOUNTER 2020-12-01 17:09 | Inpatient (IN) | payer MEDICARE, MEDICAID ==
[2020-12-01 17:51] LABS: #Basophils 0.1 thou/uL (0.0-0.2); #Eosinphils 0.3 thou/uL (0.0-0.7); #Lymphocytes 3.1 thou/uL (1.20-3.40); #Neutrophils 6.6 thou/uL (1.40-6.50); %Basophils 0.6 % (0.0-1.0); %Eosinophils 2.3 % (0.0-10.0); %Lymphocytes 28.4 % (21.0-51.0); %Monocytes 8.8 % (0.0-10.0); %Neutrophils 59.9 % (42.0-75.0); Hemoglobin 13.9 g/dL (12.0-16.0); Mean Corpuscular Hemoglobin 28.4 pg (27.0-31.0); Mean Corpuscular Volume 80.9 fL (78.0-98.0); Platelet Count 209 thou/uL (130-400); RBC Distribution Width 13.1 % (11.5-14.5)
[2020-12-01 18:16] LABS: ALT (SGPT) 18 U/L (8-55); AST (SGOT) 11 U/L (5-34); Albumin 3.6 g/dL (3.5-5.0); Alkaline Phosphatase 116 U/L (40-110); Anion Gap 21 mmol/L (10-20); BUN (Urea Nitrogen) 10 mg/dL (7.0-18.7); Bilirubin, Total 0.7 mg/dL (0.2-1.2); Calc. Creatinine Clearance 0 mL/min (70-130); Calcium 8.8 mg/dL (7.8-10.44); Carbon Dioxide 18 mmol/L (22-29); Chloride 97 mmol/L (98-107); Globulin 3.8 g/dL (2.4-3.5); Glucose 537 mg/dL (70-105); Potassium 4.3 mmol/L (3.5-5.1); Protein, Total 7.4 g/dL (6.0-8.3); Sodium 132 mmol/L (136-145)
[2020-12-01] MEDS ORDERED: Clindamycin/D5W 600 mg/50 ml Premix Bag ONE (19:03)
[2020-12-01] MEDS ORDERED: Insulin Regular 300 UNITS/3 ML VIAL ONE ×2 (19:04→19:20)
[2020-12-01] MEDS ORDERED: INSULIN REGULAR IN 0.9 % NACL 100 UNIT/100 ML BAG ONE (19:08)
[2020-12-01] MEDS ORDERED: Clindamycin/D5W 300 MG in Premix Bag 1 BAG IVPB SCH (19:30)
[2020-12-01] MEDS ORDERED: Ondansetron PF 4 MG/2 ML Vial ONE (19:56)
[2020-12-01] MEDS ORDERED: Acetaminophen 500 MG TAB ONE (19:56)
[2020-12-01 20:16] LABS: Actual Bicarbonate (HCO3v) 16 mEq/L (22-28); Analyzer IN Cardio ER; Base Excess -7.2 mEq/L (-2.0 to +3.0); Chloride (VBG) 99 mmol/L (98-106); Hemoglobin (Hb) 14.7 g/dL (11.7-16.0); Potassium (VBG) 4.14 mmol/L (3.70-5.30); Sodium 131.2 mmol/L (133-146)
[2020-12-01 20:42] LABS: Anion Gap 20 mmol/L (10-20); BUN (Urea Nitrogen) 9 mg/dL (7.0-18.7); Calc. Creatinine Clearance 0 mL/min (70-130); Calcium 8.1 mg/dL (7.8-10.44); Carbon Dioxide 15 mmol/L (22-29); Chloride 103 mmol/L (98-107); Glucose 392 mg/dL (70-105); Potassium 4.4 mmol/L (3.5-5.1); Sodium 134 mmol/L (136-145)
[2020-12-01] MEDS ORDERED: Dextrose 50% Abboject 50 ML SYRINGE SLOW IVP PRN (21:51)
[2020-12-01] MEDS ORDERED: Dextrose 5% in Water 1,000 ML IV PRN (21:51)
[2020-12-01] MEDS ORDERED: HumaLOG 300 UNITS/3 ML VIAL SC PRN (21:56)
[2020-12-01] MEDS ORDERED: Acetaminophen 325 MG TAB PO PRN (21:56)
[2020-12-01] MEDS ORDERED: Ondansetron ODT 4 MG TAB PO PRN (21:56)
[2020-12-01] MEDS ORDERED: Ondansetron PF 4 MG/2 ML Vial IVP PRN (21:56)
[2020-12-01] MEDS ORDERED: Sodium Chloride 0.9% 1,000 ML IV SCH (22:15)
[2020-12-01] MEDS ORDERED: Non-Formulary Item 1 EACH (Insulin Degludec [Tresiba] 100 UNIT/ML Vial) SQ SCH (22:30)
[2020-12-01 23:51] VITALS: BMI 26.6
[2020-12-02] MEDS ORDERED: Ibuprofen 600 MG TAB PO PRN (00:19)
[2020-12-02] MEDS ORDERED: Ketorolac Tromethamine 30 MG/ML VIAL IVP SCH (00:30)
[2020-12-02 01:42] LABS: Anion Gap 18 mmol/L (10-20); BUN (Urea Nitrogen) 7 mg/dL (7.0-18.7); Calc. Creatinine Clearance 96 mL/min (70-130); Calcium 7.7 mg/dL (7.8-10.44); Carbon Dioxide 14 mmol/L (22-29); Chloride 106 mmol/L (98-107); Glucose 436 mg/dL (70-105); Sodium 134 mmol/L (136-145)
[2020-12-02] MEDS ORDERED: Sodium Chloride 0.9% 1,000 ML IV SCH (02:00)
[2020-12-02] MEDS: HumaLOG 300 UNITS/3 ML VIAL SC PRN ×3 (02:02→14:37)
[2020-12-02] MEDS: NS 0.9% w/ 20 MEQ KCL 1,000 ML/1,000 ML BAG IV SCH ×2 (03:21→12:50)
[2020-12-02 05:26] LABS: #Basophils 0.1 thou/uL (0.0-0.2); #Eosinphils 0.2 thou/uL (0.0-0.7); #Lymphocytes 2.2 thou/uL (1.20-3.40); #Monocytes 0.7 thou/uL (0.11-0.59); #Neutrophils 5.2 thou/uL (1.40-6.50); %Basophils 0.6 % (0.0-1.0); %Eosinophils 2.7 % (0.0-10.0); %Lymphocytes 25.9 % (21.0-51.0); %Monocytes 8.7 % (0.0-10.0); Hemoglobin 12.3 g/dL (12.0-16.0); Mean Corpuscular HGB CONC 35.6 g/dL (32.0-36.0); Mean Corpuscular Hemoglobin 29.3 pg (27.0-31.0); Mean Corpuscular Volume 82.2 fL (78.0-98.0); Mean Platelet Volume 9.5 fL (7.4-10.4); Platelet Count 156 thou/uL (130-400); RBC Distribution Width 12.9 % (11.5-14.5); White Blood Cell (WBC) Count 8.4 thou/uL (4.8-10.8)
[2020-12-02] MEDS: Clindamycin 150 MG CAP PO SCH ×3 (06:09→21:35)
[2020-12-02] MEDS: Acetaminophen 500 MG TAB PO PRN ×2 (06:09→12:45)
[2020-12-02 06:18] LABS: Anion Gap 12 mmol/L (10-20); BUN (Urea Nitrogen) 7 mg/dL (7.0-18.7); Calc. Creatinine Clearance 106 mL/min (70-130); Carbon Dioxide 18 mmol/L (22-29); Chloride 112 mmol/L (98-107); Glucose 249 mg/dL (70-105); Potassium 3.8 mmol/L (3.5-5.1); Sodium 138 mmol/L (136-145)
[2020-12-02] MEDS: FLUoxetine HCl 20 MG CAP PO SCH (08:48)
[2020-12-02] MEDS: metFORMIN 500 MG TAB PO SCH ×2 (08:48→21:35)
[2020-12-02] MEDS: Lisinopril 10 MG TAB PO SCH (08:48)
[2020-12-02] MEDS: busPIRone HCl 5 MG TAB PO SCH ×3 (08:48→21:34)
[2020-12-02] MEDS: Lantus 1000 UNITS/10 ML VIAL SC SCH ×2 (08:49→23:21)
[2020-12-02] MEDS ORDERED: Fluconazole 100 MG TAB PO SCH (09:00)
[2020-12-02] MEDS ORDERED: Liraglutide [Victoza 3-Pak] 0.6 MG/0.1 ML Pen.Injctr SC SCH (09:00)
[2020-12-02] MEDS ORDERED: FLU VACC QS2021-22(6MOS UP)/PF 60 MCG/0.5 ML SYRINGE IM ONE (09:00)
[2020-12-02] MEDS ORDERED: Apixaban 5 MG TAB PO SCH (09:00)
[2020-12-02 09:36] LABS: Troponin I Less than 0.010 ng/mL (< 0.028)
[2020-12-02 11:53] LABS: SARS-CoV-2 PCR by NAA Not Detected (NotDetected)
[2020-12-02 14:07] LABS: Troponin I Less than 0.010 ng/mL (< 0.028)
[2020-12-02] MEDS ORDERED: Calcium Carbonate 500 MG ChewTAB PO PRN (17:21)
[2020-12-02] MEDS: Acetaminophen 500 MG TAB PO SCH (18:28)
[2020-12-02] MEDS ORDERED: Atorvastatin Calcium 10 MG TAB PO SCH (21:00)
[2020-12-02] MEDS: Apixaban 5 MG TAB PO SCH (21:34)
[2020-12-02] MEDS: Ibuprofen 600 MG TAB PO PRN (21:36)
[2020-12-03] MEDS: NS 0.9% w/ 20 MEQ KCL 1,000 ML/1,000 ML BAG IV SCH ×2 (04:22→07:10)
[2020-12-03] MEDS: Acetaminophen 500 MG TAB PO SCH ×2 (05:23→14:58)
[2020-12-03] MEDS: Clindamycin 150 MG CAP PO SCH ×2 (05:23→14:57)
[2020-12-03] MEDS: HumaLOG 300 UNITS/3 ML VIAL SC PRN ×2 (06:25→11:49)
[2020-12-03] MEDS: metFORMIN 500 MG TAB PO SCH (10:00)
[2020-12-03] MEDS: Ibuprofen 600 MG TAB PO PRN (10:01)
[2020-12-03] MEDS: FLUoxetine HCl 20 MG CAP PO SCH (10:02)
[2020-12-03] MEDS: busPIRone HCl 5 MG TAB PO SCH ×2 (10:02→14:57)
[2020-12-03] MEDS: Lisinopril 10 MG TAB PO SCH (10:03)
[2020-12-03] MEDS: Lantus 1000 UNITS/10 ML VIAL SC SCH (10:03)
[2020-12-03] MEDS: Apixaban 5 MG TAB PO SCH (10:03)
[2020-12-03 11:46] VITALS: BP 131/74; TEMP 98.5
[2020-12-06] MEDS ORDERED: Apixaban 5 MG TAB PO SCH (09:00)
== END 2020-12-03 17:30 | disposition home or self-care (01) | DRG 638 ==
LOC: ERS 17:09 → 2NO 21:16
PROVIDERS: ADMIT Family Medicine; ATTEND Family Medicine
DX: E11.65 Type 2 diabetes mellitus with hyperglycemia (principal); L02.215 Cutaneous abscess of perineum; E78.5 Hyperlipidemia, unspecified; E78.00 Pure hypercholesterolemia, unspecified; I10 Essential (primary) hypertension; F20.9 Schizophrenia, unspecified; F41.9 Anxiety disorder, unspecified; R07.89 Other chest pain; B37.3 Candidiasis of vulva and vagina; Z20.822 Contact with and (suspected) exposure to COVID-19; F31.9 Bipolar disorder, unspecified; Z88.5 Allergy status to narcotic agent; Z88.2 Allergy status to sulfonamides; Z86.718 Personal history of other venous thrombosis and embolism; Z90.49 Acquired absence of other specified parts of digestive tract; Z90.710 Acquired absence of both cervix and uterus; Z98.51 Tubal ligation status; Z79.01 Long term (current) use of anticoagulants; Z86.711 Personal history of pulmonary embolism; Z79.4 Long term (current) use of insulin; Z79.899 Other long term (current) drug therapy; Z91.14 Patient's other noncompliance with medication regimen
CPT/HCPCS: 36415; 36416; 71045; 80048; 80053; 82010; 82805; 84484; 85025; 87040; 93005; 93010; 94760; 96365; 96375; J1815; J1885; J2405; J3480; J3490; J7050; U0003; U0005

== ENCOUNTER 2023-02-23 09:52 | Emergency (ER) | payer OTHER, MEDICAID ==
[2023-02-23] MEDS ORDERED: traMADol HCl 50 MG TAB ONE (13:13)
== END 2023-02-23 13:15 | disposition home or self-care (01) ==
LOC: ERS 09:52
DX: S82.832A Other fracture of upper and lower end of left fibula, initial encounter for closed fracture (principal); E11.9 Type 2 diabetes mellitus without complications; E78.00 Pure hypercholesterolemia, unspecified; Z79.84 Long term (current) use of oral hypoglycemic drugs; Z79.899 Other long term (current) drug therapy; Z79.4 Long term (current) use of insulin; W01.0XXA Fall on same level from slipping, tripping and stumbling without subsequent striking against object, initial encounter
CPT/HCPCS: 29515

== ENCOUNTER 2023-12-02 00:34 | Inpatient (IN) | payer OTHER, MEDICAID ==
[2023-12-02] MEDS ORDERED: Mag-Al 1200 mg/1200 mg/30 ML UDCUP ONE (01:26)
[2023-12-02] MEDS ORDERED: Ondansetron PF 4 MG/2 ML Vial ONE (01:26)
[2023-12-02] MEDS ORDERED: Lidocaine Viscous Sol 2% 15 ml UD Cup ONE (01:26)
[2023-12-02] MEDS ORDERED: Famotidine/PF 20 mg/2ml Vial ONE (01:26)
[2023-12-02 01:50] LABS: #Basophils 0.03 10x3/uL (0.0-0.2); %Basophils 0.2 % (0.0-1.0); %Monocytes 4.6 % (0.0-10.0); Hematocrit 40.5 % (36.0-47.0); Hemoglobin 14.1 g/dL (12.0-16.0); Mean Corpuscular HGB CONC 34.8 g/dL (32.0-36.0); Mean Corpuscular Hemoglobin 27.3 pg (27.0-31.0); Mean Corpuscular Volume 78.5 fL (78.0-98.0); Mean Platelet Volume 11.5 fL (7.4-10.4); Platelet Count 248 10x3/uL (130-400); Red Blood Cell (RBC) Count 5.16 mill/uL (4.20-5.40)
[2023-12-02 02:08] LABS: ALT (SGPT) 21 U/L (8-55); AST (SGOT) 15 U/L (5-34); Albumin 3.9 g/dL (3.5-5.0); Alkaline Phosphatase 83 U/L (40-110); Anion Gap 15 mmol/L (10-20); BUN (Urea Nitrogen) 10 mg/dL (9.8-20.1); Bilirubin, Total 1.4 mg/dL (0.2-1.2); Calc. Creatinine Clearance 0 mL/min (70-130); Calcium 9.4 mg/dL (7.8-10.44); Carbon Dioxide 19 mmol/L (22-29); Chloride 107 mmol/L (98-107); Estimated GFR 88; Globulin 4.3 g/dL (2.4-3.5); Glucose 88 mg/dL (70-105); Lipase 21 U/L (8-78); Potassium 3.7 mmol/L (3.5-5.1); Protein, Total 8.2 g/dL (6.0-8.3); Sodium 137 mmol/L (136-145)
[2023-12-02 02:11] LABS: Troponin I Less than 0.010 ng/mL (< 0.028)
[2023-12-02 02:54] LABS: Bacteria/HPF 2+ HPF (None Seen); Bilirubin Negative (Negative); Blood, Urine Negative (Negative); CAUTI Indications for Culture Pelvic or flank pain; Clarity Turbid (Clear); Glucose, Urine (Dipstick) Normal (Negative); Ketone, Urine Negative (Negative); Leukocyte 250 Leu/uL (Negative); Nitrite Negative (Negative); Protein, Urine (Dipstick) 50 mg/dL (Neg-Trace); RBC/HPF 0-3 HPF (0-3); Specific Gravity, Urine 1.025 (1.002-1.036); Urobilinogen Normal mg/dL (Less than 2); pH, Urine 5.5 (5.0-9.0)
[2023-12-02 03:03] LABS: Urine Culture Reflex No No
[2023-12-02] MEDS ORDERED: Sodium Chloride 0.9% 100 ML ONE (04:02)
[2023-12-02] MEDS ORDERED: cefTRIAXone (ROCEPHIN) 2 GM VIAL ONE (04:02)
[2023-12-02] MEDS ORDERED: Dextrose 10% in Water 250 ML ONE (04:52)
[2023-12-02] MEDS ORDERED: Ketorolac Tromethamine 30 MG (1 mL) VIAL IVP PRN (07:16)
[2023-12-02] MEDS ORDERED: Ondansetron ODT 4 MG TAB PO PRN (07:16)
[2023-12-02] MEDS ORDERED: Glucagon 1 MG/ML KIT IM PRN ×2 (07:17→21:19)
[2023-12-02] MEDS ORDERED: Dextrose 5% in Water 1,000 ML IV PRN ×2 (07:17→21:19)
[2023-12-02] MEDS ORDERED: Dextrose 50% Abboject 50 ML SYRINGE SLOW IVP PRN ×2 (07:17→21:19)
[2023-12-02] MEDS ORDERED: Famotidine 20 MG TAB PO SCH (09:00)
[2023-12-02] MEDS ORDERED: Famotidine/PF 20 mg/2ml Vial SLOW IVP SCH (09:00)
[2023-12-02] MEDS: Dextrose 10% in Water 1,000 ML IV SCH ×3 (09:44→21:10)
[2023-12-02] MEDS: Enoxaparin 40 MG (0.4 mL) SYRINGE SC SCH (09:48)
[2023-12-02] MEDS: Pantoprazole 40 MG VIAL IVP SCH (09:48)
[2023-12-02] MEDS ORDERED: Iopamidol-370 76% 500 ML MDV (1 ML CHARGE) ONE (11:20)
[2023-12-02] MEDS: Lithium Carbonate 300 MG ER.TAB PO SCH (12:19)
[2023-12-02] MEDS: methylPREDNISolone Sod Succ 40 MG VIAL IVP SCH (12:20)
[2023-12-02] MEDS: Acetaminophen 325 MG TAB PO PRN (12:27)
[2023-12-02] MEDS: Mirtazapine 15 MG TAB PO SCH (21:09)
[2023-12-02] MEDS: Insulin Lispro 100 UNIT/ML 10 ML VIAL SC PRN (23:09)
[2023-12-03 04:26] LABS: Anion Gap 15 mmol/L (10-20); BUN (Urea Nitrogen) 13 mg/dL (9.8-20.1); Calc. Creatinine Clearance 92 mL/min (70-130); Carbon Dioxide 22 mmol/L (22-29); Chloride 104 mmol/L (98-107); Estimated GFR 73; Glucose 272 mg/dL (70-105); Potassium 4.2 mmol/L (3.5-5.1); Sodium 137 mmol/L (136-145)
[2023-12-03] MEDS: cefTRIAXone\\ROCEPHIN 1 GM in Sodium Chloride 0.9% 100 ML IVPB SCH (06:44)
[2023-12-03] MEDS: Pantoprazole 40 MG VIAL IVP SCH (08:01)
[2023-12-03] MEDS: Lithium Carbonate 300 MG ER.TAB PO SCH (08:02)
[2023-12-03] MEDS: methylPREDNISolone Sod Succ 40 MG VIAL IVP SCH (08:02)
[2023-12-03] MEDS ORDERED: Pantoprazole DR 40 MG TAB PO PRN (09:33)
[2023-12-03] MEDS ORDERED: Non-Formulary Item 1 EACH (Insulin Degludec [Tresiba] 100 UNIT/ML Vial) SQ SCH (09:35)
[2023-12-03] MEDS: metFORMIN 500 MG TAB PO SCH (16:32)
[2023-12-03] MEDS: FLU (Fluarix Triv) TS24-25(6MOS UP)/PF 45 MCG/0.5 ML Syringe IM ONE (16:58)
[2023-12-03] MEDS: Atorvastatin Calcium 10 MG TAB PO SCH (20:13)
[2023-12-03] MEDS: hydrOXYzine Pamoate 25 mg Capsule PO PRN (20:13)
[2023-12-03] MEDS: Mirtazapine 15 MG TAB PO SCH (20:14)
[2023-12-04] MEDS ORDERED: Non-Formulary Item 1 EACH (Famotidine [Pepcid] 40 MG Tablet) PO SCH (09:00)
[2023-12-04] MEDS: Lithium Carbonate 300 MG ER.TAB PO SCH (09:02)
[2023-12-04] MEDS: Insulin Glargine 30 UNITS/0.3 ML VIAL SC SCH (09:03)
[2023-12-04] MEDS: Famotidine 20 MG TAB PO SCH (09:03)
[2023-12-04] MEDS ORDERED: Insulin Glargine 30 UNITS/0.3 ML VIAL SC SCH (10:18)
[2023-12-04] MEDS: Insulin Lispro 100 UNIT/ML 10 ML VIAL SC SCH (12:12)
[2023-12-04 14:16] LABS: #Basophils 0.05 10x3/uL (0.0-0.2); %Basophils 0.4 % (0.0-1.0); %Eosinophils 2.2 % (0.0-10.0); %Lymphocytes 37.1 % (21.0-51.0); %Monocytes 5.3 % (0.0-10.0); %Neutrophils 54.7 % (42.0-75.0); Hematocrit 38.1 % (36.0-47.0); Hemoglobin 13.1 g/dL (12.0-16.0); Mean Corpuscular HGB CONC 34.4 g/dL (32.0-36.0); Mean Corpuscular Hemoglobin 27.3 pg (27.0-31.0); Mean Corpuscular Volume 79.5 fL (78.0-98.0); Mean Platelet Volume 11.7 fL (7.4-10.4); Platelet Count 216 10x3/uL (130-400); RBC Distribution Width 12.1 % (11.5-14.5); Red Blood Cell (RBC) Count 4.79 mill/uL (4.20-5.40)
[2023-12-04 14:51] LABS: Anion Gap 10 mmol/L (10-20); BUN (Urea Nitrogen) 10 mg/dL (9.8-20.1); Calc. Creatinine Clearance 113 mL/min (70-130); Calcium 8.6 mg/dL (7.8-10.44); Carbon Dioxide 24 mmol/L (22-29); Chloride 107 mmol/L (98-107); Estimated GFR 92; Glucose 89 mg/dL (70-105); Potassium 3.4 mmol/L (3.5-5.1); Sodium 138 mmol/L (136-145)
[2023-12-05] MEDS: Insulin Glargine 30 UNITS/0.3 ML VIAL SC SCH (09:24)
[2023-12-05 09:54] LABS: #Basophils 0.05 10x3/uL (0.0-0.2); %Basophils 0.6 % (0.0-1.0); %Lymphocytes 38.4 % (21.0-51.0); %Monocytes 6.9 % (0.0-10.0); %Neutrophils 50.8 % (42.0-75.0); Hematocrit 37.7 % (36.0-47.0); Hemoglobin 12.7 g/dL (12.0-16.0); Mean Corpuscular HGB CONC 33.7 g/dL (32.0-36.0); Mean Corpuscular Hemoglobin 27.4 pg (27.0-31.0); Mean Corpuscular Volume 81.3 fL (78.0-98.0); Mean Platelet Volume 11.4 fL (7.4-10.4); Platelet Count 214 10x3/uL (130-400); Red Blood Cell (RBC) Count 4.64 mill/uL (4.20-5.40)
[2023-12-05 10:37] LABS: Anion Gap 9 mmol/L (10-20); BUN (Urea Nitrogen) 11 mg/dL (9.8-20.1); Calc. Creatinine Clearance 114 mL/min (70-130); Calcium 8.6 mg/dL (7.8-10.44); Carbon Dioxide 27 mmol/L (22-29); Chloride 105 mmol/L (98-107); Estimated GFR 94; Glucose 156 mg/dL (70-105); Sodium 137 mmol/L (136-145)
[2023-12-06] MEDS: Ondansetron PF 4 MG/2 ML Vial IVP PRN (05:30)
[2023-12-06 05:33] VITALS: TEMP 98.4
[2023-12-06 05:55] LABS: #Basophils 0.05 10x3/uL (0.0-0.2); %Basophils 0.5 % (0.0-1.0); %Eosinophils 3.2 % (0.0-10.0); %Lymphocytes 31.2 % (21.0-51.0); %Monocytes 6.3 % (0.0-10.0); %Neutrophils 58.5 % (42.0-75.0); Hemoglobin 12.9 g/dL (12.0-16.0); Mean Corpuscular HGB CONC 33.9 g/dL (32.0-36.0); Mean Corpuscular Hemoglobin 27.5 pg (27.0-31.0); Mean Platelet Volume 11.6 fL (7.4-10.4); Platelet Count 219 10x3/uL (130-400); RBC Distribution Width 12.1 % (11.5-14.5); Red Blood Cell (RBC) Count 4.69 mill/uL (4.20-5.40)
[2023-12-06 06:15] LABS: Anion Gap 13 mmol/L (10-20); BUN (Urea Nitrogen) 10 mg/dL (9.8-20.1); Calc. Creatinine Clearance 113 mL/min (70-130); Calcium 8.5 mg/dL (7.8-10.44); Carbon Dioxide 24 mmol/L (22-29); Chloride 104 mmol/L (98-107); Estimated GFR 92; Glucose 185 mg/dL (70-105); Sodium 137 mmol/L (136-145)
[2023-12-06 07:27] VITALS: BP 135/83
== END 2023-12-06 11:06 | disposition home or self-care (01) | DRG 638 ==
LOC: ERS 00:34 → IMCU/EMU 06:38 → T4-A 12-03 12:29
PROVIDERS: ADMIT Family Medicine; ATTEND Hospitalist
DX: E11.649 Type 2 diabetes mellitus with hypoglycemia without coma (principal); R65.10 Systemic inflammatory response syndrome (SIRS) of non-infectious origin without acute organ dysfunction; T38.3X5A Adverse effect of insulin and oral hypoglycemic [antidiabetic] drugs, initial encounter; E11.43 Type 2 diabetes mellitus with diabetic autonomic (poly)neuropathy; K31.84 Gastroparesis; F31.9 Bipolar disorder, unspecified; E78.00 Pure hypercholesterolemia, unspecified; E86.0 Dehydration; F41.9 Anxiety disorder, unspecified; Z88.5 Allergy status to narcotic agent; Z86.711 Personal history of pulmonary embolism; Z79.899 Other long term (current) drug therapy; Z79.84 Long term (current) use of oral hypoglycemic drugs; Z79.4 Long term (current) use of insulin; Z98.51 Tubal ligation status; Z90.49 Acquired absence of other specified parts of digestive tract; Z90.710 Acquired absence of both cervix and uterus
CPT/HCPCS: 36415; 36416; 71045; 74177; 80048; 80053; 80178; 81001; 82533; 83605; 83690; 83735; 84443; 84484; 85025; 87086; J0696; J1650; J1815; J2405; J2470; J2919; J3490; Q0177; Q9967

== ENCOUNTER 2024-02-15 18:23 | Emergency (ER) | payer OTHER, MEDICARE ==
[2024-02-15] MEDS ORDERED: Dexamethasone 10 MG/ML VIAL ONE (19:55)
== END 2024-02-15 19:58 | disposition home or self-care (01) ==
LOC: ERS 18:23
DX: H92.01 Otalgia, right ear (principal); J02.9 Acute pharyngitis, unspecified; E11.9 Type 2 diabetes mellitus without complications
CPT/HCPCS: 87081; 87430; J1100; 99282

== ENCOUNTER 2024-03-09 12:09 | Emergency (ER) | payer OTHER ==
[2024-03-09 12:51] LABS: Actual Bicarbonate (HCO3v) 23.6 mEq/L (22-28); Analyzer IN Cardio ER; Calcium, Ionized (venous) 1.18 mmol/L (1.16-1.32); Chloride (VBG) 99 mmol/L (98-106); Hematocrit-VBG 47 % (36.0-47.0); Potassium (VBG) 4.34 mmol/L (3.70-5.30); Sodium 137 mmol/L (133-146); pH (venous) 7.353 (7.32-7.43)
[2024-03-09 12:53] LABS: #Basophils 0.04 10x3/uL (0.0-0.2); %Basophils 0.4 % (0.0-1.0); %Eosinophils 2.5 % (0.0-10.0); %Lymphocytes 32.6 % (21.0-51.0); %Monocytes 6.2 % (0.0-10.0); %Neutrophils 58.1 % (42.0-75.0); Hematocrit 43.3 % (36.0-47.0); Hemoglobin 15.1 g/dL (12.0-16.0); Mean Corpuscular HGB CONC 34.9 g/dL (32.0-36.0); Mean Corpuscular Hemoglobin 26.7 pg (27.0-31.0); Mean Corpuscular Volume 76.5 fL (78.0-98.0); Platelet Count 243 10x3/uL (130-400); Red Blood Cell (RBC) Count 5.66 mill/uL (4.20-5.40)
[2024-03-09 13:15] LABS: Troponin I Less than 0.010 ng/mL (< 0.028)
[2024-03-09 13:28] LABS: ALT (SGPT) 37 U/L (Less than 34); AST (SGOT) 21 U/L (11-34); Albumin 4.1 g/dL (3.1-4.5); Alkaline Phosphatase 138 U/L (40-110); Anion Gap 15 mmol/L (10-20); BUN (Urea Nitrogen) 12 mg/dL (9.8-20.1); Bilirubin, Total 0.8 mg/dL (0.3-1.2); Calc. Creatinine Clearance 0 mL/min (70-130); Calcium 9.7 mg/dL (7.8-10.44); Carbon Dioxide 23 mmol/L (22-29); Chloride 101 mmol/L (98-107); Estimated GFR 95; Globulin 4.3 g/dL (2.4-3.5); Glucose 433 mg/dL (70-105); Magnesium 1.7 mg/dL (1.6-2.6); Potassium 4.2 mmol/L (3.5-5.1); Protein, Total 8.4 g/dL (6.0-8.3); Sodium 135 mmol/L (136-145)
[2024-03-09] MEDS ORDERED: Insulin Regular, Human 100 UNIT/ML 10 ML VIAL ONE (13:30)
[2024-03-09] MEDS ORDERED: Ketorolac Tromethamine 30 MG (1 mL) VIAL ONE (13:41)
[2024-03-09 14:02] LABS: Phosphorus 3.5 mg/dL (2.5-4.5)
[2024-03-09 14:59] LABS: Bacteria/HPF None Seen HPF (None Seen); Bilirubin Negative (Negative); Blood, Urine Negative (Negative); CAUTI Indications for Culture Dysuria,urgency,freq; Clarity Clear (Clear); Glucose, Urine (Dipstick) Greater than 1000 mg/dL (Negative); Ketone, Urine 40 mg/dL (Negative); Leukocyte 25 Leu/uL (Negative); Nitrite Negative (Negative); Protein, Urine (Dipstick) Negative (Neg-Trace); Specific Gravity, Urine 1.042 (1.002-1.036); Squamous Epithelial 0-3 HPF (0-3); Urobilinogen Normal mg/dL (Less than 2); WBC/HPF None Seen HPF (0-3)
[2024-03-09 15:05] LABS: Urine Culture Reflex No No
== END 2024-03-09 15:52 | disposition home or self-care (01) ==
LOC: ERS 12:09
DX: E11.65 Type 2 diabetes mellitus with hyperglycemia (principal)
CPT/HCPCS: 71045; 80053; 81001; 82010; 82805; 82962; 83605; 83735; 84100; 84484; 85025; 87428; 93005; 94760; 96361; 96374; 96375; 99284; J1815; J1885; 36415; 36416

== ENCOUNTER 2024-09-25 15:31 | Emergency (ER) | payer OTHER ==
[2024-09-25 18:10] LABS: Bacteria/HPF 1+ HPF (None Seen); CAUTI Indications for Culture Dysuria,urgency,freq; Glucose, Urine (Dipstick) Greater than 1000 mg/dL (Negative); Leukocyte 75 Leu/uL (Negative); Protein, Urine (Dipstick) 10 mg/dL (Neg-Trace); RBC/HPF 0-3 HPF (0-3); Specific Gravity, Urine 1.040 (1.002-1.036); WBC/HPF 21-50 HPF (0-3)
[2024-09-25 18:12] LABS: Urine Culture Reflex Yes Yes
[2024-09-25 18:15] LABS: #Basophils 0.05 10x3/uL (0.0-0.2); #Eosinophils 0.11 10x3/uL (0.0-0.7); #Monocytes 1.20 10x3/uL (0.11-0.59); #Neutrophils 6.85 10x3/uL (1.40-6.50); %Basophils 0.4 % (0.0-1.0); %Eosinophils 0.9 % (0.0-10.0); %Lymphocytes 29.8 % (21.0-51.0); %Monocytes 10.2 % (0.0-10.0); %Neutrophils 58.4 % (42.0-75.0); Hematocrit 41.8 % (36.0-47.0); Hemoglobin 14.3 g/dL (12.0-16.0); Mean Corpuscular Hemoglobin 26.9 pg (27.0-31.0); Mean Corpuscular Volume 78.7 fL (78.0-98.0); Platelet Count 262 10x3/uL (130-400); Red Blood Cell (RBC) Count 5.31 mill/uL (4.20-5.40); White Blood Cell (WBC) Count 11.74 10x3/uL (4.8-10.8)
[2024-09-25] MEDS ORDERED: Ondansetron PF 4 MG/2 ML Vial ONE (18:18)
[2024-09-25] MEDS ORDERED: Ketorolac Tromethamine 30 MG (1 mL) VIAL ONE (18:18)
[2024-09-25 18:39] LABS: ALT (SGPT) 25 U/L (Less than 34); AST (SGOT) 14 U/L (11-34); Albumin 3.8 g/dL (3.1-4.5); Alkaline Phosphatase 105 U/L (40-110); Anion Gap 16 mmol/L (10-20); BUN (Urea Nitrogen) 12 mg/dL (9.8-20.1); Bilirubin, Total 0.8 mg/dL (0.3-1.2); Calc. Creatinine Clearance 0 mL/min (70-130); Calcium 9.0 mg/dL (7.8-10.44); Carbon Dioxide 22 mmol/L (22-29); Chloride 100 mmol/L (98-107); Globulin 4.3 g/dL (2.4-3.5); Glucose 364 mg/dL (70-105); Lipase 31 U/L (8-78); Potassium 3.8 mmol/L (3.5-5.1); Sodium 134 mmol/L (136-145)
[2024-09-25] MEDS ORDERED: cefTRIAXone (ROCEPHIN) 2 GM VIAL ONE (19:15)
== END 2024-09-25 20:38 | disposition home or self-care (01) ==
LOC: ERS 15:31
DX: E11.65 Type 2 diabetes mellitus with hyperglycemia (principal); N39.0 Urinary tract infection, site not specified; E78.00 Pure hypercholesterolemia, unspecified; F17.290 Nicotine dependence, other tobacco product, uncomplicated; Z79.84 Long term (current) use of oral hypoglycemic drugs; Z79.4 Long term (current) use of insulin; Z79.899 Other long term (current) drug therapy
CPT/HCPCS: 71045; 80053; 81001; 82962; 83690; 84484; 85025; 87086; 87426; 93005; J0696; J1815; J1885; J2405; 36415; 36416; 96361; 96365; 96372; 96375

== ENCOUNTER 2024-10-15 18:02 | Emergency (ER) | payer OTHER ==
[~2024-10-15 18:02] MED LIST changes: -Iopamidol-370 76% 500 ML 1 ML ONE; +Iopamidol-370 76% 500 ML MDV (1 ML CHARGE) ONE
[2024-10-15 21:12] LABS: #Basophils 0.04 10x3/uL (0.0-0.2); #Eosinophils 0.23 10x3/uL (0.0-0.7); #Monocytes 0.65 10x3/uL (0.11-0.59); #Neutrophils 5.88 10x3/uL (1.40-6.50); %Basophils 0.4 % (0.0-1.0); %Eosinophils 2.1 % (0.0-10.0); %Lymphocytes 36.8 % (21.0-51.0); %Monocytes 6.0 % (0.0-10.0); %Neutrophils 54.4 % (42.0-75.0); Hematocrit 36.7 % (36.0-47.0); Hemoglobin 12.5 g/dL (12.0-16.0); Mean Corpuscular Hemoglobin 26.3 pg (27.0-31.0); Mean Corpuscular Volume 77.1 fL (78.0-98.0); Platelet Count 232 10x3/uL (130-400); Red Blood Cell (RBC) Count 4.76 mill/uL (4.20-5.40); White Blood Cell (WBC) Count 10.81 10x3/uL (4.8-10.8)
[2024-10-15] MEDS ORDERED: Ketorolac Tromethamine 30 MG (1 mL) VIAL ONE (21:28)
[2024-10-15 21:41] LABS: ALT (SGPT) 15 U/L (Less than 34); AST (SGOT) 14 U/L (11-34); Albumin 3.7 g/dL (3.1-4.5); Alkaline Phosphatase 88 U/L (40-110); Anion Gap 11 mmol/L (10-20); BUN (Urea Nitrogen) 10 mg/dL (9.8-20.1); Bilirubin, Total 0.9 mg/dL (0.3-1.2); Calc. Creatinine Clearance 0 mL/min (70-130); Calcium 9.2 mg/dL (7.8-10.44); Carbon Dioxide 27 mmol/L (22-29); Chloride 105 mmol/L (98-107); Globulin 3.4 g/dL (2.4-3.5); Glucose 175 mg/dL (70-105); Potassium 3.3 mmol/L (3.5-5.1); Sodium 140 mmol/L (136-145)
== END 2024-10-15 23:40 | disposition home or self-care (01) ==
LOC: ERS 18:02
DX: R07.81 Pleurodynia (principal); R06.00 Dyspnea, unspecified; E87.6 Hypokalemia; E11.9 Type 2 diabetes mellitus without complications; F17.290 Nicotine dependence, other tobacco product, uncomplicated
CPT/HCPCS: 71045; 71275; 74177; 80053; 84484; 85025; 86141; 87426; 93005; 94760; J1885; 96374; Q9967

== ENCOUNTER 2025-01-26 22:36 | Emergency (ER) | payer OTHER, MEDICAID ==
[2025-01-26 23:01] LABS: Bacteria/HPF None Seen HPF (None Seen); CAUTI Indications for Culture Pelvic or flank pain; Glucose, Urine (Dipstick) Greater than 1000 mg/dL (Negative); Leukocyte 75 Leu/uL (Negative); Protein, Urine (Dipstick) Negative (Neg-Trace); RBC/HPF None Seen HPF (0-3); Specific Gravity, Urine 1.024 (1.002-1.036); WBC/HPF None Seen HPF (0-3)
[2025-01-26 23:05] LABS: Urine Culture Reflex No No
[2025-01-27 01:40] LABS: #Basophils 0.07 10x3/uL (0.0-0.2); #Eosinophils 0.49 10x3/uL (0.0-0.7); #Monocytes 0.59 10x3/uL (0.11-0.59); #Neutrophils 4.15 10x3/uL (1.40-6.50); %Basophils 0.8 % (0.0-1.0); %Eosinophils 5.5 % (0.0-10.0); %Lymphocytes 40.1 % (21.0-51.0); %Monocytes 6.6 % (0.0-10.0); %Neutrophils 46.6 % (42.0-75.0); Hematocrit 34.1 % (36.0-47.0); Hemoglobin 11.6 g/dL (12.0-16.0); Mean Corpuscular Hemoglobin 26.7 pg (27.0-31.0); Mean Corpuscular Volume 78.4 fL (78.0-98.0); Platelet Count 195 10x3/uL (130-400); Red Blood Cell (RBC) Count 4.35 mill/uL (4.20-5.40); White Blood Cell (WBC) Count 8.92 10x3/uL (4.8-10.8)
[2025-01-27 02:00] LABS: ALT (SGPT) 81 U/L (Less than 34); AST (SGOT) 27 U/L (11-34); Albumin 3.6 g/dL (3.1-4.5); Alkaline Phosphatase 108 U/L (40-110); Anion Gap 12 mmol/L (10-20); BUN (Urea Nitrogen) 10 mg/dL (9.8-20.1); Bilirubin, Total 0.6 mg/dL (0.3-1.2); Calc. Creatinine Clearance 0 mL/min (70-130); Calcium 8.5 mg/dL (7.8-10.44); Carbon Dioxide 23 mmol/L (22-29); Chloride 106 mmol/L (98-107); Globulin 3.2 g/dL (2.4-3.5); Glucose 253 mg/dL (70-105); Lipase 42 U/L (8-78); Potassium 4.0 mmol/L (3.5-5.1); Sodium 137 mmol/L (136-145)
[2025-01-27] MEDS ORDERED: Ketorolac Tromethamine 30 MG (1 mL) VIAL ONE (03:33)
[2025-01-27] MEDS ORDERED: Ondansetron PF 4 MG/2 ML Vial ONE (04:00)
== END 2025-01-27 06:19 | disposition home or self-care (01) ==
LOC: ERS 22:36
DX: R10.A1 Flank pain, right side (principal); M79.10 Myalgia, unspecified site; E11.9 Type 2 diabetes mellitus without complications; F17.290 Nicotine dependence, other tobacco product, uncomplicated
CPT/HCPCS: 74176; 80053; 81001; 82962; 83690; 85025; J1885; J2405; 36416; 96374; 96375